=== PATIENT | male | born 1965 | race Caucasian/White ===

== ENCOUNTER 2020-09-30 17:24 | Emergency (ER) | payer OTHER, SELFPAY ==
[2020-09-30 17:25] VITALS: BP 128/75; PULSE 76; RESP 14; TEMP 35.3; O2SAT 96; BMI 32.1
--- NOTE | 2020-09-30 18:27 | CT_ITS ---
INDICATION: flank pain lt side EXAMINATION: CT Abdomen And Pelvis W/O Contrast Injection TECHNIQUE: Helically acquired images were obtained of the abdomen and pelvis without the use of IV contrast. A radiation dose optimization technique was used for this scan. Oral contrast: None. COMPARISON: None FINDINGS: Evaluation of the solid organs and vascular structures is limited without intravenous contrast. Visualized lung bases: Unremarkable Liver: Unremarkable Gallbladder: Contracted. Spleen: Unremarkable Pancreas: Unremarkable Adrenal Glands: Unremarkable Kidneys: Unremarkable Vasculature: Mild scattered aortoiliac atherosclerotic calcifications. GI Tract: Unremarkable Lymphadenopathy: None Peritoneum: No ascites. Bladder: Unremarkable Reproductive organs: Unremarkable Bones/Soft tissues: There are diffuse degenerative changes of the spine. CT/Abdomen/Pelvis without Cont IMPRESSION: No acute abnormalities in the abdomen or pelvis. Electronically Signed: Liang Marks MD at 19:28 EDT Tel , Service support ,
[2020-09-30 18:51] LABS: Color, Urine Yellow (Yellow); Glucose, Dipstick Normal (Normal); Ketone-Dipstick Negative (Negative); Leukocyte Esterase-Dipstick Negative /ul (Negative); Nitrite-Dipstick Negative (Negative); Occult Blood-Urine Negative /ul (Negative); Protein-Dipstick Negative (Negative); Specific Gravity, Urine 1.025 (1.002-1.030); Urine Bilirubin Dipstick Negative (Negative); Urine Clarity Clear (Clear); Urine Urobilinogen Normal (Normal)
[2020-09-30 18:52] LABS: Bacteria 0 SEEN /hpf (None Seen); Mucous, Urine 0 SEEN /hpf (<or=2+); Red Blood Cells-Urine 0 SEEN /hpf (0-5); Squamous Epithelial Cells - UA 0 SEEN /hpf (0-5); White Blood Cells 0 SEEN /hpf (0-5)
[2020-09-30 18:57] LABS: Absolute Lymphocyte Count 2.45 X10^3/uL (0.83-4.51); Absolute Neutrophil Count 4.9 X10^3/uL (2.0-7.7); Basophil# 0.08 X10^3/uL; Basophil% 0.9 % (0-1); Eosinophil# 0.33 X10^3/uL; Eosinophils% 3.9 % (0-5); Hematocrit 43.4 % (40-54); Hemoglobin 14.3 g/dL (13.0-16.5); Lymphocyte # 2.45 X10^3/ul (0.83-4.51); Lymphocyte % 28.9 % (19-41); Mean Corp Hgb Conc 32.9 g/dL (32-36); Mean Corpuscular Hgb 28.9 pg (27.0-32.0); Mean Corpuscular Volume 87.9 fL (80-94); Mean Platelet Vol. 9.8 fl (6.2-12.0); Monocyte# 0.69 X10^3/uL; Monocyte% 8.1 % (0-10); NRBC Flagged by Analyzer 0 % (0-5); Neutrophil # 4.89 X10^3/uL (2.7-7.7); Neutrophil % 57.8 % (47-70); Platelet Count 241 K/mm3 (150-450); RBC Distribution Width SD 41.9 fl (35.1-43.9); Red Blood Count 4.94 M/mm3 (4.6-6.2); White Blood Count 8.5 K/mm3 (4.4-11.0)
[2020-09-30 19:05] LABS: Anion Gap 4 (5-15); BUN 16 mg/dL (7-18); BUN/Creat Ratio 15.7 RATIO (10-20); Calcium,Total 8.9 mg/dL (8.5-10.1); Chloride 107 mmol/L (98-107); Creatinine, Serum 1.02 mg/dL (0.70-1.30); EST Glomerular Filtration Rate 80 mL/min (>60); Est Glom Filt Rate - Afr Amer 97 mL/min (>60); Estimated Creatinine Clearance 91.39 ml/min; Glucose 88 mg/dL (74-106); Potassium 3.8 mmol/L (3.5-5.1); Sodium Level 139 mmol/L (136-145)
--- NOTE | 2020-09-30 20:18 | EX.ED.DYSGE1 ---
HPI History of Present Illness Chief Complaint: Flank Pain Narrative Narrative: Patient presents with left flank pain and left paraspinal back pain for the past 2 days he thinks this may be a kidney stone. He has no urinary symptoms no testicular pain no abdominal pain. The pain does not radiate down his leg he has no bowel or bladder compromise. He has no urinary retention symptoms. [facility] Medical History (Updated 09/30/20 @ 20:[address] Soy Santana MD) HTN (hypertension) Home Medications Hydrochlorothiazide 06/11/13 [History Last Taken Unknown] aspirin 325 mg PO DAILY@0800 #90 tablet 06/12/13 [Rx Last Taken Unknown] metoprolol succinate 25 mg PO DAILY #90 tablet 06/12/13 [Rx Last Taken Unknown] atorvastatin 80 mg tablet 80 mg PO QHS #30 tab 11/13/17 [Rx Last Taken Unknown] lisinopril 10 mg tablet 10 mg PO DAILY #30 tab 11/13/17 [Rx Last Taken Unknown] Allergy/AdvReac Type Severity Reaction Status Date / Time No Known Allergies Allergy Verified 09/30/20 17:25 Social History Smoking Status: Current some day smoker tobacco type: smokeless tobacco ROS ROS ED ROS Narrative Past medical history: Reviewed Medications: Reviewed Social history: Noncontributory Review of systems: All systems negative except as indicated General: No fever Eyes: No visual changes ENT: No upper airway congestion, normal voice Neck: No neck pain Cardiovascular: No chest pain Respiratory: No shortness of breath or cough Gastrointestinal: No abdominal pain, nausea vomiting or diarrhea Genitourinary: No dysuria Musculoskeletal: Denies myalgias no difficulty with ambulation. Back: Back pain as in HPI Skin: No rash Neurological: No memory loss, confusion or any focal weakness Psych: No recent behavioral changes Hematologic: No easy bleeding or easy bruising EXAM Physical Exam Narrative Exam Narrative: Vitals reviewed General: Patient appears in some discomfort HEENT: Moist mucous membranes Neck: Nontender Cardiovascular normal heart rate Respiratory: No respiratory difficulty speaking in full sentences Abdomen: Soft and nontender, there is no suprapubic mass or pain Back: There is some tenderness over the lumbar region, pain is spinal and paraspinal both. Extremities: Moves all extremities without joint pain or signs of trauma Neurological: There is normal plantar flexion and dorsiflexion of both feet and great toes. Patellar and Achilles reflexes are normal. Normal strength and sensation. Negative straight leg test. Skin: No rash Psychiatric: Slightly anxious. Const Vital Signs: 09/30/20 17:25 Temperature 95.6 F L Temperature Source Temporal Pulse Rate 76 Respiratory Rate 14 Blood Pressure 128/75 H Blood Pressure Mean 92 Pulse Ox 96 Oxygen Delivery Method Room Air MDM MDM MDM Narrative Medical decision making narrative: Patient was quite worried about a possible kidney stone, results do not show a kidney stone he appears well I will discharge him with reassurance he does not want any analgesia. Lab Data Labs: Laboratory Results - last 24 hr 09/30/20 09/30/20 09/30/20 18:37 18:37 18:45 WBC 8.5 RBC 4.94 Hgb 14.3 Hct 43.4 MCV 87.9 MCH 28.9 MCHC 32.9 RDW Std Deviation 41.9 RDW Coeff of Luis Armando 13.0 Plt Count 241 MPV 9.8 Immature Gran % (Auto) 0.400 Neut % (Auto) 57.8 Lymph % (Auto) 28.9 [place] % (Auto) 8.1 Eos % (Auto) 3.9 Baso % (Auto) 0.9 Absolute Neuts (auto) 4.9 Absolute Lymphs (auto) 2.45 Nucleated RBC % 0 Sodium 139 Potassium 3.8 Chloride 107 Carbon Dioxide 28.0 Anion Gap 4 L BUN 16 Creatinine 1.02 Estim Creat Clear Calc 91.39 Est GFR (MDRD) Af Amer 97 Est GFR (MDRD) Non-Af 80 BUN/Creatinine Ratio 15.7 Glucose 88 Calcium 8.9 Urine Color Yellow Urine Clarity Clear Urine pH 5.0 Ur Specific [place] 1.025 Urine Protein Negative Urine Glucose (UA) Normal Urine Ketones Negative Urine Occult Blood Negative Urine Nitrite Negative Urine Bilirubin Negative Urine Urobilinogen Normal Ur Leukocyte Esterase Negative Urine RBC 0 SEEN Urine WBC 0 SEEN Ur Squamous Epith Cells 0 SEEN Urine Bacteria 0 SEEN Urine Mucus 0 SEEN Radiography Diagnostic Testing: Radiology Impression Abdomen/Pelvis CT 09/30/20 18:27 IMPRESSION: No acute abnormalities in the abdomen or pelvis. Electronically Signed: Liang Marks MD at 19:28 EDT Tel , Service support , Discharge Plan Triage Chief Complaint: Flank Pain ED Provider: Soy Santana Dx/Rx/DC Orders Clinical Impression: Back pain Instructions: Back Exercises: Back Press, Back Exercises: Hip Rotator Stretch Prescriptions: No Action Hydrochlorothiazide RF: 0 aspirin 325 MG tablet 325 mg PO DAILY@0800 Qty: 90 RF: 3 metoprolol succinate 25 MG tablet 25 mg PO DAILY Qty: 90 RF: 3 atorvastatin 80 mg tablet 80 mg PO QHS Qty: 30 RF: 11 lisinopril 10 mg tablet 10 mg PO DAILY Qty: 30 RF: 11 Primary Care Provider: Darien Ball III Referrals: Darien Ball III, MD [Primary Care Provider] - 2 Days Disposition Disposition: Home, Self Care
== END 2020-09-30 20:24 | disposition home or self-care (01) ==
PROVIDERS: Emergency Provider Emergency Medicine; PCP Family Medicine
DX: R10.9 Unspecified abdominal pain (principal); M54.9 Dorsalgia, unspecified; I10 Essential (primary) hypertension; F17.210 Nicotine dependence, cigarettes, uncomplicated
CPT/HCPCS: 74176; 80048; 81001; 85025; 99282; A4216

== ENCOUNTER → 2021-01-20 | Outpatient (CLI) | payer OTHER, SELFPAY | END | disposition home or self-care (01) | LOC: LABSPEC 13:39 | PROVIDERS: Referring Provider Physician Assistant; Visit Provider Physician Assistant | DX: U07.1 COVID-19 (principal) | CPT/HCPCS: 87635; U0005; U0003 ==

== ENCOUNTER 2021-01-21 15:52 | Outpatient (CLI) | payer OTHER, SELFPAY ==
[2021-01-21] MEDS: 0.9% Saline Lock 10 ML Syringe IV (16:03)
[2021-01-21 16:04] VITALS: BP 132/90; PULSE 85; RESP 16; TEMP 37.4; BMI 32.4
[2021-01-21 16:45] VITALS: BP 130/80; PULSE 83; RESP 16; TEMP 37.5; O2SAT 96
[2021-01-21 17:50] VITALS: BP 132/72; PULSE 77; RESP 16; TEMP 37.2
== END 2021-01-21 17:50 | disposition home or self-care (01) ==
LOC: MS3OUT 15:53 → MS3 15:53
PROVIDERS: Referring Provider Nurse Practitioner Adult Health; Visit Provider Nurse Practitioner Adult Health
DX: Z23 Encounter for immunization (principal); U07.1 COVID-19
CPT/HCPCS: J7050; M0243; A4216; Q0244

== ENCOUNTER 2021-01-27 13:54 | Emergency (ER) | payer OTHER, SELFPAY ==
[2021-01-27 13:55] VITALS: BP 150/86; PULSE 90; RESP 18; TEMP 36.1; O2SAT 96; BMI 31.6
--- NOTE | 2021-01-27 14:08 | EX.ED.DYSGE1 ---
HPI History of Present Illness Chief Complaint: General Illness Informant: patient and spouse/S.O. Narrative Narrative: 55-year-old male with history of hypertension and hypercholesterolemia presents to the emergency room with fatigue. Patient states that he was tested on 06 January and was positive for Covid. He states that he continues to feel fatigue and nothing tastes good. is concerned that he is dehydrated because he has not been drinking as much. He notes that he has lost some weight. Currently other than fatigue he is not really experiencing any other symptomology. He notes a slight nonproductive cough. Patient did receive monoclonal antibody infusion approximately 1 week ago [facility] Medical History COVID-19 HTN (hypertension) Hypercholesterolemia Home Medications metoprolol succinate 25 mg PO DAILY #90 tablet 06/12/13 [Rx Last Taken Unknown] atorvastatin 80 mg tablet 80 mg PO QHS #30 tab 11/13/17 [Rx Last Taken Unknown] lisinopril 10 mg tablet 10 mg PO DAILY #30 tab 11/13/17 [Rx Last Taken Unknown] hydrochlorothiazide 12.5 mg PO DAILY 01/21/21 [History Last Taken Unknown] aspirin 81 mg PO DAILY 01/27/21 [History Last Taken Unknown] Allergy/AdvReac Type Severity Reaction Status Date / Time No Known Allergies Allergy Verified 01/27/21 13:57 Social History (Updated 01/27/21 @ 14:[address] Teddy Carpenter, ) current gender identity: male Smoking Status: Current some day smoker tobacco type: smokeless tobacco substance use type: does not use ROS ROS ED ROS Narrative Generalized fatigue Constitutional Constitutional ED: Reports sweats; Denies chills or weight loss Eyes Eyes: Denies change in vision or diplopia ENT ENT ED: Denies ear pain, rhinorrhea or sore throat Cardiovascular Cardiovascular: Denies chest pain, orthopnea, palpitations or racing heartbeat Respiratory/Chest Respiratory/Chest: Reports cough; Denies dyspnea or orthopnea Gastrointestinal Gastrointestinal: Denies abdominal pain, diarrhea, nausea or vomiting Genitourinary Genitourinary ED: Denies dysuria, hematuria or urinary frequency Musculoskeletal Musculoskeletal: Denies arthralgias or myalgias Integumentary Denies abscess or rash Neurologic Neurologic: Denies headache(s) or weakness Psychiatric Psychiatric: Denies anxiety, depression, suicidal ideation or suicidal thoughts Endocrine Endocrinology: Denies polydipsia, polyphagia or polyuria Allergic/Immunologic Allergic/Immunologic ED: Denies mouth swelling, tongue swelling or urticaria EXAM Physical Exam Const Vital Signs: 01/27/21 13:55 01/27/21 14:34 Temperature 97 F L Temperature Source Temporal Pulse Rate 90 Respiratory Rate 18 Respiratory Effort Normal Respiratory Pattern Normal Blood Pressure 150/86 H Blood Pressure Mean 107 Pulse Ox 96 Oxygen Delivery Method Room Air Positive well nourished and well developed General Appearance ED: well developed HEENT Reports normocephalic, head/scalp atraumatic, TM's clear and moist mucous membranes Negative for trauma Tympanic Membrane ED: Yes TM's clear Eyes PERRL and EOMs intact bilaterally Neck no lymphadenopathy, supple and no JVD Resp normal respiratory effort and clear to auscultation bilaterally Cardio regular rate, regular rhythm and no murmurs GI normal to inspection, nondistended, normoactive bowel sounds and non-tender Palpation: soft Back/Spine no CVA tenderness and normal ROM Lumbar Spine / Lower Back: Negative for lumbar spinal tenderness Extremity normal to inspection General Extremety ED: Negative for edema General Extremity: Negative for edema Neuro oriented x3 and CN's II-XII intact bilaterally Sensorium / Orientation: alert Motor Exam: strength 5/5 throughout Psych mental status grossly normal Mood & Affect: Negative for depressed or tearful Skin no rashes or lesions noted and no wounds MDM MDM MDM Narrative Medical decision making narrative: Blood work shows a white count of 7.4. Sodium potassium chloride within normal limits. Anion gap is 6 with CO2 of 30. Creatinine 0.99 and a BUN of 21. Slight elevation of his transaminases and bilirubin compared to his baseline. Patient received a liter of IV fluids. He will be discharged home with continued supportive care. Lab Data Attestation: I reviewed the patient's lab results. Labs: Laboratory Results - last 24 hr 01/27/21 01/27/21 14:10 14:10 WBC 7.4 RBC 5.20 Hgb 15.0 Hct 44.1 MCV 84.8 MCH 28.8 MCHC 34.0 RDW Std Deviation 39.0 RDW Coeff of Luis Armando 12.7 Plt Count 300 MPV 9.5 Immature Gran % (Auto) 0.500 Neut % (Auto) 74.8 H Lymph % (Auto) 13.9 L [place] % (Auto) 8.9 Eos % (Auto) 1.6 Baso % (Auto) 0.3 Absolute Neuts (auto) 5.6 Absolute Lymphs (auto) 1.03 Nucleated RBC % 0 Sodium 136 Potassium 3.8 Chloride 100 Carbon Dioxide 30.0 Anion Gap 6 BUN 21 H Creatinine 0.99 Estim Creat Clear Calc 94.16 Est GFR (MDRD) Af Amer 101 Est GFR (MDRD) Non-Af 83 BUN/Creatinine Ratio 21.3 H Glucose 116 H Calcium 9.0 Total Bilirubin 1.10 H AST 48 H ALT 100 H Alkaline Phosphatase 80 Total Protein 7.5 Albumin 2.9 L Globulin 4.6 H Albumin/Globulin Ratio 0.6 L Discharge Plan Triage Chief Complaint: General Illness ED Provider: Teddy Carpenter Dx/Rx/DC Orders Clinical Impression: COVID-19 Instructions: Coronavirus Disease 2019 (COVID-19): Caring for Yourself or Others Prescriptions: No Action metoprolol succinate 25 MG tablet 25 mg PO DAILY Qty: 90 RF: 3 hydrochlorothiazide 12.5 mg capsule 12.5 mg PO DAILY RF: 0 aspirin 81 mg tablet,delayed release (DR/EC) 81 mg PO DAILY RF: 0 atorvastatin 80 mg tablet 80 mg PO QHS Qty: 30 RF: 11 lisinopril 10 mg tablet 10 mg PO DAILY Qty: 30 RF: 11 Primary Care Provider: Care Physician,No Primary Referrals: NOT,DEFINED [NON-STAFF] - Disposition Disposition: Home, Self Care
[2021-01-27 14:26] LABS: Absolute Lymphocyte Count 1.03 X10^3/uL (0.83-4.51); Absolute Neutrophil Count 5.6 X10^3/uL (2.0-7.7); Basophil# 0.02 X10^3/uL; Basophil% 0.3 % (0-1); Eosinophil# 0.12 X10^3/uL; Eosinophils% 1.6 % (0-5); Hematocrit 44.1 % (40-54); Lymphocyte # 1.03 X10^3/ul (0.83-4.51); Lymphocyte % 13.9 % (19-41); Mean Corpuscular Hgb 28.8 pg (27.0-32.0); Mean Corpuscular Volume 84.8 fL (80-94); Mean Platelet Vol. 9.5 fl (6.2-12.0); Monocyte# 0.66 X10^3/uL; Monocyte% 8.9 % (0-10); NRBC Flagged by Analyzer 0 % (0-5); Neutrophil # 5.56 X10^3/uL (2.7-7.7); Neutrophil % 74.8 % (47-70); Platelet Count 300 K/mm3 (150-450); RBC Distribution Width CV 12.7 % (11.6-14.6); White Blood Count 7.4 K/mm3 (4.4-11.0)
[2021-01-27] MEDS: 0.9% Normal Saline 1,000 ML 1000 ML IV (14:31)
[2021-01-27 14:39] LABS: ALB/GLOB Ratio 0.6 RATIO (0.9-2.4); AST(SGOT) 48 U/L (15-37); Alanine Aminotransfer ALT/SGPT 100 U/L (16-61); Albumin, Serum 2.9 g/dL (3.2-5.0); Alkaline Phosphatase 80 U/L (45-117); Anion Gap 6 (5-15); BUN 21 mg/dL (7-18); BUN/Creat Ratio 21.3 RATIO (10-20); Chloride 100 mmol/L (98-107); Creatinine, Serum 0.99 mg/dL (0.70-1.30); EST Glomerular Filtration Rate 83 mL/min (>60); Est Glom Filt Rate - Afr Amer 101 mL/min (>60); Estimated Creatinine Clearance 94.16 ml/min; Globulin 4.6 g/dL (2.2-4.2); Glucose 116 mg/dL (74-106); Potassium 3.8 mmol/L (3.5-5.1); Protein, Total 7.5 g/dL (6.4-8.2); Sodium Level 136 mmol/L (136-145)
[2021-01-27 15:15] LABS: Bacteria 0 SEEN /hpf (None Seen); Mucous, Urine 0 SEEN /hpf (<or=2+); Red Blood Cells-Urine 0 SEEN /hpf (0-5)
[2021-01-27 15:17] LABS: Color, Urine Yellow (Yellow); Glucose, Dipstick Normal (Normal); Ketone-Dipstick 15 mg/dl (Negative); Leukocyte Esterase-Dipstick 25 /ul (Negative); Nitrite-Dipstick Negative (Negative); Occult Blood-Urine Negative /ul (Negative); Protein-Dipstick 30 mg/dl (Negative); Specific Gravity, Urine 1.015 (1.002-1.030); Urine Bilirubin Dipstick Negative (Negative); Urine Clarity Sl. Cloudy (Clear); Urine Urobilinogen 4 mg/dl (Normal)
[2021-01-27 15:22] LABS: Squamous Epithelial Cells - UA 0-5 SEEN /hpf (0-5); White Blood Cells 0-5 SEEN /hpf (0-5)
[2021-01-27 16:03] VITALS: PULSE 81; RESP 18; O2SAT 98
== END 2021-01-27 16:04 | disposition home or self-care (01) ==
LOC: ED 14:15
PROVIDERS: Emergency Provider Emergency Medicine
DX: U07.1 COVID-19 (principal); I10 Essential (primary) hypertension; E78.00 Pure hypercholesterolemia, unspecified; F17.210 Nicotine dependence, cigarettes, uncomplicated; Z79.82 Long term (current) use of aspirin
CPT/HCPCS: 80053; 81001; 85025; 96360; 96361; 99283; J7030

== ENCOUNTER 2021-02-09 17:59 | Emergency (ER) | payer OTHER, SELFPAY ==
[2021-02-09 17:59] VITALS: BP 128/75; PULSE 172; RESP 16; TEMP 36.6; O2SAT 99; BMI 31.4
--- NOTE | 2021-02-09 18:07 | EKG12_ITS ---
Test Reason : HR Blood Pressure : / mmHG Vent. Rate : 170 BPM Atrial Rate : 071 BPM P-R Int : 000 ms QRS Dur : 092 ms QT Int : 276 ms P-R-T Axes : 000 060 053 degrees QTc Int : 464 ms Supraventricular tachycardia Nonspecific ST abnormality Abnormal ECG Confirmed by LÁZARO HUTSON, CHAD ([id number]), video tape editor KYAW MARTINEZ ([id number]) on 02/11/2021 8:38:30 AM Referred By: Confirmed By:CHAD SESAY MD
[2021-02-09 18:16] LABS: Absolute Lymphocyte Count 2.74 X10^3/uL (0.83-4.51); Absolute Neutrophil Count 6.4 X10^3/uL (2.0-7.7); Basophil# 0.06 X10^3/uL; Basophil% 0.6 % (0-1); Eosinophil# 0.13 X10^3/uL; Eosinophils% 1.2 % (0-5); Hematocrit 40.7 % (40-54); Hemoglobin 13.6 g/dL (13.0-16.5); Lymphocyte # 2.74 X10^3/ul (0.83-4.51); Lymphocyte % 26.2 % (19-41); Mean Corp Hgb Conc 33.4 g/dL (32-36); Mean Corpuscular Hgb 28.9 pg (27.0-32.0); Mean Corpuscular Volume 86.4 fL (80-94); Mean Platelet Vol. 9.3 fl (6.2-12.0); Monocyte# 1.06 X10^3/uL; Monocyte% 10.2 % (0-10); NRBC Flagged by Analyzer 0 % (0-5); Neutrophil % 61.3 % (47-70); Platelet Count 275 K/mm3 (150-450); RBC Distribution Width CV 13.3 % (11.6-14.6); RBC Distribution Width SD 41.4 fl (35.1-43.9); Red Blood Count 4.71 M/mm3 (4.6-6.2); White Blood Count 10.4 K/mm3 (4.4-11.0)
--- NOTE | 2021-02-09 18:28 | RAD_ITS ---
EXAM: XR CHEST, 1 VIEW CLINICAL INDICATION: chest pain TECHNIQUE: Frontal view of the chest. This report was created using [employer] report generation technology. COMPARISON: None. FINDINGS: LUNGS AND PLEURAL SPACES: Right lower lobe pneumonia. No pneumothorax. No effusion. HEART: Unremarkable. Cardiac silhouette not enlarged. MEDIASTINUM: Central airways and mediastinal contour are unremarkable. BONES/JOINTS: Unremarkable. SOFT TISSUES: Unremarkable. RAD/Chest 1 View (Portable) IMPRESSION: Right lower lobe pneumonia. Electronically Signed: Jorge Diaz MD at 19:49 EST , Service support ,
[2021-02-09 18:37] LABS: Anion Gap 7 (5-15); BUN 14 mg/dL (7-18); BUN/Creat Ratio 13.9 RATIO (10-20); Calcium,Total 8.9 mg/dL (8.5-10.1); Chloride 106 mmol/L (98-107); Creatinine, Serum 1.01 mg/dL (0.70-1.30); EST Glomerular Filtration Rate 81 mL/min (>60); Est Glom Filt Rate - Afr Amer 98 mL/min (>60); Estimated Creatinine Clearance 92.29 ml/min; Glucose 123 mg/dL (74-106); Potassium 3.8 mmol/L (3.5-5.1); Sodium Level 138 mmol/L (136-145); Troponin-I HS 10 pg/mL (3.0-78.0)
[2021-02-09 18:50] VITALS: BP 100/79; PULSE 165; RESP 25; O2SAT 97
[2021-02-09 19:05] VITALS: BP 123/87; PULSE 103; RESP 14; O2SAT 97
--- NOTE | 2021-02-09 19:09 | EDS_ITS ---
HPI History of Present Illness Chief Complaint: Palpitations Narrative Narrative: 55-year-old male with history of hypertension and SVT presenting with chest pain and palpitations. He states he did not take his metoprolol today. Patient states that he was working and felt like he was a little more short of breath than usual. He is having palpitations. He is not having chest pressure. Patient states that previously he was on metoprolol 25 mg p.o. twice daily however his primary care physician Dr. Ball change this to once a day. Patient states he is previously had this and states he had a negative cardiac catheterization after he had this chest pain. He does admit to a history of hyperlipidemia and hypertension as well. [facility] Medical History COVID-19 HTN (hypertension) Hypercholesterolemia Home Medications metoprolol succinate 25 mg PO DAILY #90 tablet 06/12/13 [Rx Last Taken Unknown] atorvastatin 80 mg tablet 80 mg PO QHS #30 tab 11/13/17 [Rx Last Taken Unknown] lisinopril 10 mg tablet 10 mg PO DAILY #30 tab 11/13/17 [Rx Last Taken Unknown] hydrochlorothiazide 12.5 mg PO DAILY 01/21/21 [History Last Taken Unknown] aspirin 81 mg PO DAILY 01/27/21 [History Last Taken Unknown] Allergy/AdvReac Type Severity Reaction Status Date / Time No Known Allergies Allergy Verified 02/09/21 18:06 Social History Smoking Status: Current some day smoker tobacco type: cigarettes and smokeless tobacco substance use type: does not use ROS ROS ED Constitutional Constitutional ED: Denies chills or fever(s) Eyes Eyes: Denies blurry vision or diplopia ENT ENT ED: Denies rhinorrhea or sore throat Cardiovascular Cardiovascular: Reports chest pain, palpitations and racing heartbeat Respiratory/Chest Respiratory/Chest: Reports dyspnea; Denies cough or sputum Gastrointestinal Gastrointestinal: Denies abdominal pain, nausea or vomiting Genitourinary Genitourinary ED: Denies dysuria or hematuria Musculoskeletal Musculoskeletal: Denies arthralgias or myalgias Integumentary Denies abscess or rash Neurologic Neurologic: Denies headache(s) or paresthesias EXAM Physical Exam Const Vital Signs: 02/09/21 17:59 02/09/21 18:50 02/09/21 19:05 Temperature 97.8 F Temperature Source Temporal Pulse Rate 172 H 165 H 103 H Respiratory Rate 16 25 H 14 Blood Pressure 128/75 H 100/79 123/87 H Blood Pressure Mean 92 86 99 Pulse Ox 99 97 97 Oxygen Delivery Method Room Air Room Air Room Air 02/09/21 20:05 Temperature Temperature Source Pulse Rate 94 Respiratory Rate 19 H Blood Pressure 122/77 H Blood Pressure Mean 92 Pulse Ox 97 Oxygen Delivery Method Room Air Positive well nourished General Appearance ED: NAD; Negative for pallor HEENT normocephalic and atraumatic Eyes PERRL and EOMs intact bilaterally Cardio regular rhythm Rate: tachycardic Extremity normal to inspection Neuro oriented x3 Sensorium / Orientation: awake and alert Psych mental status grossly normal Skin General Skin Exam: Negative for jaundice or pallor Heart Score History: Slightly/Non-Suspicious ECG: Normal Age: >45 - <65 years Risk Factors: 1 or 2 Risk Factors Troponin: </= Normal Limit Score: 2 MDM MDM MDM Narrative Medical decision making narrative: Patient presenting with chest pain and palpitations. States of going on for about 2 hours. Patient has a history of SVT and has not taken his metoprolol today. On arrival his EKG shows a SVT with a rate of 170 bpm on my interpretation. By auscultating the patient's lungs he did spontaneously go into a sinus rhythm at a rate of 103 bpm and slowly went into the 80s. His CBC shows no leukocytosis and his hemoglobin medic are stable. Renal function electrolytes are normal. Troponin initially is 10. I will check a second troponin. Given he has a history of this and did not take his medication I feel if he has 2 - troponins likely he is safe for home. I will give him his metoprolol tonight as he normally takes this in the morning he will continue to take it at night. Patient second troponin came back at 36. This is technically a change of greater than 20. I did speak with Dr. Wharton we discussed his previous heart catheterization as well as risk factors. We both feel as if his troponin is likely bumped due to the SVT for an hour and 1/2 to 2 hours. Patient felt immediately better when his heart converted to sinus rhythm. He is not having typical features of angina. Chest x-ray my interpretation shows right lower lobe infiltrates. He did have a CTA of his chest to rule out PE given his recent diagnosis of Covid. This is negative for pulmonary emboli but does show bilateral pneumonia. I feel this would be consistent with having recent COVID-19. Patient has been checking his pulse ox and has not had any low pulse ox. He has not had a return of any fever. Has been eating and drinking normally. He feels well and has been working. At this point I feel the patient is stable to be discharged home. He will follow up with Dr. Wharton on an outpatient basis. He is given return precautions. Impression: 1. Chest pain 2. SVT 3. History of COVID-19 Lab Data Labs: Laboratory Results - last 24 hr 02/09/21 02/09/21 02/09/21 18:10 18:10 20:05 WBC 10.4 RBC 4.71 Hgb 13.6 Hct 40.7 MCV 86.4 MCH 28.9 MCHC 33.4 RDW Std Deviation 41.4 RDW Coeff of Luis Armando 13.3 Plt Count 275 MPV 9.3 Immature Gran % (Auto) 0.500 Neut % (Auto) 61.3 Lymph % (Auto) 26.2 [place] % (Auto) 10.2 H Eos % (Auto) 1.2 Baso % (Auto) 0.6 Absolute Neuts (auto) 6.4 Absolute Lymphs (auto) 2.74 Nucleated RBC % 0 Sodium 138 Potassium 3.8 Chloride 106 Carbon Dioxide 25.0 Anion Gap 7 BUN 14 Creatinine 1.01 Estim Creat Clear Calc 92.29 Est GFR (MDRD) Af Amer 98 Est GFR (MDRD) Non-Af 81 BUN/Creatinine Ratio 13.9 Glucose 123 H Calcium 8.9 Troponin I High Sens 10 36 Radiography Diagnostic Testing: Clinical Impression(s) from Imaging Studies Chest X-Ray 02/09/21 18:28 IMPRESSION: Right lower lobe pneumonia. Electronically Signed: Jorge Diaz MD at 19:49 EST , Service support , Chest CTA 02/09/21 19:27 IMPRESSION: 1. There is bilateral pneumonia. 2. There is NO PE. Electronically Signed: Jorge Diaz MD at 20:08 EST , Service support , Discharge Plan Triage Chief Complaint: Palpitations ED Provider: Rashad Garvey Dx/Rx/DC Orders Instructions: ED Understanding Supraventricular Tachycardia (SVT) Prescriptions: No Action metoprolol succinate 25 MG tablet 25 mg PO DAILY Qty: 90 RF: 3 hydrochlorothiazide 12.5 mg capsule 12.5 mg PO DAILY RF: 0 aspirin 81 mg tablet,delayed release (DR/EC) 81 mg PO DAILY RF: 0 atorvastatin 80 mg tablet 80 mg PO QHS Qty: 30 RF: 11 lisinopril 10 mg tablet 10 mg PO DAILY Qty: 30 RF: 11 Primary Care Provider: Care Physician,No Primary Referrals: Soy Wharton MD [STAFF PHYSICIAN] - As Needed Care Physician,No Primary [Primary Care Provider] - Disposition Disposition: Home, Self Care
--- NOTE | 2021-02-09 19:13 | EKG12_ITS ---
Test Reason : REPEAT Blood Pressure : / mmHG Vent. Rate : 100 BPM Atrial Rate : 100 BPM P-R Int : 156 ms QRS Dur : 090 ms QT Int : 360 ms P-R-T Axes : 046 049 037 degrees QTc Int : 464 ms Somatic/Motion Artifact Sinus rhythm Low voltage QRS Borderline ECG Confirmed by LÁZARO HUTSON, CHAD ([id number]), publishing editor KYAW MARTINEZ ([id number]) on 02/11/2021 8:39:17 AM Referred By: JAY Confirmed By:CHAD SESAY MD
[2021-02-09] MEDS: Metoprolol(XL)Succ 25 MG Tablet PO (19:16)
--- NOTE | 2021-02-09 19:27 | CT_ITS ---
EXAM: CT ANGIOGRAPHY CHEST WITHOUT AND WITH INTRAVENOUS CONTRAST CLINICAL INDICATION: chest pain TECHNIQUE: Helically acquired angiography images were obtained of the chest without and with intravenous contrast. This CT exam was performed using one or more of the following dose reduction techniques: automated exposure control, adjustment of the mA and/or kV according to patient size, and/or use of iterative reconstruction technique. This report was created using [employer] report generation technology. MIP reconstructed images were created and reviewed. CONTRAST: IV 100mL [id number] COMPARISON: None. FINDINGS: PULMONARY ARTERIES: There is NO PE. Normal in caliber. No evidence of pulmonary embolism. AORTA: There is atherosclerotic calcification of the aortic arch with tortuosity and elongation of the aortic arch and descending thoracic aorta. Normal in caliber. No evidence of dissection. GREAT VESSELS OF AORTIC ARCH: Unremarkable. Normal in caliber. No evidence of dissection. LUNGS AND PLEURAL SPACES: There is bilateral pneumonia. No mass. No pleural effusion or thickening. HEART: There are calcifications of the coronary arteries. No pericardial effusion. No signs of right heart strain, ratio of right ventricle to left ventricle measures less than 1. MEDIASTINUM: Unremarkable. No mediastinal or hilar adenopathy. Esophagus is unremarkable. No hiatal hernia. THYROID: Unremarkable. No thyroid lesions. BONES/JOINTS: Unremarkable. No suspicious lytic or blastic abnormality. CT/CTA Chest W/WO Contrast IMPRESSION: 1. There is bilateral pneumonia. 2. There is NO PE. Electronically Signed: Jorge Diaz MD at 20:08 EST , Service support ,
[2021-02-09 20:05] VITALS: BP 122/77; PULSE 94; RESP 19; O2SAT 97
[2021-02-09 20:34] LABS: Troponin-I HS 36 pg/mL (3.0-78.0)
[2021-02-09 21:09] VITALS: BP 116/92; PULSE 100; RESP 18; O2SAT 98
== END 2021-02-09 21:11 | disposition home or self-care (01) ==
PROVIDERS: Emergency Provider Student in an Organized Health Care Education/Training Program
DX: I47.1 Supraventricular tachycardia (principal); J18.9 Pneumonia, unspecified organism; Z86.16 Personal history of COVID-19; F17.210 Nicotine dependence, cigarettes, uncomplicated; I10 Essential (primary) hypertension; E78.00 Pure hypercholesterolemia, unspecified; E78.5 Hyperlipidemia, unspecified; Z79.82 Long term (current) use of aspirin
CPT/HCPCS: 36415; 71045; 71275; 80048; 84484; 85025; 93005; 99285; Q9967; A4216; J0153

== ENCOUNTER 2021-04-09 12:44 | Outpatient (CLI) | payer BC, SELFPAY ==
--- NOTE | 2021-04-09 12:46 | ECHOD_ITS ---
Reason For Study: Arrhythmia Procedure This was a 2D Doppler, Color Flow transthoracic echocardiogram. Exam performed in department. Left Ventricle Normal LV size. Left ventricular systolic function is normal. The estimated ejection fraction is 60 %. Normal diastology for age. No regional wall motion abnormalities noted. Right Ventricle Normal RV size. Normal systolic function. Atria Normal left atrium. Normal right atrium. Mitral Valve Normal mitral valve. Tricuspid Valve Normal tricuspid valve. Mild tricuspid valve insufficiency. Aortic Valve Trisinus/trileaflet aortic valve. Pulmonic Valve The pulmonic valve is not well visualized. Great Vessels Normal aortic root. The pulmonary artery is normal size. Normal inferior vena cava. Pericardium/Pleural No pericardial effusion. MMode/2D Measurements & Calculations LVIDd: 5.1 cm IVSd: 1.4 cm Ao root diam: 2.9 cm LVIDs: 2.8 cm LVPWd: 1.2 cm RVDd: 3.0 cm FS: 45.0 % LAV(MOD-bp): 47.1 ml LVAd ap4: 27.0 cm2 SV(MOD-sp4): 39.8 ml LAV(MOD-bp) Indexed: 19.9 ml/m2 LVLd ap4: 9.1 cm LAV(MOD-sp2): 46.6 ml EDV(MOD-sp4): 67.9 ml LAV(MOD-sp4): 42.0 ml EDV(sp4-el): 68.5 ml LVAs ap4: 15.2 cm2 LVLs ap4: 7.1 cm ESV(MOD-sp4): 28.1 ml ESV(sp4-el): 27.6 ml EF(MOD-sp4): 58.6 % EF(sp4-el): 59.7 % SV(sp4-el): 40.9 ml LA A4 area: 15.6 cm2 LA dimension(2D): 4.2 cm RA A4 area: 14.6 cm2 Doppler Measurements & Calculations MV E max roberto: 85.3 cm/sec Lat Peak E' Roberto: 12.7 cm/sec Med Peak E' Roberto: 8.1 cm/sec MV A max roberto: 73.4 cm/sec E/E' lat: 6.7 E/E' med: 10.5 MV E/A: 1.2 Ao V2 max: 135.9 cm/sec LV V1 max: 126.5 cm/sec PA V2 max: 100.9 cm/sec Ao max P.4 mmHg LV V1 max P.4 mmHg Ao V2 mean: 93.9 cm/sec Ao mean P.9 mmHg Ao V2 VTI: 26.7 cm PI end-d roberto: 77.6 cm/sec TR max roberto: 210.1 cm/sec TR max P.7 mmHg ECHO/Echo Complete Interpretation Summary Normal LV size. Left ventricular systolic function is normal. The estimated ejection fraction is 60 %. Normal diastology for age. Ordering Physician: Zaki Fry Referring Physician: Zaki Fry Performed By: Karly Lofton, ANJELICA, RVT
== END 2021-04-09 23:59 | disposition short-term general hospital (02) ==
LOC: CVS 12:45
PROVIDERS: Referring Provider Internal Medicine Cardiovascular Disease; Visit Provider Internal Medicine Cardiovascular Disease
DX: I47.1 Supraventricular tachycardia (principal)
CPT/HCPCS: 93306

== ENCOUNTER → 2022-02-21 | Outpatient (CLI) | payer BC, SELFPAY ==
[2022-02-21 16:55] LABS: AST(SGOT) 28 U/L (15-37); Alanine Aminotransfer ALT/SGPT 72 U/L (16-61); Alkaline Phosphatase 90 U/L (45-117); Cholesterol 144 mg/dL (200); Globulin 3.3 g/dL (2.2-4.2); High Density Lipoprotein 29 mg/dL; Protein, Total 7.3 g/dL (6.4-8.2); Triglycerides 83 mg/dL; Very Low Density Lipoprotein 17 mg/dL (5-40)
== END | disposition home or self-care (01) ==
PROVIDERS: Referring Provider Physician Assistant Medical; Visit Provider Physician Assistant Medical
DX: E78.5 Hyperlipidemia, unspecified (principal); I47.1 Supraventricular tachycardia; I10 Essential (primary) hypertension
CPT/HCPCS: 36415; 80061; 80076

== ENCOUNTER 2022-06-30 17:40 | Emergency (ER) | payer BC, SELFPAY ==
[2022-06-30 17:41] VITALS: BP 110/94; PULSE 162; RESP 14; TEMP 36.1; O2SAT 97; BMI 33.3
--- NOTE | 2022-06-30 17:53 | EKG12_ITS ---
Test Reason : HIGH HR Blood Pressure : / mmHG Vent. Rate : 160 BPM Atrial Rate : 000 BPM P-R Int : 000 ms QRS Dur : 098 ms QT Int : 304 ms P-R-T Axes : 000 071 026 degrees QTc Int : 496 ms Supraventricular tachycardia Nonspecific ST abnormality Abnormal ECG Confirmed by LILIANA HUTSON, AUNG ([id number]), newspaper copy editor MICAH VASQUEZ ([id number]) on 07/04/2022 10:51:53 AM Referred By: Confirmed By:DEV FORD MD
[2022-06-30] MEDS: Adenosine 6 MG/2 ML Syringe IV (18:06)
--- NOTE | 2022-06-30 18:10 | EKG12_ITS ---
Test Reason : REPEAT Blood Pressure : / mmHG Vent. Rate : 103 BPM Atrial Rate : 103 BPM P-R Int : 116 ms QRS Dur : 096 ms QT Int : 358 ms P-R-T Axes : 035 063 029 degrees QTc Int : 468 ms Sinus tachycardia Low voltage QRS Borderline ECG Confirmed by LILIANA HUTSON, AUNG ([id number]), editor trade journal MICAH VASQUEZ ([id number]) on 07/04/2022 10:51:30 AM Referred By: Confirmed By:DEV FORD MD
--- NOTE | 2022-06-30 18:11 | EDS_ITS ---
HPI History of Present Illness Chief Complaint: Palpitations Detail of Chief Complaint: Fast rapid heart rate 1 hour prior to presentation Informant: patient and spouse/S.O. Onset/Context/Timing Onset: Hours (1) Context: Sudden Onset Timing: Continuous Quality: Fast heart rate Location: Chest Current Severity: Moderate Maximum Severity: Moderate Worsened by: Nothing Relieved by: Nothing Associated Symptoms Associated Symptoms: Lightheadedness Narrative Narrative: Patient is a 57-year-old male with history of hypertension, supraventricular tachycardia, hyperlipidemia who presents with fast heart rate with lightheadedness. He has seen Dr. Fry for this. Dr. Fry recommended ablation. Patient did not follow-up for ablation. Patient denies headache, visual, ocular auditory symptoms. Patient denies chest pressure or tightness. Patient denies nausea or vomiting. Patient denies history of PE or DVT. Patient does complain of swelling of her legs for the past 2 to 3 weeks. There is no discoloration or pain. Prior similar symptoms: Yes (2 to 3 years ago) Recent Illness/Hospitalization: No PFSH PFSH Medical History Atherosclerotic heart disease of [place] coronary artery without angina pectoris COVID-19 virus detected (01/27/21) Essential hypertension Hyperlipidemia Obesity Pneumonia due to 2019 novel coronavirus (02/09/21) Supraventricular tachycardia (02/09/21) Home Medications aspirin 81 mg tablet,delayed release (Adult Aspirin Regimen) 81 mg PO DAILY 08/11/21 [History Last Taken Unknown] hydrochlorothiazide 12.5 mg capsule 12.5 mg PO DAILY #90 caps 02/21/22 [Rx Last Taken Unknown] lisinopril 10 mg tablet 10 mg PO DAILY #90 tabs 02/21/22 [Rx Last Taken Unknown] atorvastatin 80 mg tablet 80 mg PO QHS #90 tabs 06/20/22 [Rx Last Taken Unknown] metoprolol succinate 25 mg tablet,extended release 24 hr 25 mg PO DAILY #90 TABLETS 06/20/22 [Rx Last Taken Unknown] Allergy/AdvReac Type Severity Reaction Status Date / Time No Known Allergies Allergy Verified 06/30/22 17:41 Surgical History History of left heart catheterization (06/12/13) Social History (Updated 06/30/22 @ 19:[address] Keyon Valle MD) household members: spouse Smoking Status: Former smoker Smokeless tobacco user: chewing tobacco substance use type: does not use ROS ROS ED Constitutional Constitutional ED: Denies chills, fever(s), subjective, sweats or weight loss Eyes Eyes: Denies blurry vision, change in vision or diplopia ENT ENT ED: Denies ear pain, rhinorrhea or sore throat Cardiovascular Cardiovascular: Reports palpitations and racing heartbeat; Denies chest pain, orthopnea or paroxysmal nocturnal dyspnea Respiratory/Chest Respiratory/Chest: Reports dyspnea; Denies cough, dyspnea on exertion, orthopnea or paroxysmal nocturnal dyspnea Gastrointestinal Gastrointestinal: Denies abdominal pain, nausea or vomiting Genitourinary Genitourinary ED: Denies dysuria or hematuria Musculoskeletal Musculoskeletal: Denies arthralgias, back pain, myalgias, neck pain or other Integumentary Denies abscess, Abrasions, rash or other Neurologic Neurologic: Denies headache(s), paresthesias, weakness or other Hematologic/Lymphatic Hematologic/Lymphatic: Reports systems reviewed and no addt'l complaints, except as documented EXAM Physical Exam Const Vital Signs: 06/30/22 17:41 06/30/22 18:12 06/30/22 18:19 Temperature 97 F L Temperature Source Temporal Pulse Rate 162 H 101 H Respiratory Rate 14 14 Respiratory Effort Normal Non-Labored Blood Pressure 110/94 H 142/87 H Blood Pressure Mean 99 105 Pulse Ox 97 96 Oxygen Delivery Method Room Air Room Air Positive well nourished, well developed and obese General Appearance ED: well developed and NAD; Negative for cyanotic, diaphoretic or pallor Nutritional Appearance: obese HEENT Reports moist mucous membranes HEENT Narrative: Head is atraumatic normocephalic. Ears normal. Nares patent. Posterior normal. Eyes PERRL and EOMs intact bilaterally Neck no lymphadenopathy, supple and no JVD Chest Wall inspection of chest normal and palpation of chest normal Resp normal respiratory effort and clear to auscultation bilaterally Cardio regular rhythm, S1 normal heart sound, S2 normal heart sound and no murmurs Rate: tachycardic GI normal to inspection, nondistended, normoactive bowel sounds, non-tender, non- distended and no masses; Negative for hepatosplenomegaly Back/Spine no CVA tenderness Extremity normal to inspection Extremity Narrative: Bilateral pitting edema of 2 to 4 mm. General Extremety ED: Yes edema General Extremity: edema Neuro oriented x3, CN's II-XII intact bilaterally and no sensory deficits noted Sensorium / Orientation: alert Psych mental status grossly normal Skin no rashes or lesions noted, no wounds and skin turgor normal General Skin Exam: elasticity normal; Negative for jaundice or pallor [facility] [place] Narr[place] Medical decision making narrative: Patient with fast irregular heartbeat. Monitor reveals a narrow complex tachycardia. Twelve-lead EKG reveals a intranodal reentry tachycardia with a rate of 160. QRS durations 98. QT durations 104 ms. [place] is normal. Patient was administered 6 mg of adenosine. Patient converted to a sinus rhythm. Repeat EKG revealed a sinus tachycardia with low voltage otherwise unremarkable. History & Record Review Discussion w/independent historian: EMS personnel and Significant other Additional record(s) reviewed:: Prior outpatient record, Prior ED visit (Patient was seen for SVT in 2019. He was referred to Dr. Melgar.) and No prior records Lab Data Attestation: I reviewed the patient's lab results. Lab results narrative: Electrolyte panel was unremarkable. Labs: Laboratory Results - last 24 hr 06/30/22 18:00 Sodium 137 Potassium 3.8 Chloride 106 Carbon Dioxide 23.0 Anion Gap 8 BUN 21 H Creatinine 1.14 Estim Creat Clear Calc 79.82 Est GFR (MDRD) Af Amer 85 Est GFR (MDRD) Non-Af 70 BUN/Creatinine Ratio 18.4 Glucose 124 H Calcium 9.0 EKG Initial EKG: Attestation: I personally reviewed and interpreted this EKG as follows: Interpretation: SVT (Documented under the [facility] portion of the medical record.) Prior: Changed Follow-up EKG: Attestation: I personally reviewed and interpreted this EKG as follows: Interpretation: Sinus Tachycardia (Rate is 103. There is low voltage. NE interval is 116 ms. Cures duration 96 ms. QT duration 3 and 58 ms. [place] is normal.) Treatment and Re-Evaluation :: Per documentation [facility] patient was treated with adenosine with conversion. We will have him follow-up with Dr. Fry to discuss ablation. Discharge Plan Triage Chief Complaint: Palpitations ED Provider: Keyon Valle Dx/Rx/DC Orders Clinical Impression: Atrioventricular raphael re-entry tachycardia, Obesity, Essential hypertension, Hyperlipidemia Instructions: ED Understanding Supraventricular Tachycardia (SVT) Prescriptions: No Action aspirin [Adult Aspirin Regimen] 81 mg tablet,delayed release (DR/EC) 81 mg PO DAILY hydrochlorothiazide 12.5 mg capsule 12.5 mg PO DAILY Qty: 90 3RF lisinopril 10 mg tablet 10 mg PO DAILY Qty: 90 3RF Label Comments: blood pressure atorvastatin 80 mg tablet 80 mg PO QHS Qty: 90 3RF Label Comments: cholesterol lowering metoprolol succinate 25 mg tablet extended release 24 hr 25 mg PO DAILY Qty: 90 3RF Label Comments: blood pressure Primary Care Provider: Care Physician,No Primary Referrals: Zaki Fry MD [Med Staff - Active Staff] - 3-5 Days Care Physician,No Primary [Primary Care Provider] - Disposition Disposition: Home, Self Care
[2022-06-30 18:12] VITALS: BP 142/87; PULSE 101; RESP 14; O2SAT 96
--- NOTE | 2022-06-30 18:14 | NURSING ---
1806 6mg adenosine given for hr 166. dr. loyola at bedside. hr down to 87 then. cps called for repeat ekg. labs down for testing. no needs at this time
[2022-06-30 18:20] LABS: Anion Gap 8 (5-15); BUN 21 mg/dL (7-18); BUN/Creat Ratio 18.4 RATIO (10-20); Chloride 106 mmol/L (98-107); Creatinine, Serum 1.14 mg/dL (0.70-1.30); EST Glomerular Filtration Rate 70 mL/min (>60); Est Glom Filt Rate - Afr Amer 85 mL/min (>60); Estimated Creatinine Clearance 79.82 ml/min; Glucose 124 mg/dL (74-106); Potassium 3.8 mmol/L (3.5-5.1); Sodium Level 137 mmol/L (136-145)
[2022-06-30 19:53] VITALS: BP 133/81; PULSE 86; RESP 20; O2SAT 96
== END 2022-06-30 19:54 | disposition home or self-care (01) ==
PROVIDERS: Emergency Provider Emergency Medicine; Visit Provider Emergency Medicine
DX: I47.1 Supraventricular tachycardia (principal); I25.10 Atherosclerotic heart disease of native coronary artery without angina pectoris; E78.5 Hyperlipidemia, unspecified; E66.9 Obesity, unspecified; I10 Essential (primary) hypertension; Z87.891 Personal history of nicotine dependence; Z79.82 Long term (current) use of aspirin; Z79.899 Other long term (current) drug therapy
CPT/HCPCS: 80048; 93005; 99284; J7030; A4216; J0153

== ENCOUNTER 2022-08-14 14:09 | Emergency (ER) | payer BC, SELFPAY ==
[2022-08-14 14:10] VITALS: BP 136/82; PULSE 89; RESP 18; TEMP 36.8; O2SAT 97; BMI 33.4
--- NOTE | 2022-08-14 14:25 | EDS_ITS ---
HPI History of Present Illness Chief Complaint: Palpitations [facility] Medical History Atherosclerotic heart disease of [place] coronary artery without angina pectoris COVID-19 virus detected (01/27/21) Essential hypertension Hyperlipidemia Obesity Pneumonia due to 2019 novel coronavirus (02/09/21) Supraventricular tachycardia (02/09/21) Home Medications aspirin 81 mg tablet,delayed release (Adult Aspirin Regimen) 81 mg PO DAILY 08/11/21 [History Last Taken Unknown] atorvastatin 80 mg tablet 80 mg PO QHS #90 tabs 06/20/22 [Rx Last Taken Unknown] metoprolol succinate 25 mg tablet,extended release 24 hr 25 mg PO DAILY #90 TABLETS 06/20/22 [Rx Last Taken Unknown] hydrochlorothiazide 12.5 mg capsule 12.5 mg PO DAILY #90 caps 07/19/22 [Rx Last Taken Unknown] lisinopril 10 mg tablet 10 mg PO DAILY #90 tabs 07/19/22 [Rx Last Taken Unknown] Allergy/AdvReac Type Severity Reaction Status Date / Time No Known Allergies Allergy Verified 08/14/22 14:12 Surgical History History of left heart catheterization (06/12/13) Social History (Updated 06/30/22 @ 19:[address] Keyon Valle MD) household members: spouse Smoking Status: Former smoker Smokeless tobacco user: chewing tobacco substance use type: does not use EXAM Physical Exam Const Vital Signs: 08/14/22 14:10 08/14/22 14:22 08/14/22 15:14 Temperature 98.3 F Temperature Source Temporal Pulse Rate 89 Respiratory Rate 18 Respiratory Pattern Normal Blood Pressure 136/82 H Blood Pressure Mean 100 Pulse Ox 97 Oxygen Delivery Method Room Air Room Air MDM MDM MDM Narrative Medical decision making narrative: HISTORY OF PRESENT ILLNESS: 57-year-old male here for palpitations. The patient states he developed intermittent palpitations with no associated shortness of breath or chest pains occurred approximately 1 hour prior to arrival. He states is similar to prior episodes when she was diagnosed with SVT. He states he was supposed to follow with Dr. Fry to schedule an ablation but never did. He states he will do that now that he had another episode. REVIEW OF SYSTEMS: Pertinent positives: Palpitations Pertinent negatives: Chest pain, shortness of breath, syncope PHYSICAL EXAM: Nursing triage notes reviewed, Vital signs reviewed Constitutional: please see mdm HENT: MMM Eyes: Pupils equal round and reactive to light, Extraocular muscles intact Neck: No stridor, no JVD, full neck ROM Lungs: Clear to auscultation, No wheezing or rales. No increased work of breathing, no conversational dyspnea, no accessory muscle use, no nasal flaring. No respiratory distress noted Heart: Regular rate and rhythm, No murmurs, No rubs and No gallops, 2+ distal pulses (radial, femoral, posterior tibial) in all extremities Abdomen: Soft, there is no tenderness, rigidity, rebound or guarding, no obvious peritoneal signs, no palpable pulsatile abdominal masses, no auscultated abdominal bruit : No CVAT Extremities: No edema Neuro: No focal neurological deficits, cranial nerves II through XII intact, 5/5 strength in all extremities. Intact sensation to light touch in all extremities, 2+ reflexes bilateral patella tendons. Normal gait. No ataxia. 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 No focal cardiopulmonary abnormalities noted I considered the following differential diagnosis: Arrhythmia, anemia, electrolyte abnormality myocardial ischemia. Patient's EKG showed no evidence of arrhythmia. Labs are unremarkable for signs of anemia, electrolyte abnormality, myocardial ischemia, thyroid dysfunction. No clear life-limiting etiology could be ascertained to the emergency department. The patient is appropriate for discharge home with close outpatient follow-up with Dr. Fry. Factors affecting care: History of SVT, hypertension, hyperlipidemia and CAD Social determinants of health: Former smoker, chewing tobacco use History obtained from others: The patient's Shared decision making: I will have a discussion with the patient and or visitors regarding risk/benefits of further testing or admission. They will be made aware of of the risk/benefits inherent in this decision they will be given the opportunity to voice understanding. Consults: None Lab Data Attestation: I reviewed the patient's lab results. Lab results narrative: EKG with normal sinus rhythm, normal axis, normal intervals, no obvious STEMI, no arrhythmia CBC without leukocytosis, severe anemia, no thrombocytopenia. BMP without evidence of significant electrolyte abnormalities, no anion gap, no acute kidney injury. Troponin is negative, no evidence of myocardial ischemia BNP within normal limits suggestive of no volume overload, increased ventricular stretch or transmural wall pressure TSH within normal limits Labs: Laboratory Results - last 24 hr 08/14/22 08/14/22 08/14/22 15:00 15:00 15:00 WBC 7.9 RBC 5.04 Hgb 14.5 Hct 44.7 MCV 88.7 MCH 28.8 MCHC 32.4 RDW Std Deviation 43.0 RDW Coeff of Luis Armando 13.2 Plt Count 227 MPV 10.2 Immature Gran % (Auto) 0.100 Neut % (Auto) 62.2 Lymph % (Auto) 26.1 Coleman % (Auto) 6.9 Eos % (Auto) 3.9 Baso % (Auto) 0.8 Absolute Neuts (auto) 4.9 Absolute Lymphs (auto) 2.05 Nucleated RBC % 0 Sodium 140 Potassium 3.6 Chloride 106 Carbon Dioxide 26.0 Anion Gap 8 BUN 19 H Creatinine 0.99 Estim Creat Clear Calc 91.92 Est GFR (MDRD) Af Amer 99 Est GFR (MDRD) Non-Af 82 BUN/Creatinine Ratio 19.1 Glucose 140 H Calcium 9.1 Troponin I High Sens 5 B-Natriuretic Peptide 42.8 TSH 08/14/22 15:00 WBC RBC Hgb Hct MCV MCH MCHC RDW Std Deviation RDW Coeff of Luis Armando Plt Count MPV Immature Gran % (Auto) Neut % (Auto) Lymph % (Auto) Coleman % (Auto) Eos % (Auto) Baso % (Auto) Absolute Neuts (auto) Absolute Lymphs (auto) Nucleated RBC % Sodium Potassium Chloride Carbon Dioxide Anion Gap BUN Creatinine Estim Creat Clear Calc Est GFR (MDRD) Af Amer Est GFR (MDRD) Non-Af BUN/Creatinine Ratio Glucose Calcium Troponin I High Sens B-Natriuretic Peptide TSH 1.15 Radiography Diagnostic Testing: Clinical Impression(s) from Imaging Studies Chest X-Ray 08/14/22 15:17 IMPRESSION: undefined Discharge Plan Triage Chief Complaint: Palpitations ED Provider: Ian Hernandez Dx/Rx/DC Orders Prescriptions: No Action aspirin [Adult Aspirin Regimen] 81 mg tablet,delayed release (DR/EC) 81 mg PO DAILY atorvastatin 80 mg tablet 80 mg PO QHS Qty: 90 3RF Label Comments: cholesterol lowering metoprolol succinate 25 mg tablet extended release 24 hr 25 mg PO DAILY Qty: 90 3RF Label Comments: blood pressure hydrochlorothiazide 12.5 mg capsule 12.5 mg PO DAILY Qty: 90 3RF lisinopril 10 mg tablet 10 mg PO DAILY Qty: 90 3RF Label Comments: blood pressure Primary Care Provider: Care Physician,No Primary Referrals: Care Physician,No Primary [Primary Care Provider] -
--- NOTE | 2022-08-14 15:03 | EKG12_ITS ---
Test Reason : PALPS Blood Pressure : / mmHG Vent. Rate : 084 BPM Atrial Rate : 084 BPM P-R Int : 134 ms QRS Dur : 096 ms QT Int : 374 ms P-R-T Axes : 034 041 022 degrees QTc Int : 441 ms Normal sinus rhythm with sinus arrhythmia Possible Inferior infarct , age undetermined Abnormal ECG Confirmed by RAJAN HUTSON, PURNIMA ([id number]), publication editor KYAW MARTINEZ ([id number]) on 08/16/2022 10:47:25 AM Referred By: PATRICIA Confirmed By:PURNIMA TOLENTINO MD
[2022-08-14] MEDS: 0.9% Normal Saline 1,000 ML 1000 ML IV (15:15)
--- NOTE | 2022-08-14 15:17 | RAD_ITS ---
[employer]Scriptor Unformatted Report Format: Options: n 2f 2i act cap dr ackerman wm wcta sl lj Gender: Male Age: 57 years Exam: XR Chest 1 View Comparison: 02.09.21 History: chest pain Radiation: CTDIvol = [ ] mGy, DLP = [ ] mGy-cm Contrast: Electronically Signed: Jorge Diaz MD at 15:42 EDT , RAD/Chest 1 View (Portable) IMPRESSION: undefined
[2022-08-14 15:19] LABS: Absolute Lymphocyte Count 2.05 X10^3/uL (0.83-4.51); Absolute Neutrophil Count 4.9 X10^3/uL (2.0-7.7); Basophil# 0.06 X10^3/uL; Basophil% 0.8 % (0-1); Eosinophil# 0.31 X10^3/uL; Eosinophils% 3.9 % (0-5); Hematocrit 44.7 % (40-54); Hemoglobin 14.5 g/dL (13.0-16.5); Lymphocyte # 2.05 X10^3/ul (0.83-4.51); Lymphocyte % 26.1 % (19-41); Mean Corp Hgb Conc 32.4 g/dL (32-36); Mean Corpuscular Hgb 28.8 pg (27.0-32.0); Mean Corpuscular Volume 88.7 fL (80-94); Mean Platelet Vol. 10.2 fl (6.2-12.0); Monocyte# 0.54 X10^3/uL; Monocyte% 6.9 % (0-10); NRBC Flagged by Analyzer 0 % (0-5); Neutrophil # 4.89 X10^3/uL (2.7-7.7); Neutrophil % 62.2 % (47-70); Platelet Count 227 K/mm3 (150-450); RBC Distribution Width CV 13.2 % (11.6-14.6); Red Blood Count 5.04 M/mm3 (4.6-6.2); White Blood Count 7.9 K/mm3 (4.4-11.0)
[2022-08-14 15:39] LABS: Anion Gap 8 (5-15); BUN 19 mg/dL (7-18); BUN/Creat Ratio 19.1 RATIO (10-20); Calcium,Total 9.1 mg/dL (8.5-10.1); Chloride 106 mmol/L (98-107); Creatinine, Serum 0.99 mg/dL (0.70-1.30); EST Glomerular Filtration Rate 82 mL/min (>60); Est Glom Filt Rate - Afr Amer 99 mL/min (>60); Estimated Creatinine Clearance 91.92 ml/min; Glucose 140 mg/dL (74-106); Potassium 3.6 mmol/L (3.5-5.1); Sodium Level 140 mmol/L (136-145); Troponin-I HS 5 pg/mL (3.0-78.0)
[2022-08-14 16:02] LABS: BNP,B-Type NATRIURETIC PEPTIDE 42.8 pg/mL (0-100)
[2022-08-14 16:29] LABS: Thyroid Stim Hormone (TSH) 1.15 uIU/mL (0.358-3.74)
[2022-08-14 16:43] VITALS: BP 156/88; PULSE 83; RESP 16; O2SAT 98
== END 2022-08-14 16:50 | disposition home or self-care (01) ==
PROVIDERS: Emergency Provider Emergency Medicine; Visit Provider Emergency Medicine
DX: R00.2 Palpitations (principal); I25.10 Atherosclerotic heart disease of native coronary artery without angina pectoris; E78.5 Hyperlipidemia, unspecified; I10 Essential (primary) hypertension; Z79.82 Long term (current) use of aspirin; Z79.899 Other long term (current) drug therapy; F17.220 Nicotine dependence, chewing tobacco, uncomplicated
CPT/HCPCS: 71045; 80048; 83880; 84443; 84484; 85025; 93005; 99283; J7030

== ENCOUNTER → 2022-10-24 | Outpatient (CLI) | payer BC, SELFPAY ==
--- NOTE | 2022-10-24 09:15 | STRESSREP ---
Stress Test Report Exercise myocardial perfusion stress test. 57-year-old man with a history of supraventricular tachycardia Stress protocol: Resting EKG demonstrates normal sinus rhythm with a rate of 57 bpm resting blood pressure is 128/82 mmHg. The patient exercised according to the regular John protocol for a total duration of 6 minutes attaining a maximum heart rate of 139 bpm which was 85% of maximum predicted heart rate; the maximum workload was 7 metabolic equivalents. At rest there were no ST or T wave changes noted to suggest ischemia and at peak exercise upsloping ST changes only were noted which did not meet the criteria for ischemia. No clinical angina was noted the test was terminated due to the target heart rate being achieved/fatigue. The peak blood pressure was 202/68 mmHg. this was a hypertensive response to exercise. [place]-pressure product was [address]. Myocardial perfusion protocol. 14.8 mCi of technetium 99m sestamibi was injected at rest. The patient exercised according to regular John protocol for total duration of 6 minutes and at peak exercise 45 mCi of technetium 99m sestamibi was injected stress images were obtained stress and rest images were reconstructed in comparing the short axis vertical long and horizontal long axis. Gated images were also obtained. Perfusion SPECT analysis: Review of the stress images demonstrate normal uptake of tracer noted in all areas of the myocardium. The resting images similarly demonstrate normal uptake of tracer noted in all areas of the myocardium. No areas of reversibility are noted to suggest ischemia no previous infarct was noted. Gated SPECT analysis: The gated ejection fraction is 64%. Conclusion: Normal exercise myocardial perfusion stress test at a moderate workload Preserved ejection fraction.
== END | disposition home or self-care (01) ==
PROVIDERS: PCP Surgery; Referring Provider Nurse Practitioner Family; Visit Provider Nurse Practitioner Family
DX: I47.1 Supraventricular tachycardia (principal); I10 Essential (primary) hypertension; E78.5 Hyperlipidemia, unspecified
CPT/HCPCS: 78452; 93017; A9500; A4216

== ENCOUNTER → 2023-05-05 | Outpatient (CLI) | payer BC, SELFPAY ==
[2022-11-17 07:27] LABS: Absolute Lymphocyte Count 2.17 X10^3/uL (0.83-4.51); Basophil# 0.08 X10^3/uL; Basophil% 1.1 % (0-1); Eosinophil# 0.36 X10^3/uL; Hematocrit 46.3 % (40-54); Hemoglobin 15.3 g/dL (13.0-16.5); Lymphocyte # 2.17 X10^3/ul (0.83-4.51); Lymphocyte % 30.1 % (19-41); Mean Corpuscular Hgb 29.1 pg (27.0-32.0); Mean Platelet Vol. 9.6 fl (6.2-12.0); Monocyte# 0.61 X10^3/uL; Monocyte% 8.5 % (0-10); NRBC Flagged by Analyzer 0 % (0-5); Neutrophil # 3.96 X10^3/uL (2.7-7.7); Neutrophil % 54.9 % (47-70); Platelet Count 263 K/mm3 (150-450); RBC Distribution Width SD 42.2 fl (35.1-43.9); Red Blood Count 5.26 M/mm3 (4.6-6.2); White Blood Count 7.2 K/mm3 (4.4-11.0)
[2022-11-17 07:58] LABS: Anion Gap 6 (5-15); BUN 22 mg/dL (7-18); BUN/Creat Ratio 21.8 RATIO (10-20); Calcium,Total 8.9 mg/dL (8.5-10.1); Chloride 104 mmol/L (98-107); Creatinine, Serum 1.01 mg/dL (0.70-1.30); EST Glomerular Filtration Rate 81 mL/min (>60); Est Glom Filt Rate - Afr Amer 97 mL/min (>60); Glucose 126 mg/dL (74-106); Sodium Level 138 mmol/L (136-145)
[2022-11-17 08:06] LABS: AST(SGOT) 24 U/L (15-37); Alanine Aminotransfer ALT/SGPT 72 U/L (16-61); Albumin, Serum 3.8 g/dL (3.2-5.0); Alkaline Phosphatase 85 U/L (45-117); Bilirubin, Direct 0.14 mg/dL (0.00-0.30); Cholesterol 146 mg/dL (200); Globulin 3.4 g/dL (2.2-4.2); High Density Lipoprotein 32 mg/dL; Protein, Total 7.2 g/dL (6.4-8.2); Triglycerides 103 mg/dL; Very Low Density Lipoprotein 21 mg/dL (5-40)
[2023-01-13 07:07] LABS: Absolute Lymphocyte Count 2.34 X10^3/uL (0.83-4.51); Absolute Neutrophil Count 3.6 X10^3/uL (2.0-7.7); Basophil# 0.08 X10^3/uL; Basophil% 1.1 % (0-1); Eosinophil# 0.45 X10^3/uL; Eosinophils% 6.4 % (0-5); Hematocrit 44.2 % (40-54); Hemoglobin 14.2 g/dL (13.0-16.5); Lymphocyte # 2.34 X10^3/ul (0.83-4.51); Lymphocyte % 33.3 % (19-41); Mean Corp Hgb Conc 32.1 g/dL (32-36); Mean Corpuscular Hgb 28.6 pg (27.0-32.0); Mean Corpuscular Volume 89.1 fL (80-94); Mean Platelet Vol. 9.6 fl (6.2-12.0); Monocyte% 7.1 % (0-10); NRBC Flagged by Analyzer 0 % (0-5); Neutrophil # 3.63 X10^3/uL (2.7-7.7); Neutrophil % 51.7 % (47-70); Platelet Count 258 K/mm3 (150-450); RBC Distribution Width SD 42.5 fl (35.1-43.9); Red Blood Count 4.96 M/mm3 (4.6-6.2)
[2023-01-13 08:01] LABS: Anion Gap 4 (5-15); BUN 18 mg/dL (7-18); BUN/Creat Ratio 17.5 RATIO (10-20); Calcium,Total 8.7 mg/dL (8.5-10.1); Chloride 108 mmol/L (98-107); Creatinine, Serum 1.03 mg/dL (0.70-1.30); EST Glomerular Filtration Rate 79 mL/min (>60); Est Glom Filt Rate - Afr Amer 95 mL/min (>60); Glucose 120 mg/dL (74-106); Potassium 4.2 mmol/L (3.5-5.1); Sodium Level 142 mmol/L (136-145)
== END | disposition home or self-care (01) ==
LOC: CLSP 08:26 → PAT 13:32
PROVIDERS: Nurse Practitioner Family; Physician Assistant Medical; Referring Provider Internal Medicine Cardiovascular Disease; Visit Provider Internal Medicine Cardiovascular Disease
DX: R00.2 Palpitations (principal); I47.10 Supraventricular tachycardia, unspecified; Z01.818 Encounter for other preprocedural examination; I25.10 Atherosclerotic heart disease of native coronary artery without angina pectoris; R79.89 Other specified abnormal findings of blood chemistry; E66.9 Obesity, unspecified; E78.5 Hyperlipidemia, unspecified
CPT/HCPCS: 36415; 80048; 80061; 80076; 85025

== ENCOUNTER 2024-11-13 19:42 | Emergency (ER) | payer BC, SELFPAY ==
[2024-11-13 19:43] VITALS: BP 127/96; PULSE 167; RESP 18; TEMP 36.4; O2SAT 98; BMI 33.8
[2024-11-13 20:01] VITALS: BP 106/79; PULSE 160
--- NOTE | 2024-11-13 20:10 | ED.VIS.CHEST ---
HPI History of Present Illness Chief Complaint: Palpitations Narrative Narrative: Patient is a 59-year-old male presenting to the emergency department for palpitations. Patient has a past medical history of SVT, hyperlipidemia, obesity and hypertension. Patient has been to the ED multiple times for palpitations sometimes spontaneously converting sometimes requiring adenosine. States that he developed palpitations few hours ago. States before the palpitations started he was feeling fine, no complaints. He is on metoprolol at home. States he was supposed to have an ablation done but they canceled it multiple times. Denies chest pain, shortness of breath, nausea, vomiting, diaphoresis. Endorses some mild lightheadedness but no dizziness. [facility] Medical History Obesity Atherosclerotic heart disease of [place] coronary artery without angina pectoris Pneumonia due to 2019 novel coronavirus (02/09/21) Supraventricular tachycardia (02/09/21) COVID-19 virus detected (01/27/21) Hyperlipidemia Essential hypertension Home Medications ?Medication ?Instructions ?Recorded ?Last Taken ?Type aspirin 81 mg tablet,delayed 81 mg PO DAILY 08/11/21 11/13/24 History release (Adult Aspirin Regimen) losartan 50 mg tablet 50 mg PO DAILY #90 tabs 12/18/23 11/13/24 Rx atorvastatin 80 mg tablet 80 mg PO QHS #90 tabs 02/23/24 11/12/24 Rx hydrochlorothiazide 12.5 mg capsule 12.5 mg PO DAILY #90 caps 02/23/24 11/13/24 Rx metoprolol succinate 25 mg 25 mg PO DAILY #90 TABLETS 02/23/24 11/13/24 Rx tablet,extended release 24 hr Allergy/AdvReac Type Severity Reaction Status Date / Time lisinopril Allergy Unknown cough Verified 11/13/24 19:44 Family History Father CAD (coronary artery disease), Onset Age: 68 Grandfather CAD (coronary artery disease) Brother CAD (coronary artery disease), Onset Age: 69 Sister CAD (coronary artery disease), Onset Age: 75 Brother Heart valve disease Surgical History History of left heart catheterization (06/12/13) Social History household members: spouse Smoking Status: Never smoker Smokeless tobacco user: chewing tobacco substance use type: does not use ROS ROS ED ROS Narrative see HPI EXAM Physical Exam Narrative Exam Narrative: Vital signs: Reviewed General: Alert and oriented. No acute distress HEENT: Head is normocephalic and atraumatic, sinuses nontender, pupils equal round and reactive. Nares are patent. Oropharynx and throat exams normal. Neck: Supple without lymphadenopathy nontender Cardiovascular: Fairly regular tachycardia in the 160s to 170s no murmurs. No rubs or gallops. Normal S1 and S2 Respiratory: Clear to auscultation bilaterally. No wheezes, rales, rhonchi Abdominal: Soft and nontender. Normal bowel sounds. No guarding or rebound. Nonsurgical abdomen Extremities: No tenderness. No bruising. Normal range of motion. Normal sensation. Skin: No rash or redness. Neurological: Cranial nerves II through XII are grossly intact. Normal strength and sensation. Normal cerebellar function The rest of the physical exam is unremarkable Const Vital Signs: 11/13/24 19:43 11/13/24 20:01 11/13/24 20:02 Temperature 97.6 F L Temperature Source Temporal Pulse Rate 167 H 160 H Respiratory Rate 18 Respiratory Effort Normal Non-Labored Blood Pressure 127/96 H 106/79 Blood Pressure Mean 106 88 Pulse Ox 98 Oxygen Delivery Method Room Air 11/13/24 20:34 11/13/24 21:01 Temperature 97.9 F Temperature Source Pulse Rate 105 H 106 H Respiratory Rate 20 H Respiratory Effort Blood Pressure 162/94 H 139/93 H Blood Pressure Mean 116 108 Pulse Ox 95 Oxygen Delivery Method MDM MDM MDM Narrative Medical decision making narrative: Patient is a 59-year-old male presenting to emergency department for palpitations. Patient was seen and examined. Vitals are stable. Heart rate of 167 when he arrived. EKG shows a narrow complex tachycardia that appears regular. Looks to be SVT. Patient has no chest pain. He had no symptoms prior to the palpitations. Has a history of SVT. Modified Valsalva maneuver attempted with no change in heart rate. Patient was consented for chemical cardioversion with adenosine. Patient placed on pads. Respiratory therapy at bedside as well. 6 mg adenosine given. HR improved into the low 100s. repeat EKG ordered and shows sinus tachycardia with pvc. Patients symptoms resolved. No chest pain, shortness of breath, palpitations, lightheadedness. Encourage patient to continue take the metoprolol and to follow-up with Dr. Fry for the ablation to be done. Clinical impression 1. palpitations 2. SVT History & Record Review Discussion w/independent historian: Patient and Family Rhythm Strip Rhythm Strip: Sinus Tach Rate: 100 Ectopy: PVC(s) Discharge Plan Triage Chief Complaint: Palpitations ED Provider: Tami Vázquez Dx/Rx/DC Orders Clinical Impression: Supraventricular tachycardia Instructions: ED Understanding Supraventricular Tachycardia (SVT) Prescriptions: No Action aspirin [Adult Aspirin Regimen] 81 mg tablet,delayed release (DR/EC) 81 mg PO DAILY losartan 50 mg tablet 50 mg PO DAILY Qty: 90 3RF atorvastatin 80 mg tablet 80 mg PO QHS Qty: 90 3RF Patient Comments: cholesterol lowering metoprolol succinate 25 mg tablet extended release 24 hr 25 mg PO DAILY Qty: 90 3RF Patient Comments: blood pressure hydrochlorothiazide 12.5 mg capsule 12.5 mg PO DAILY Qty: 90 3RF Primary Care Provider: Care Physician,No Primary Referrals: Zaki Fry MD [Med Staff - Active Staff] - 1 Day Care Physician,No Primary [Primary Care Provider] - Activity Restrictions/Additional Instructions: Please follow-up with Dr. Fry as soon as possible for an ablation. Your evaluation in the Emergency Department did not reveal any acute reason for admission. However, I want to emphasize that you may be early in the course of a disease process or illness even if it is not present. For this reason you should follow-up within 24 hours for reevaluation with either your primary care physician or if necessary back here in the Emergency Department. You should return to the Emergency Department immediately if your symptoms worsen or new symptoms develop. Print Language: Maltese Disposition Disposition: Home, Self Care Discharge Date/Time: 11/13/24 21:02
[2024-11-13] MEDS: Adenosine 6 MG/2 ML Syringe IV (20:30)
[2024-11-13 20:34] VITALS: BP 162/94; PULSE 105
[2024-11-13 21:01] VITALS: BP 139/93; PULSE 106; RESP 20; TEMP 36.6; O2SAT 95
== END 2024-11-13 21:02 | disposition home or self-care (01) ==
PROVIDERS: Emergency Provider Student in an Organized Health Care Education/Training Program; Visit Provider Student in an Organized Health Care Education/Training Program
DX: I47.10 Supraventricular tachycardia, unspecified (principal); I25.10 Atherosclerotic heart disease of native coronary artery without angina pectoris; I10 Essential (primary) hypertension; E66.9 Obesity, unspecified; F17.220 Nicotine dependence, chewing tobacco, uncomplicated; Z68.33 Body mass index [BMI] 33.0-33.9, adult; Z79.82 Long term (current) use of aspirin; Z79.899 Other long term (current) drug therapy; Z86.16 Personal history of COVID-19
CPT/HCPCS: 93005; 99283; A4216; J0153

== ENCOUNTER → 2024-12-17 | Outpatient (CLI) | payer BC, SELFPAY ==
--- OUTSIDE RECORDS SUMMARY | 2024-12-17 05:57 | XMS RPT_ITS | CCD ---
Author Organization [facility] Care Team Providers Care Money Laundering Investigator Name Role Phone Ying Hendricks Y Unavailable Ying Hendricks Y Unavailable Lizzy WILLIAMSON MD, Frank A Primary Care Provider Valentine vailable Care Physician, No Primary Primary Care Provider Unavailable Care Physician, No Primary Referring Provider Un available YRIS Guevara Attending Provider Care Physician, No Primary Primary Care Provider Unavailable Care Physician, No Primary Referring Provider Un available Dr. Zaki Fry Attending Provider Lizzy WILLIAMSON MD, Frank A Primary Care Provider Valentine vailable Care Physician, No Primary Primary Care Provider Unavailable Kathie HUTSON, Dr. Garrett Emergency Provider Unavailab miri Vázquez MD, Dr. Garrett Attending Provider Unavailab le Care Physician, No Primary Referring Provider Un available Lenora Guevara Attending Provider [phone] Care Physician, No Primary Referring Unava ilable Care Physician, No Primary Primary Care Unava ilable Lenora Guevara Attending Unavail able Care Physician, No Primary Primary Care Unava ilable Lui Lofton NP Attending Unavailable Care Physician, No Primary Referring Unava ilable Care Physician, No Primary Primary Care Unava ilable Tami Vázquez Attending Unavailable Care Physician, No Primary Primary Care Unava ilable Jarrod Crain Attending Unavailable Harriet HUTSON, Dr. Connell Attending Provider Allergies Allergy Classification Reported Allergen(s) Allergy Type Date of Onset Reaction(s) Facility (3 sources) Lisinopril Drug Allergy 11-13-2024 cough [facility] (1 source) Lisinopril Drug Allergy 11-21-2024 [facility] Repository Medications Current Medications Medication Drug Class(es) Dates Sig (Normalized) Sig (Original) aspirin 81 mg delayed release oral tablet (18 sources) Platelet Aggregation Inhibitor, Nonsteroidal Anti-inflammatory Drug Start: 08-11-2021 take 1 tablet by mouth once daily Aspirin (Adult Aspirin Regimen) 81 mg tablet,delayed release (DR/EC) Active 81 mg PO DAILY August 11, 2021 12:00am Start: 09-23-2019 End: 03-24-2021 take 1 tablet by mouth once daily Aspirin 81 mg tablet,delayed release (DR/EC) Discontinued 81 mg PO DAILY January 27, 2021 12:00am March 24, 2021 2:57pm Start: 09-11-2013 take 1 tablet by carlitos th once daily ASPIRIN 81 MG TABS One tablet by mouth daily ASPIRIN [id number] Zaki Fry MD Start: 09-11-2013 take 1 tablet by carlitos th once daily ASPIRIN EC 81 MG TBEC One tablet by mouth daily ASPIRIN [id number] Shey Reardon RN Comment on above: Take 1 tablet by carlitos th once daily. Completed/Discontinued Medications Medication Drug Class(es) Dates Sig (Normalized) Sig (Original) atorvastatin 80 mg oral tablet (20 sources) HMG-CoA Reductase Inhibitor Start: 09-05-2013 take 1 tablet by mouth once daily LIPITOR 10 MG TABS One tablet by mouth daily ATORVASTATIN CALCIUM [id number] Brandy Sumner RN Start: 06-12-2013 End: 11-21-2024 take 1 tablet by mouth at bedtime Atorvastatin 80 mg tablet Discontinued 80 mg PO AT BEDTIME 90 3 February 23, 2024 9:38am November 21, 2024 3:15pm Start: 06-11-2013 End: 06-12-2013 take 1 tablet by mouth once daily Atorvastatin 10 MG tablet Discontinued 10 mg PO DAILY June 11, 2013 12:00am June 12, 2013 3:02pm Comment on above: Take 1 tablet by carlitos th once daily. hydroCHLOROthiazide 12.5 mg oral capsule (20 sources) Thiazide Diuretic Start: 2020 End: 2024 take 1 capsule by mouth once daily Hydrochlorothiazide 12.5 mg capsule Discontinued 12.5 mg PO DAILY 90 3 February 23, 2024 9:38am November 21, 2024 3:15pm Start: 09-05-2013 take 1 tablet by carlitos once daily HYDROCHLOROTHIAZIDE 25 MG TABS One tablet by mouth daily HYDROCHLOROTHIAZIDE [id number] Brandy Sumner RN Start: 09-05-2013 take 1 tablet by carlitos th once daily HYDROCHLOROTHIAZIDE 12.5 MG TABS One tablet by mouth daily HYDROCHLOROTHIAZIDE [id number] Zaki Fry MD Comment on above: Take 1 capsule by mo [facility] once daily. lisinopril 10 mg oral tablet (20 sources) Angiotensin Converting Enzyme Inhibitor Start: 4 End: 4 take 1 tablet by mouth once daily Lisinopril 10 mg tablet Discontinued 10 mg PO DAILY March 13, 2023 12:28pm December 18, 2023 3:50pm Comment on above: Take 1 tablet by carlitos once daily. 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; Translations: [Coronary arteriosclerosis] Onset: 06-25-2013 09-05-2013 Chronic Disorders of lipid metabolism (14 sources) Hyperlipidemia; Translations: [Hyperlipidemia, unspecified] Onset: 05-09-2012 09-05-2013 Chronic Essential hypertension (15 sources) Hypertensive disorder; Translations: [Benign essential hypertension] Onset: 12-12-2008 09-05-2013 Chronic Open wounds of extremities (2 sources) Laceration of left index finger; Translations: [Laceration without foreign body of left index finger without damage to nail, initial encounter] Episodic Other nutritional; endocrine; and metabolic disorders (2 sources) Body mass index (BMI) 31.0-31.9, adult; Translations: [Body mass index (BMI) 31.0-31.9, adult] Onset: 03-24-2014 03-24-2014 Chronic Other nutritional; endocrine; and metabolic disorders (2 sources) Obese class I; Translations: [Obesity, unspecified] Onset: 05-09-2012 07-17-2020 Chronic Other nutritional; endocrine; and metabolic disorders (6 sources) Obesity; Translations: [Obesity, unspecified] 06-30-2022 Chronic Other screening for suspected conditions (not mental disorders or infectious disease) (7 sources) Other specified abnormal findings of blood chemistry; Translations: [Elevated liver function tests] Onset: 02-09-2021 03-24-2021 Episodic Spondylosis; intervertebral disc disorders; other back problems (7 sources) Backache; Translations: [Dorsalgia, unspecified] 03-24-2021 Episodic Substance-related disorders (6 sources) Nicotine dependence; Translations: [Nicotine dependence, chewing tobacco, uncomplicated] 03-24-2021 Chronic Unclassified (1 source) Encounter for screening for malignant neoplasm of colon Unclassified (2 sources) Z12.11 - Encounter for screening for malignant neoplasm of colon Viral infection (18 sources) COVID-19; Translations: [Severe acute respiratory syndrome coronavirus 2 (SARS-CoV-2) detected] Onset: 01-27-2021 03-24-2021 Episodic Past or Other Problems Problem Classification Problem Date Documented Da te Episodic/Chronic Diabetes mellitus without complication (2 sources) Impaired fasting glycemia; Translations: [Impaired fasting glucose] Onset: 07-19-2020 07-19-2020 Episodic Nonspecific chest pain (4 sources) Precordial pain; Translations: [Precordial pain] Onset: 09-05-2013 Resolved: 10-20-2015 09-05-2013 Episodic Other aftercare (2 sources) Other snf (current) drug therapy; Translations: [Other dining room helper (current) drug therapy] Onset: 10-16-2014 10-16-2014 Episodic Other nutritional; endocrine; and metabolic disorders (4 sources) Body mass index (BMI) 29.0-29.9, adult; Translations: [Body mass index (BMI) 29.0-29.9, adult] Onset: 09-11-2013 Resolved: 10-20-2015 09-11-2013 Episodic Residual codes; unclassified (4 sources) Family history of ischemic heart disease and other diseases of the circulatory system; Translations: [Family history of ischemic heart disease and other diseases of the circulatory system] 09-05-2013 Episodic Residual codes; unclassified (2 sources) FH: Hypertension; Translations: [Family history of ischemic heart disease and other diseases of the circulatory system] 09-05-2013 Episodic Unclassified (4 sources) Long-term drug therapy; Translations: [Long-term (current) use of other medications] Onset: 09-27-2013 Resolved: 10-16-2014 10-16-2014 Results Test Name Value Interpretation Reference Range Facility Cardiology Visit Reporton Cardiology Visit Report [facility] [address] [place] [address] OFFICE VISIT Date of Service: 11/21/24 MR#: [id number] Acct: [id number] Name: SUPA ADLER Rep #: [id number] : 1965 Provider: YRIS Morillo Age/Sex: 59/M Location: [facility] [place] Status: Signed HPI HPI History of Present Illness Details: Supa Adler is 59-year-old man with a history of hypertension, hyperlipidemia, tobacco abuse, who underwent a cardiac catheterization in 2013. He had no significant coronary artery disease noted. In February 2021 he had an episode of narrow complex tachycardia with a heart rate of 170. He did spontaneously convert with adenosine. He did have a recent diagnosis of COVID-[address] of his chest to rule out PE but it did show mild bilateral pneumonia. Troponins were essentially negative. There were mild coronary calcifications noted. He presented to [facility] Emergency Department on 08/14/2022 with palpitations. His EKG showed normal sinus rhythm. His work-up was negative. It was recommended to proceed with ablation. On account of recurrent palpitations he was agreeable. This has however not been scheduled due to a variety of issues. His stress test in October 2022 was negative and showed hypertensive response to exercise. Pt was in the ER last week for SVT. He did convert with 6 mg of adenosine. He has not had any symptoms since then. Intake Vital Signs 11/13/24 19:43 11/21/24 09:25 11/21/24 15:32 Height 6 ft 1 in 6 ft 1 in Weight: 259 lb BMI 34.2 BP 139/92 H 128/84 H Blood Pressure Location Lt brachial Position Sitting Respiration 18 Pulse 76 Pulse Source Monitor Pulse Oximetry (%) 95 Intake Visit Reasons: S/P [facility] 11/13 Pot Annealer Required: No Is patient in pain?: No Allergies lisinopril Allergy (Unknown, Verified 11/21/24 14:43) cough Medications ???Medication ???Instructions ???Recorded ???Confirmed ???Type aspirin 81 mg tablet,delayed 81 mg PO DAILY 08/11/21 11/21/24 H istory release (Adult Aspirin Regimen) atorvastatin 80 mg tablet 80 mg PO QHS #90 tabs 11/21/24 Rx hydrochlorothiazide 12.5 mg capsule 12.5 mg PO DAILY #90 caps 11/2111/21/24 Rx losartan 50 mg tablet 50 mg PO DAILY #90 tabs 11/21/24 0 11/21/24 Rx metoprolol succinate 25 mg 25 mg PO DAILY #90 TABLETS 5 11/21/24 Rx tablet,extended release 24 hr Ejection fraction %: 60 Have you fallen in the past year?: No 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 Pneumonia due to 2019 novel coronavirus (02/09/21) Supraventricular tachycardia (02/09/21) COVID-19 virus detected (01/27/21) Hyperlipidemia Essential hypertension Surgical History History of left heart catheterization (06/12/13) Family History Father CAD (coronary artery disease), Onset Age: 68 Grandfather CAD (coronary artery disease) Brother CAD (coronary artery disease), Onset Age: 69 Sister CAD (coronary artery disease), Onset Age: 75 Brother Heart valve disease Social History household members: spouse Smoking Status: Never smoker Smokeless tobacco user: chewing tobacco substance use type: does not use ROS Const Const: Negative for fatigue, weakness, headache(s) or frequent falls Eyes Eyes: Negative for blurry vision ENT ENT: Negative for headache(s), dizziness or Nosebleed/epistaxis Cardio Chest Pain: No Palpitations: No Edema: Bilateral and None Muscle aches with walking: None Resp Respiratory: Positive for SOB with activity; Negative for SOB at rest or SOB orthopnea SOB lying down GI GI: Negative nausea, vomiting, heartburn, bright, red blood in stools or black,tarry stools : Negative for hematuria Neuro Neuro: Negative for dizziness, lightheadedness, near syncope, syncope, frequent falls, headache(s), weakness or blurry vision Endo Endo: Negative for fatigue Cardiology Exam Const Appearance: cooperative, healthy appearing, comfortable and no acute distress Nutritional Appearance: well nourished and obese Orientation: alert, awake and oriented x3 Head Head: normal to inspection Ears: hearing grossly normal bilaterally Nose: external nose normal Face and Sinus: face symmetric Mouth: moist mucous membranes Eyes General: appearance normal, both eyes and all related structures Eyelids: eyelids normal EOM: EOM intact bilaterally Neck Neck: normal visual inspection and no JVD Carotids: normal carotid upstroke Chest Chest i (more content not included)... Normal [facility] Emergency Department Summary on 11-13-2024 Emergency Department Summary [facility] Medical Records Department [address] [place] [address] Emergency Department Summary 11/13/24 MR#: [id number] Acct: [id number] Name: SUPA ADLER Rep #: [id number] : 1965 59 From: Tami Vázquez MD PCP: Care Physician,No Primary Status:DEP ER Location: ED HPI History of Present Illness Chief Complaint: Palpitations Narrative Narrative: Patient is a 59-year-old male presenting to the emergency department for palpitations. Patient has a past medical history of SVT, hyperlipidemia, obesity and hypertension. Patient has been to the ED multiple times for palpitations sometimes spontaneously converting sometimes requiring adenosine. States that he developed palpitations few hours ago. States before the palpitations started he was feeling fine, no complaints. He is on metoprolol at home. States he was supposed to have an ablation done but they canceled it multiple times. Denies chest pain, shortness of breath, nausea, vomiting, diaphoresis. Endorses some mild lightheadedness but no dizziness. 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 Pneumonia due to 2019 novel coronavirus (02/09/21) Supraventricular tachycardia (02/09/21) COVID-19 virus detected (01/27/21) Hyperlipidemia Essential hypertension Home Medications ???Medication ???Instructions ???Recorded ???Last Taken ???Type aspirin 81 mg tablet,delayed 81 mg PO DAILY 08/11/21 11/13/24 H istory release (Adult Aspirin Regimen) losartan 50 mg tablet 50 mg PO DAILY #90 tabs 12/18/23 0 11/13/24 Rx atorvastatin 80 mg tablet 80 mg PO QHS #90 tabs 02/23/2403/27 Rx hydrochlorothiazide 12.5 mg capsule 12.5 mg PO DAILY #90 caps 02/2211/13/24 Rx metoprolol succinate 25 mg 25 mg PO DAILY #90 TABLETS 4 11/13/24 Rx tablet,extended release 24 hr Allergy/AdvReac Type Severity Reaction Status Date / Time lisinopril Allergy Unknown cough Verified 11/13/24 19:44 Family History Father CAD (coronary artery disease), Onset Age: 68 Grandfather CAD (coronary artery disease) Brother CAD (coronary artery disease), Onset Age: 69 Sister CAD (coronary artery disease), Onset Age: 75 Brother Heart valve disease Surgical History History of left heart catheterization (06/12/13) Social History household members: spouse Smoking Status: Never smoker Smokeless tobacco user: chewing tobacco substance use type: does not use ROS ROS ED ROS Narrative see HPI EXAM Physical Exam Narrative Exam Narrative: Vital signs: Reviewed General: Alert and oriented. No acute distress HEENT: Head is normocephalic and atraumatic, sinuses nontender, pupils equal round and reactive. Nares are patent. Oropharynx and throat exams normal. Neck: Supple without lymphadenopathy nontender Cardiovascular: Fairly regular tachycardia in the 160s to 170s no murmurs. No rubs or gallops. Normal S1 and S2 Respiratory: Clear to auscultation bilaterally. No wheezes, rales, rhonchi Abdominal: Soft and nontender. Normal bowel sounds. No guarding or rebound. Nonsurgical abdomen Extremities: No tenderness. No bruising. Normal range of motion. Normal sensation. Skin: No rash or redness. Neurological: Cranial nerves II through XII are grossly intact. Normal strength and sensation. Normal cerebellar function The rest of the physical exam is unremarkable Const Vital Signs: 11/13/24 19:43 11/13/24 20:01 11/13/24 20:02 Temperature 97.6 F L Temperature Source Temporal Pulse Rate 167 H 160 H Respiratory Rate 18 Respiratory Effort Normal Non-Labored Blood Pressure 127/96 H 106/79 Blood Pressure Mean 106 88 Pulse Ox 98 Oxygen Delivery Method Room Air 11/13/24 20:34 11/13/24 21:01 Temperature 97.9 F Temperature Source Pulse Rate 105 H 106 H Respiratory Rate 20 H Respiratory Effort Blood Pressure 162/94 H 139/93 H Blood Pressure Mean 116 108 Pulse Ox 95 Oxygen Delivery Method MDM MDM MDM Narrative Medical decision making narrative: Patient is a 59-year-old male presenting to emergency department for palpitations. Patient was seen and examined. Vitals are stable. Heart rate of 167 when he arrived. EKG shows a narrow complex tachycardia that appears regular. Looks to be SVT. Patient has no chest pain. He had no symptoms prior to the palpitations. Has a history of SVT. Modified Valsalva maneuver attempted with no change in heart rate. Patient was consented for chemical cardioversion with adenosine. Patient placed on pads. Respiratory (more content not included)... Normal [facility] Cardiology Visit Reporton Cardiology Visit Report [facility] [address] [place] [address] OFFICE VISIT Date of Service: 12/18/23 MR#: [id number] Acct: [id number] Name: SUPA ADLER Rep #: [id number] : 1965 Provider: CECE pacheco Age/Sex: 58/M Location: [facility] [place] Status: Signed HPI HPI History of Present Illness Details: Supa Adler is 58-year-old man with a history of hypertension, hyperlipidemia, tobacco abuse, who underwent a cardiac catheterization in 2013. He had no significant coronary artery disease noted. In February 2021 he had an episode of narrow complex tachycardia with a heart rate of 170. He did spontaneously convert with adenosine. He did have a recent diagnosis of COVID-[address] of his chest to rule out PE but it did show mild bilateral pneumonia. Troponins were essentially negative. There were mild coronary calcifications noted. He presented to [facility] Emergency Department on 08/14/2022 with palpitations. His EKG showed normal sinus rhythm. His work-up was negative. It was recommended to proceed with ablation. On account of recurrent palpitations he was agreeable. This has however not been scheduled due to a variety of issues. His stress test in October 2022 was negative and showed hypertensive response to exercise. He denies chest, arm, jaw, or neck discomfort. He acknowledges occasional palpitations that he describes as fast when lying down. This was short lasting and resolved on its own. He denies bilateral lower extremity edema, but states right foot edema. He denies claudication. He states shortness of breath with increased exertion, shortness of breath at rest, orthopnea, or PND. He states chronic cough. He denies significant, sudden weight gain. He denies lightheadedness, dizziness, near-syncope, or syncope. He denies blood in urine, blood in stool, or epistaxis. He denies fever with chills. He denies myalgia. He states fatigue. His exercise level has remained stable. Intake Vital Signs 04/20/23 15:16 12/18/23 15:19 12/18/23 15:24 Height 6 ft 1 in 6 ft 1 in 6 ft 1 in Weight: 248 lb 258 lb BMI 32.7 34.0 BP 138/78 H 141/78 H Blood Pressure Location Lt brachial Lt brachial Position Sitting Sitting Respiration 16 16 Pulse 74 73 Pulse Source Monitor NIBP Intake Visit Reasons: 7 m fu Pot Annealer Required: No Is patient in pain?: No Allergies lisinopril Allergy (Unknown, Verified 12/18/23 15:24) cough Medications ???Medication ???Instructions ???Recorded ???Confirmed ???Type aspirin 81 mg tablet,delayed 81 mg PO DAILY 08/11/21 12/18/23 History release (Adult Aspirin Regimen) atorvastatin 80 mg tablet 80 mg PO QHS #90 tabs 03/13/23 12/18/23 Rx hydrochlorothiazide 12.5 mg capsule 12.5 mg PO DAILY #90 caps 03/13/23 12/18/23 Rx metoprolol succinate 25 mg 25 mg PO DAILY #90 TABLETS 03/13/23 12/18/23 Rx tablet,extended release 24 hr losartan 50 mg tablet 50 mg PO DAILY #90 tabs 12/18/23 12/18/23 Rx Ejection fraction %: 60 Have you fallen in the past year?: No Nurse's Note: Wants to switch to something other than lisinopril due to cough. 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 Pneumonia due to 2019 novel coronavirus (02/09/21) Supraventricular tachycardia (02/09/21) COVID-19 virus detected (01/27/21) Hyperlipidemia Essential hypertension Surgical History History of left heart catheterization (06/12/13) Family History Father CAD (coronary artery disease), Onset Age: 68 Grandfather CAD (coronary artery disease) Brother CAD (coronary artery disease), Onset Age: 69 Sister CAD (coronary artery disease), Onset Age: 75 Brother Heart valve disease Social History household members: spouse Smoking Status: Former smoker Smokeless tobacco user: chewing tobacco substance use type: does not use ROS Const Const: Positive for fatigue and difficulty sleeping; Negative for weakness Eyes Eyes: Negative for change in vision ENT ENT: Negative for dizziness, Nosebleed/epistaxis or balance problems Cardio Chest Pain: No Palpitations: Yes (Occasionally when first laying down) feels like its: fast Edema: Right (Right foot swelling) Muscle aches with walking: None Resp Respiratory: Positive for SOB with activity (Only with increased exertion) and Cough; Negative for SOB at rest, SOB orthopnea SOB lying down or paroxysmal nocturnal dyspnea GI GI: Negative nausea, heartburn or black,tarry stools : Negative for hematuria Musc Musc: Negative for muscle aches/ myalgia, muscle weakness, joint pain or balance pro (more content not included)... Normal [facility] Absolute lymphocyte countOrd ered By: Lui Lofton on 01-13-2023 Lymphocytes Auto (Unsp spec) [#/Vol] 2.34 10*3/uL 0.83-4.51 [facility] Basophil percentageOrdered B y: Lui Kirsty on 01-13-2023 Basophils/100 WBC (Bld) 1.1 % 0-1 [facility] Chloride [Moles/Vol] 108 mmol/L 98-107 [facility] Eosinophils/100 WBC (Bld) 6.4 % 0-5 [facility] Glucose [Mass/Vol] 120 mg/dL 74-106 [facility] Comment on above: Fasting Glucose resu lt from 100 to 125 mg/dL suggests IMPAIRED HOMEOSTASIS per A.D.A. criteria. Neutrophils (Bld) [#/Vol] 3.6 10*3/uL 2.0-7.7 [facility] Neutrophils/100 WBC (Bld) 51.7 % 47-70 [facility] Potassium [Moles/Vol] 4.2 mmol/L 3.5-5.1 [facility] Sodium [Moles/Vol] 142 mmol/L 136-145 [facility] WBC (Bld) [#/Vol] 7.0 10*3/uL 4.4-11.0 [facility] Blood erythrocytes count (nu mber/volume)Ordered By: Lui Lofton on 01-13-2023 RBC (Bld) [#/Vol] 4.96 10*6/uL 4.6-6.2 [facility] Blood hemoglobin measurement (mass/volume)Ordered By: Lui Lofton on 01-13-2023 Hemoglobin (Bld) [Mass/Vol] 14.2 g/dL 13.0-16.5 [facility] Blood lymphocytes/100 leukoc ytesOrdered By: Lui Lofton on 01-13-2023 Lymphocytes/100 WBC (Bld) 33.3 % 19-41 [facility] Blood monocytes/100 leukocyt esOrdered By: Lui Lofton on 01-13-2023 Monocytes/100 WBC (Bld) 7.1 % 0-10 [facility] Blood platelet mean volumeOr dered By: Lui Lofton on 01-13-2023 Platelet mean volume (Bld) [Entitic vol] 9.6 fL 6.2-12.0 [facility] Determination of erythrocyte mean corpuscular volume (MCV)Ordered By: Lui Lofton on 01-13-2023 MCV (RBC) [Entitic vol] 89.1 fL 80-94 [facility] Hematocrit Auto (Bld) [Volum e fraction]Ordered By: Lui Lofton on 01-13-2023 Hematocrit (Bld) [Volume fraction] 44.2 % 40-54 [facility] - Chemistry and C hemistry - challengeOrdered By: Lui Lofton on 01-13-2023 CO2 [Moles/Vol] 30.0 mmol/L 21.0-32.0 [facility] Urea nitrogen/Creatinine [Mass ratio] 17.5 mg/mg 10-20 [facility] - Hematology and Cell countsOrdered By: Lui Lofton on 01-13-2023 Erythrocyte distribution width (RBC) [Entitic vol] 42.5 fL 35.1-43.9 [facility] Erythrocyte distribution width (RBC) [Ratio] 13.0 % 11.6-14.6 [facility] Immature granulocytes/100 WBC (Bld) 0.400 % 0.0-0.9 [facility] Comment on above: IG% - Immature Granu locytes (promyelocytes, myelocytes and metamyelocytes) > 1% indicates that a LEFT SHIFT is Present. MCH (RBC) [Entitic mass] 28.6 pg 27.0-32.0 [facility] Nucleated RBC/100 WBC (Bld) [Ratio] 0 % 0-5 [facility] MCHC Auto (RBC) [Mass/Vol]Or dered By: Lui Lofton on 01-13-2023 MCHC (RBC) [Mass/Vol] 32.1 g/dL 32-36 [facility] No Panel InformationOrdered By: Lui Lofton on 01-13-2023 Estimated GFR (MDRD) Amer 95 mL/min >60 [facility] Comment on above: GFR Calc Estimated GFR (MDRD) Non-Af Amer 79 mL/min >60 [facility] Comment on above: Non- GFR Calc Platelets bldOrdered By: Gabriel Lofton on 01-13-2023 Platelets (Bld) [#/Vol] 258 10*3/uL 150-450 [facility] Serum or plasma calcium igor urement (mass/volume)Ordered By: Lui Lofton on 01-13-2023 Calcium [Mass/Vol] 8.7 mg/dL 8.5-10.1 [facility] Serum or plasma creatinine m easurement (mass/volume)Ordered By: Lui Lofton on 01-13-2023 Creatinine [Mass/Vol] 1.03 mg/dL 0.70-1.30 [facility] Comment on above: The validity of the calculated GFR & GFRAA in patients over 70 years has not been determined. Clinical correlation is essential. Serum or plasma urea nitroge n measurement (mass/volume)Ordered By: Lui Lofton on 01-13-2023 Urea nitrogen [Mass/Vol] 18 mg/dL 7-18 [facility] Thin prep Papanicolaou smear with manual screeningOrdered By: Lui Lofton on 01-13-2023 Thin prep Papanicolaou smear with manual screening 4 5-15 [facility] Basophil percentageOrdered B y: Lenora Lee on 11-17-2022 Bilirubin [Mass/Vol] 0.70 mg/dL 0.20-1.00 [facility] Comment on above: For patients on eltr ombopag therapy, use of Dimension [place] TBIL is not recommended. Cholesterol [Mass/Vol] 146 mg/dL <200 [facility] Comment on above: <200 mg/dL Desirable 200-240 mg/dL Borderline >240 mg/dL High Risk Protein [Mass/Vol] 7.2 g/dL 6.4-8.2 [facility] Triglyceride [Mass/Vol] 103 mg/dL <199 [facility] Comment on above: The drugs N-Acetylcy steine and Metamizole may falsely depress this assay.Serum Triglycerides Reference Interval Normal <150 mg/dL Borderline high 150 - 199 mg/dL High 200 - 499 mg/dL Very High > or = 500 mg/dL Direct bilirubinOrdered By: Lenora Lee on 11-17-2022 Bilirubin.direct [Mass/Vol] 0.14 mg/dL 0.00-0.30 [facility] - Chemistry and C hemistry - challengeOrdered By: Lenora Lee on 11-17-2022 ALP [Catalytic activity/Vol] 85 U/L 45-117 [facility] ALT [Catalytic activity/Vol] 72 U/L 16-61 [facility] Globulin (S) [Mass/Vol] 3.4 g/dL 2.2-4.2 [facility] Serum or plasma albumin igor urement (mass/volume)Ordered By: Lenora eLe on 11-17-2022 Albumin [Mass/Vol] 3.8 g/dL 3.2-5.0 [facility] Serum or plasma cholesterol in HDL measurement (mass/volume)Ordered By: Lenora Lee on 11-17-2022 Cholesterol in HDL [Mass/Vol] 32 mg/dL >40 [facility] Comment on above: The drugs N-Acetylcy steine and Metamizole may falsely depress this assay. Reference Range HDL <40 mg/dL Low HDL Cholesterol HDL >or= 60 mg/dL High HDL Cholesterol Serum or plasma cholesterol in VLDL measurement (mass/volume)Ordered By: Lenora Lee on 11-17-2022 Cholesterol in VLDL [Mass/Vol] 21 mg/dL 5-40 [facility] Serum or plasma low density lipoprotein (LDL) cholesterol measurement (mass/volume)Ordered By: Lenora Lee on 11-17-2022 Cholesterol in LDL [Mass/Vol] 93 mg/dL 0-130 [facility] Thin prep Papanicolaou smear with manual screeningOrdered By: Lenora Lee on 11-17-2022 Thin prep Papanicolaou smear with manual screening 24 U/L 15-37 [facility] Absolute lymphocyte countOrd ered By: Dr. Hernandez on 08-14-2022 Lymphocytes Auto (Unsp spec) [#/Vol] 2.05 10*3/uL 0.83-4.51 [facility] Basophil percentageOrdered B y: Dr. Hernandez on 08-14-2022 Basophils/100 WBC (Bld) 0.8 % 0-1 [facility] Chloride [Moles/Vol] 106 mmol/L 98-107 [facility] Eosinophils/100 WBC (Bld) 3.9 % 0-5 [facility] Glucose [Mass/Vol] 140 mg/dL 74-106 [facility] Comment on above: Fasting Glucose resu lt greater than or equal to 126 mg/dL suggests DIABETES MELLITUS per A.D.A. criteria. Neutrophils (Bld) [#/Vol] 4.9 10*3/uL 2.0-7.7 [facility] Neutrophils/100 WBC (Bld) 62.2 % 47-70 [facility] Potassium [Moles/Vol] 3.6 mmol/L 3.5-5.1 [facility] Sodium [Moles/Vol] 140 mmol/L 136-145 [facility] WBC (Bld) [#/Vol] 7.9 10*3/uL 4.4-11.0 [facility] Blood erythrocytes count (nu mber/volume)Ordered By: Dr. Hernandez on 08-14-2022 RBC (Bld) [#/Vol] 5.04 10*6/uL 4.6-6.2 [facility] Blood hemoglobin measurement (mass/volume)Ordered By: Dr. Hernandez on 08-14-2022 Hemoglobin (Bld) [Mass/Vol] 14.5 g/dL 13.0-16.5 [facility] Blood lymphocytes/100 leukoc ytesOrdered By: Dr. Hernandez on 08-14-2022 Lymphocytes/100 WBC (Bld) 26.1 % 19-41 [facility] Blood monocytes/100 leukocyt esOrdered By: Dr. Hernandez on 08-14-2022 Monocytes/100 WBC (Bld) 6.9 % 0-10 [facility] Blood platelet mean volumeOr dered By: Dr. Hernandez on 08-14-2022 Platelet mean volume (Bld) [Entitic vol] 10.2 fL 6.2-12.0 [facility] Determination of erythrocyte mean corpuscular volume (MCV)Ordered By: Dr. Hernandez on 08-14-2022 MCV (RBC) [Entitic vol] 88.7 fL 80-94 [facility] Hematocrit Auto (Bld) [Volum e fraction]Ordered By: Dr. Hernandez on 08-14-2022 Hematocrit (Bld) [Volume fraction] 44.7 % 40-54 [facility] - Chemistry and C hemistry - challengeOrdered By: Dr. Hernandez on 08-14-2022 CO2 [Moles/Vol] 26.0 mmol/L 21.0-32.0 [facility] Natriuretic peptide B (Bld) [Mass/Vol] 42.8 pg/mL 0-100 [facility] Urea nitrogen/Creatinine [Mass ratio] 19.1 mg/mg 10-20 [facility] - Hematology and Cell countsOrdered By: Dr. Hernandez on 08-14-2022 Erythrocyte distribution width (RBC) [Entitic vol] 43.0 fL 35.1-43.9 [facility] Erythrocyte distribution width (RBC) [Ratio] 13.2 % 11.6-14.6 [facility] Immature granulocytes/100 WBC (Bld) 0.100 % 0.0-0.9 [facility] Comment on above: IG% - Immature Granu locytes (promyelocytes, myelocytes and metamyelocytes) > 1% indicates that a LEFT SHIFT is Present. MCH (RBC) [Entitic mass] 28.8 pg 27.0-32.0 [facility] Nucleated RBC/100 WBC (Bld) [Ratio] 0 % 0-5 [facility] MCHC Auto (RBC) [Mass/Vol]Or dered By: Dr. Hernandez on 08-14-2022 MCHC (RBC) [Mass/Vol] 32.4 g/dL 32-36 [facility] No Panel InformationOrdered By: Dr. Hernandez on 08-14-2022 Estimated Creatinine Clearance Calc 91.92 ml/min [facility] Estimated GFR (MDRD) Amer 99 mL/min >60 [facility] Comment on above: GFR Calc Estimated GFR (MDRD) Non-Af Amer 82 mL/min >60 [facility] Comment on above: Non- GFR Calc Thyroid Stimulating Hormone (TSH) 1.15 uIU/mL 0.358-3.74 [facility] Troponin I High Sensitivity 5 pg/mL 3.0-78.0 [facility] Comment on above: Please Note: New Claudia t Units and Gender Specific Reference Ranges. For more information see Policy Stat Procedure [place] High Sensitivity Troponin (TNIH) and attachments. Platelets bldOrdered By: Dr. Hernandez on 08-14-2022 Platelets (Bld) [#/Vol] 227 10*3/uL 150-450 [facility] Serum or plasma calcium igor urement (mass/volume)Ordered By: Dr. Hernandez on 08-14-2022 Calcium [Mass/Vol] 9.1 mg/dL 8.5-10.1 [facility] Serum or plasma creatinine m easurement (mass/volume)Ordered By: Dr. Hernandez on 08-14-2022 Creatinine [Mass/Vol] 0.99 mg/dL 0.70-1.30 [facility] Comment on above: The validity of the calculated GFR & GFRAA in patients over 70 years has not been determined. Clinical correlation is essential. Serum or plasma urea nitroge n measurement (mass/volume)Ordered By: Dr. Hernandez on 08-14-2022 Urea nitrogen [Mass/Vol] 19 mg/dL 7-18 [facility] Thin prep Papanicolaou smear with manual screeningOrdered By: Dr. Hernandez on 08-14-2022 Thin prep Papanicolaou smear with manual screening 8 5-15 [facility] Basophil percentageOrdered B y: Dr. Valle on 03-30-2023 Chloride [Moles/Vol] 106 mmol/L 98-107 [facility] Glucose [Mass/Vol] 124 mg/dL 74-106 [facility] Comment on above: Fasting Glucose resu lt from 100 to 125 mg/dL suggests IMPAIRED HOMEOSTASIS per A.D.A. criteria. Potassium [Moles/Vol] 3.8 mmol/L 3.5-5.1 [facility] Sodium [Moles/Vol] 137 mmol/L 136-145 [facility] Laboratory - Chemistry and C hemistry - challengeOrdered By: Dr. Valle on 06-30-2022 CO2 [Moles/Vol] 23.0 mmol/L 21.0-32.0 [facility] Urea nitrogen/Creatinine [Mass ratio] 18.4 mg/mg 10-20 [facility] No Panel InformationOrdered By: Dr. Valle on 06-30-2022 Estimated Creatinine Clearance Calc 79.82 ml/min [facility] Estimated GFR (MDRD) Amer 85 mL/min >60 [facility] Comment on above: GFR Calc Estimated GFR (MDRD) Non-Af Amer 70 mL/min >60 [facility] Comment on above: Non- GFR Calc Serum or plasma calcium igor urement (mass/volume)Ordered By: Dr. Valle on 06-30-2022 Calcium [Mass/Vol] 9.0 mg/dL 8.5-10.1 [facility] Serum or plasma creatinine m easurement (mass/volume)Ordered By: Dr. Valle on 06-30-2022 Creatinine [Mass/Vol] 1.14 mg/dL 0.70-1.30 [facility] Comment on above: The validity of the calculated GFR & GFRAA in patients over 70 years has not been determined. Clinical correlation is essential. Serum or plasma urea nitroge n measurement (mass/volume)Ordered By: Dr. Valle on 06-30-2022 Urea nitrogen [Mass/Vol] 21 mg/dL 7-18 [facility] Thin prep Papanicolaou smear with manual screeningOrdered By: Dr. Valle on 06-30-2022 Thin prep Papanicolaou smear with manual screening 8 5-15 [facility] Basophil percentageon 2021 Bilirubin [Mass/Vol] 0.30 mg/dL 0.20-1.00 [facility] Work Phone: [phone] Comment on above: For patients on eltr ombopag therapy, use of Dimension [place] TBIL is not recommended. Cholesterol [Mass/Vol] 144 mg/dL <200 [facility] Work Phone: [phone] Comment on above: <200 mg/dL Desirable 200-240 mg/dL Borderline >240 mg/dL High Risk Protein [Mass/Vol] 7.3 g/dL 6.4-8.2 [facility] Work Phone: [phone] Triglyceride [Mass/Vol] 83 mg/dL <199 [facility] Work Phone: [phone] Comment on above: The drugs N-Acetylcy steine and Metamizole may falsely depress this assay.Serum Triglycerides Reference Interval Normal <150 mg/dL Borderline high 150 - 199 mg/dL High 200 - 499 mg/dL Very High > or = 500 mg/dL Direct bilirubinon 2 Bilirubin.direct [Mass/Vol] 0.10 mg/dL 0.00-0.30 [facility] Work Phone: [phone] Laboratory - Chemistry and C hemistry - challengeon 02-21-2022 ALP [Catalytic activity/Vol] 90 U/L 45-117 [facility] Work Phone: [phone] ALT [Catalytic activity/Vol] 72 U/L 16-61 [facility] Work Phone: [phone] Globulin (S) [Mass/Vol] 3.3 g/dL 2.2-4.2 [facility] Work Phone: [phone] Serum or plasma albumin igor urement (mass/volume)on 02-21-2022 Albumin [Mass/Vol] 4.0 g/dL 3.2-5.0 [facility] Work Phone: [phone] Serum or plasma cholesterol in HDL measurement (mass/volume)on 02-21-2022 Cholesterol in HDL [Mass/Vol] 29 mg/dL >40 [facility] Work Phone: [phone] Comment on above: The drugs N-Acetylcy steine and Metamizole may falsely depress this assay. Reference Range HDL <40 mg/dL Low HDL Cholesterol HDL >or= 60 mg/dL High HDL Cholesterol Serum or plasma cholesterol in VLDL measurement (mass/volume)on 02-21-2022 Cholesterol in VLDL [Mass/Vol] 17 mg/dL 5-40 [facility] Work Phone: Serum or plasma low density lipoprotein (LDL) cholesterol measurement (mass/volume)on 02-21-2022 Cholesterol in LDL [Mass/Vol] 98 mg/dL 0-130 [facility] Work Phone: Thin prep Papanicolaou smear with manual screeningon 02-21-2022 Thin prep Papanicolaou smear with manual screening 28 U/L 15-37 [facility] Work Phone: CNOVon 10-18-2021 CNOV Office Visit ([facility] ) SUPA ADLER ([id number]) 1965 M Date Time Provider Department 10/18/21 6:15 PM COLUMBA WICK [facility] During your visit today, we recorded the following information about you: Temperature Pulse Respiration Blood pressure 98.2 degrees 70/minute 20/minute 136/88 Weight 111.6 kg Columba Wick APRN.CNP 10/18/2021 6:33 PM Signed ASSESSMENT/PLAN: 1. Laceration of left index finger without foreign body without damage to nail, initial encounter - ICD9: 883.0, ICD10: S61.211A - wound closed with one steri strip and reinforced with glue. Bulky dressing applied. You may remove this bandage in 24 hours. Clean with soap and water. Dry thoroughly. - keep area clean and dry. Apply a Band-Aid or cover if you will be in dirty environment. - Follow-up with your PCP in 3-5 days if symptoms have not improved or sooner if symptoms worsen. Columba Wick APRN.IVORY WOUND CARE INSTRUCTIONS: SURGICAL PROCEDURE WITH STERI-STRIP CLOSURE KEEP DRESSING IN PLACE FOR 24 HOURS. AVIOD BATHING FOR 24 HOURS. AVOID SWIMMING FOR 48 HOURS. THE INCISION MAY BE LEFT OPEN TO THE AIR AFTER 48 HOURS. A BANDAGE COVERING IS APPROPRIATE TO PREVENT GETTING DIRTY OR TO PROTECT FROM RUBBING BY CLOTHING. A SMALL AMOUNT OF REDNESS ALONG THE WOUND EDGE IS NORMAL. CONTACT US IF THERE IS MARKED OR INCREASING REDNESS, OR DISCOMFORT AFTER THE FIRST FEW HOURS,OR PUS OR LIQUID DRAINAGE AFTER THE FIRST FEW HOURS. [facility] Columba Wick APRN.ADMISSIONS EVALUATOR [address] [place] [address] APPOINTMENTS: Columba Wick APRN.CNP 10/18/2021 6:42 PM Signed Subjective HPI Supa Adler is a 56 year old male who presents with a laceration on his left index finger. He was hammering wood dinesh down when the hammer glanced the side of his finger. He denies pain. The finger is not swollen. There was a slight amount of bleeding at the time of the injury. His tetanus immunization is up to date. Review of Systems Constitutional: Negative for chills and fever. Musculoskeletal: Negative for falls and joint pain. See HPI Skin: Negative for itching and rash. BP 136/88 Pulse 70 Temp 36.8 ?C (98.2 ?F) Resp 20 Wt 111.6 kg (246 lb) SpO2 97% BMI 32.46 kg/m? PAST MEDICAL HISTORY Diagnosis Date - ASHD (arteriosclerotic heart disease) 06/25/2013 - Hypertension 2008 - Impaired fasting glucose 07/19/2020 - Viral pneumonia, unspecified Pneumonia PAST SURGICAL HISTORY Procedure Laterality Date - CARDIAC CATHETERIZATION: SCANNED RESULT COLONOSCOPY FLX DX W/COLLJ SPEC WHEN PFRMD 10/15/15 Colonoscopy ALLERGIES Patient has no known allergies. MEDICATIONS metoprolol succinate ER (TOPROL XL) 25 mg 24 hr tablet Take 1 tablet by mouth once daily. lisinopril (ZESTRIL) 10 mg tablet Take 1 tablet by mouth once daily. atorvastatin (LIPITOR) 80 mg tablet Take 1 tablet by mouth once daily. hydroCHLOROthiazide 12.5 mg capsule Take 1 capsule by mouth once daily. aspirin, enteric coated (ASPIRIN, ENTERIC COATED) 81 mg EC tablet Take 1 tablet by mouth once daily. FAMILY HISTORY Problem Relation Age of Onset - Alzheimer's Disease Mother - Hypertension Father - Ischemic Heart Disease Father [place] - Diabetes Sister - Hypertension Brother - other (ASHD) Brother - other (TIA) Brother - Diabetes Brother - Prostate Cancer Brother - Ischemic Heart Disease Paternal Aunt [place] Social History Tobacco Use - Smoking status: Former Smoker Years: 10.00 Types: Cigarettes - Smokeless tobacco: Current User Types: Chew - Tobacco comment: uses chew and states smokes less than one half a pack of cigs daily. Quit chewing 12/03/08, smokes less than 1 pk a month Substance Use Topics - Alcohol use: Yes Comment: once monthly - Drug use: No Objective Physical Exam Vitals and nursing note reviewed. Constitutional: Appearance: Normal appearance. Musculoskeletal: General: Signs of injury present. No swelling or tenderness. Hands: Skin: General: Skin is warm and dry. Capillary Refill: Capillary refill takes less than 2 seconds. Findings: No bruising or erythema. Neurological: Mental Status: He is alert. ASSESSMENT/PLAN: 1. Laceration of left index finger without foreign body without damage to nail, initial encounter - ICD9: 883.0, ICD10: S61.211A - wound closed with one steri strip and reinforced with glue. Bulky dressing applied. You may remove this bandage in 24 hours. Clean with soap and water. Dry thoroughly. - keep area clean and dry. Apply a Band-Aid or cover if you will be in dirty environment. - Follow-up with your PCP in 3-5 days if symptoms have not improved or sooner if symptoms worsen. Columba Wick, RAOUL.ADMISSIONS EVALUATOR Referring Provider: SELF [[id number]] Allergies As of Date: 10/18/2021 (No Known Allergies) Date Review (more content not included)... Normal [facility] CNCOon 12-30-2020 CNCO Letter Text Normal [facility] CNOVon 12-30-2020 CNOV Office Visit ([facility] ) CARLEENSUPA THOMPSON ([id number]) 1965 M Date Time Provider Department 12/30/20 5:15 PM JERI RAZA [facility] During your visit today, we recorded the following information about you: Temperature Pulse Respiration Blood pressure 99 degrees 76/minute 16/minute 122/86 Weight 111.8 kg Jeri Raza PA-C 12/30/2020 7:53 PM Signed This note was created using [employer]. Subjective Supa Adler is a 55 year old male. HPI Presents with a puncture wound to his left palm x1 hour. He states they both from his grain truck went into his hand. He denies any numbness or tingling. No trouble moving the thumb. His last tetanus was in 2008 and needs updated. He states he thought the bolt was pretty clean. He does not think any of it broke off. Review of Systems Musculoskeletal: Left hand wound All other systems reviewed and are negative. PAST MEDICAL HISTORY Diagnosis Date - ASHD (arteriosclerotic heart disease) 06/25/2013 - Hypertension 2008 - Impaired fasting glucose 07/19/2020 - Viral pneumonia, unspecified Pneumonia Current Outpatient Medications Medication Sig Dispense Refill - cephALEXin (KEFLEX) 500 mg capsule Take 1 capsule by mouth three times daily for 5 days. 15 capsule 0 - metoprolol succinate ER (TOPROL XL) 25 mg 24 hr tablet Take 1 tablet by mouth once daily. 90 tablet 3 - lisinopril (ZESTRIL) 10 mg tablet Take 1 tablet by mouth once daily. 90 tablet 3 - atorvastatin (LIPITOR) 80 mg tablet Take 1 tablet by mouth once daily. 90 tablet 3 - hydroCHLOROthiazide 12.5 mg capsule Take 1 capsule by mouth once daily. 90 capsule 3 - aspirin, enteric coated (ASPIRIN, ENTERIC COATED) 81 mg EC tablet Take 1 tablet by mouth once daily. 90 tablet 3 No current facility-administered medications for this visit. PAST SURGICAL HISTORY Procedure Laterality Date - CARDIAC CATHETERIZATION: SCANNED RESULT / COLONOSCOP W/ OR W/O [facility] SPEC 10/15/15 Colonoscopy FAMILY HISTORY Problem Relation Age of Onset - Alzheimer's Disease Mother - Hypertension Father - Ischemic Heart Disease Father [place] - Diabetes Sister - Hypertension Brother - other (ASHD) Brother - other (TIA) Brother - Diabetes Brother - Prostate Cancer Brother - Ischemic Heart Disease Paternal Aunt [place] Social History Tobacco Use - Smoking status: Former Smoker Years: 10.00 Types: Cigarettes - Smokeless tobacco: Current User Types: Chew - Tobacco comment: uses chew and states smokes less than one half a pack of cigs daily. Quit chewing 12/03/08, smokes less than 1 pk a month Substance Use Topics - Alcohol use: Yes Comment: once monthly - Drug use: No Objective BP 122/86 Pulse 76 Temp 37.2 ?C (99 ?F) Resp 16 Wt 111.8 kg (246 lb 6.4 oz) SpO2 97% BMI 32.51 kg/m? Physical Exam Vitals reviewed. Constitutional: Appearance: Normal appearance. HENT: Head: Normocephalic and atraumatic. Musculoskeletal: Hands: Comments: Patient has a puncture wound with a 2.5 cm flap laceration to the left thenar eminence of the palm. No active bleeding. On examination there is a small metallic foreign body that was removed. No neurovascular involvement. Normal range of motion of the thumb. Normal distal sensation. Normal strength against resistance. Radial pulse 2+. Skin: General: Skin is warm. Neurological: Mental Status: He is alert. Procedure: laceration repair Verbal permission given after risks and benefits discussed. Wound anesthetized with 4 cc's 1 % lidocaine. Wound cleansed and all visible foreign material was removed. wound edges reapproximated with 2 sutures of 4-0 prolene and steri strip. Nonstick dressing applied. Wound care instructions provided. Return for suture removal in 7 days. Assessment and Plan ASSESSMENT/PLAN: 1. Laceration of left hand with foreign body, initial encounter - ICD9: 882.1, ICD10: S61.422A X-ray was obtained which did not show any other foreign bodies in the wound. He did have a incidental foreign body between the third and fourth webspace which is likely chronic. I did let him know about that. His Tdap was updated. I did place 2 sutures to approximate the flap and then a Steri-Strip as it was too thin to suture. Given wound care instructions. Due to the foreign body that was removed and the puncture type wound I did put him on antibiotics prophylactically for a few days. Follow-up to have the sutures removed in 7 days. Patient agreeable. - XR HAND GENERAL 3V PA/LAT/OBL LT Jeri Raza PA-C Referring Provider: SELF [[id number]] Allergies As of Date: 12/30/2020 (No Known Allergies) Date Reviewed: 12/30/2020 Reviewed by: Samira Moses MA - Fully Assessed Reason for Visit: Puncture Wound [1986] Cmt: L palm punctured with bolt x1 hour Primary Visit Diagnosis:Laceration of left hand with foreign body, initial encounter [S61 (more content not included)... Normal [facility] XR HAND 3V PA/LAT/OBL LTon 0 12-30-2020 XR HAND 3V PA/LAT/OBL LT * * *Final Report* * * DATE OF EXAM: Dec 30 2020 6:08PM [id number] - XR HAND 3V PA/LAT/OBL LT / PROCEDURE REASON: Laceration of left hand with foreign body, initial encounter * * * * Physician Interpretation * * * * PROCEDURE: Left hand INDICATION: Laceration of left hand with foreign body, initial encounter .Pt. states bolt went through hand. Checking for foreign body. Area of interest is palm of Lt hand, fatty aspect of thumb. TECHNIQUE: XR HAND 3V PA/LAT/OBL LT COMPARISON: None FINDINGS: Tiny facial metallic foreign body in the web space between the 3rd and 4th fingers. No fracture or dislocation. Joint spaces are maintained. IMPRESSION: Tiny foreign body. Hospice Superintendent: SAMANTHA Transcribe Date/Time: Dec 30 2020 6:13P Dictated by : PAOLA WALLACE MD This examination was interpreted and the report reviewed and electronically signed by: PAOLA WALLACE MD on Dec 30 2020 6:14PM EST [id number] Normal [facility] XR Hand - left PA and Latera l and Obliqueon 12-30-2020 IMPRESSION: Tiny foreign body. Hospice Superintendent: SAMANTHA Transcribe Date/Time: Dec 30 2020 6:13P Dictated by : PAOLA WALLACE MD This examination was interpreted and the report reviewed and electronically signed by: PAOLA WALLACE MD on Dec 30 2020 6:14PM EST DIVISION OF RADIOLOGY * * *Final Report* * * DATE OF EXAM: Dec 30 2020 6:08PM WOX 5345 - XR HAND 3V PA/LAT/OBL LT / PROCEDURE REASON: Laceration of left hand with foreign body, initial encounter * * * * Physician Interpretation * * * * PROCEDURE: Left hand INDICATION: Laceration of left hand with foreign body, initial encounter .Pt. states bolt went through hand. Checking for foreign body. Area of interest is palm of Lt hand, fatty aspect of thumb. TECHNIQUE: XR HAND 3V PA/LAT/OBL LT COMPARISON: None FINDINGS: Tiny facial metallic foreign body in the web space between the 3rd and 4th fingers. No fracture or dislocation. Joint spaces are maintained. DIVISION OF RADIOLOGY Provider, [facility] - 12/30/2020 * * *Final Report* * * DATE OF EXAM: Dec 30 2020 6:08PM WOX 5345 - XR HAND 3V PA/LAT/OBL LT / PROCEDURE REASON: Laceration of left hand with foreign body, initial encounter * * * * Physician Interpretation * * * * PROCEDURE: Left hand INDICATION: Laceration of left hand with foreign body, initial encounter .Pt. states bolt went through hand. Checking for foreign body. Area of interest is palm of Lt hand, fatty aspect of thumb. TECHNIQUE: XR HAND 3V PA/LAT/OBL LT COMPARISON: None FINDINGS: Tiny facial metallic foreign body in the web space between the 3rd and 4th fingers. No fracture or dislocation. Joint spaces are maintained. IMPRESSION IMPRESSION: Tiny foreign body. Hospice Superintendent: [facility] Transcribe Date/Time: Dec 30 2020 6:13P Dictated by : PAOLA WALLACE MD This examination was interpreted and the report reviewed and electronically signed by: PAOLA WALLACE MD on Dec 30 2020 6:14PM EST [facility] Radiology Study observation (narrative) [facility] XR Hand - left PA and Latera l and ObliqueOrdered By: [facility] Provider on 12-30-2020 [facility] Office Visiton 11-10-2016 Fall risk assessment Fall risk assessment [facility] Work Phone: [phone] Protein mass conc Done [facility] Work Phone: [phone] Clinical Lists Update: 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 runner worker 10-14-2015 Left ventricular Ejection fraction 65 % [facility] Work Phone: [phone] Lab Report: Lipid Profileon 10-16-2014 Cholesterol in HDL mass conc 29 mg/dL [facility] Work Phone: [phone] Cholesterol in LDL mass conc 67 mg/dL 0-130 [facility] Work Phone: [phone] Cholesterol mass conc 112 mg/dL [address] [facility] Work Phone: [phone] Lipoprotein.pre-beta mass conc 16 mg/dL 5-40 [facility] Work Phone: [phone] Triglyceride mass conc 79 mg/dL 0-199 [facility] Work Phone: [phone] Lab Report: Liver Profileon 10-16-2014 Albumin mass conc 3.8 g/dL 3.4-5.0 [facility] Work Phone: [phone] ALP enzyme act/vol (Bld) 75 U/L 50-136 [facility] Work Phone: [phone] ALT enzyme act/vol 47 U/L 12-78 [facility] Work Phone: [phone] AST enzyme act/vol 21 U/L 15-37 [facility] Work Phone: [phone] Bilirubin mass conc 0.50 mg/dL 0.20-1.00 [facility] Work Phone: [phone] Bilirubin.direct mass conc 0.14 mg/dL 0.00-0.30 [facility] Work Phone: [phone] Globulin mass conc (S) 3.3 g/dL 2.7-4.2 [facility] Work Phone: [phone] Protein mass conc 7.1 g/dL 6.4-8.2 [facility] Work Phone: [phone] Office Visiton 10-14-2014 Tobacco smoking status NHIS Former smoker [facility] Work Phone: [phone] Office Visit: [facility] 03-24-20 14 cardiac risk group C [facility] Work Phone: [phone] General cardiovascular disease 10Y risk [#] [place] N/A [facility] Work Phone: [phone] Lab Report: LIVERon 09-27-19 14 ALK 71 U/L Normal 45-117 [facility] Work Phone: [phone] Office Visiton 09-11-2013 Tobacco smoking status NHIS Current [facility] Work Phone: [phone] Clinical Lists Update: Prelo runner worker 06-11-2013 Anion gap molar conc 8 mmol/L [facility] Work Phone: [phone] basophils as percent of blood leukocytes, manual count 0.5 % [facility] Work Phone: [phone] Calcium mass conc 9.0 mg/dL [facility] Work Phone: [phone] Chloride molar conc 103 mmol/L [facility] Work Phone: [phone] CO2 ppres (BldV) 26.0 mmol/L [facility] Work Phone: [phone] Creatinine mass conc 1.1 mg/dL [facility] Work Phone: [phone] eosinophils as percent of blood leukocytes, manual count 2.1 % [facility] Work Phone: [phone] Erythrocyte distribution width Ratio (RBC) 13.5 % [facility] Work Phone: [phone] Glucose mass conc 101 mg/dL [facility] Work Phone: [phone] Hematocrit Volume Fraction (Bld) 45.5 % [facility] Work Phone: [phone] Hemoglobin mass conc (Bld) 15.8 g/dL [facility] Work Phone: [phone] Lymphocytes/100 WBC (Bld) 25.2 % [facility] Work Phone: [phone] MCH Entitic mass (RBC) 29.2 pg [facility] Work Phone: [phone] MCHC mass conc (RBC) 34.7 g/dL [facility] Work Phone: [phone] MCV Entitic volume (RBC) 83.9 fL [facility] Work Phone: [phone] Monocytes/100 WBC (Bld) 7.8 % [facility] Work Phone: [phone] neutrophils, band form as percent of blood leukocytes, manual count 64.2 % [facility] Work Phone: [phone] Platelet mean volume Entitic volume (Bld) 9.9 fL [facility] Work Phone: [phone] Platelets #/vol (Bld) 240 10*3/mm3 [facility] Work Phone: [phone] Potassium molar conc 3.6 mmol/L [facility] Work Phone: [phone] RBC #/vol (Bld) 5.42 10*6/uL [facility] Work Phone: [phone] Sodium molar conc 137 mmol/L [facility] Work Phone: [phone] Urea nitrogen mass conc 16 mg/dL [facility] Work Phone: [phone] Urea nitrogen/Creatinine mass ratio 14.5 mg/mg [facility] Work Phone: [phone] WBC #/vol (Bld) 8.1 10*3/uL [facility] Work Phone: [phone] Vital Signs Date Time Vital Sign Value Performing Clinician Gokul james 12-16-2024 14:19-0400 Body height 185.42 cm No Primary Care Physician [facility] 12-16-2024 14:19-0400 Body mass index (BMI) [Ratio] 34.2 kg/m2 No Primary Care Physician [facility] 12-16-2024 14:19-0400 Body temperature 98.9 [degF] No Primary Care Physician [facility] 12-16-2024 14:19-0400 Body weight 117.48 kg No Primary Care Physician [facility] 12-16-2024 14:19-0400 Diastolic blood pressure 94 mm[Hg] No Primary Care Physician [facility] 12-16-2024 14:19-0400 Heart rate 78 /min No Primary Care Physician [facility] 12-16-2024 14:19-0400 Respiratory rate 18 /min No Primary Care Physician [facility] 12-16-2024 14:19-0400 SaO2% (BldA) [Mass fraction] 98 % No Primary Care Physician [facility] 12-16-2024 14:19-0400 Systolic blood pressure 162 mm[Hg] No Primary Care Physician [facility] 11-21-2024 15:32-0400 Diastolic blood pressure 84 mm[Hg] No Primary Care Physician [facility] 11-21-2024 15:32-0400 Systolic blood pressure 128 mm[Hg] No Primary Care Physician [facility] 11-21-2024 09:25-0400 Body height 185.42 cm No Primary Care Physician [facility] 11-21-2024 09:25-0400 Body mass index (BMI) [Ratio] 34.2 kg/m2 No Primary Care Physician [facility] 11-21-2024 09:25-0400 Body weight 117.48 kg No Primary Care Physician [facility] 11-21-2024 09:25-0400 Diastolic blood pressure 92 mm[Hg] No Primary Care Physician [facility] 11-21-2024 09:25-0400 Heart rate 76 /min No Primary Care Physician [facility] 11-21-2024 09:25-0400 Respiratory rate 18 /min No Primary Care Physician [facility] 11-21-2024 09:25-0400 SaO2% (BldA) [Mass fraction] 95 % No Primary Care Physician [facility] 11-21-2024 09:25-0400 Systolic blood pressure 139 mm[Hg] No Primary Care Physician [facility] 11-13-2024 21:01-0400 Body temperature 97.9 [degF] No Primary Care Physician [facility] 11-13-2024 21:01-0400 Diastolic blood pressure 93 mm[Hg] No Primary Care Physician [facility] 11-13-2024 21:01-0400 Heart rate 106 /min No Primary Care Physician [facility] 11-13-2024 21:01-0400 Respiratory rate 20 /min No Primary Care Physician [facility] 11-13-2024 21:01-0400 SaO2% (BldA) [Mass fraction] 95 % No Primary Care Physician [facility] 11-13-2024 21:01-0400 Systolic blood pressure 139 mm[Hg] No Primary Care Physician [facility] 11-13-2024 19:43-0400 Body height 185.42 cm No Primary Care Physician [facility] 11-13-2024 19:43-0400 Body mass index (BMI) [Ratio] 33.8 kg/m2 No Primary Care Physician [facility] 11-13-2024 19:43-0400 Body weight 116.28 kg No Primary Care Physician [facility] 04-20-2023 15:16-0500 Body height 185.42 cm No Primary Care Physician [facility] 04-20-2023 15:16-0500 Body mass index (BMI) [Ratio] 32.7 kg/m2 No Primary Care Physician [facility] 04-20-2023 15:16-0500 Body weight 112.49 kg No Primary Care Physician [facility] 04-20-2023 15:16-0500 Diastolic blood pressure 78 mm[Hg] No Primary Care Physician [facility] 04-20-2023 15:16-0500 Heart rate 74 /min No Primary Care Physician [facility] 04-20-2023 15:16-0500 Respiratory rate 16 /min No Primary Care Physician [facility] 04-20-2023 15:16-0500 Systolic blood pressure 138 mm[Hg] No Primary Care Physician [facility] 08-14-2022 16:43-0400 Diastolic blood pressure 88 mm[Hg] [facility] 08-14-2022 16:43-0400 Heart rate 83 /min [facility] 08-14-2022 16:43-0400 Respiratory rate 16 /min [facility] 08-14-2022 16:43-0400 SaO2% (BldA) [Mass fraction] 98 % [facility] 08-14-2022 16:43-0400 Systolic blood pressure 156 mm[Hg] [facility] 08-14-2022 14:10-0400 Body height 185.42 cm [facility] 08-14-2022 14:10-0400 Body mass index (BMI) [Ratio] 33.4 kg/m2 [facility] 08-14-2022 14:10-0400 Body temperature 98.3 [degF] [facility] 08-14-2022 14:10-0400 Body weight 114.84 kg [facility] 06-30-2022 19:53-0400 Diastolic blood pressure 81 mm[Hg] [facility] 06-30-2022 19:53-0400 Heart rate 86 /min [facility] 06-30-2022 19:53-0400 Respiratory rate 20 /min [facility] 06-30-2022 19:53-0400 SaO2% (BldA) [Mass fraction] 96 % [facility] 06-30-2022 19:53-0400 Systolic blood pressure 133 mm[Hg] [facility] 06-30-2022 17:41-0400 Body mass index (BMI) [Ratio] 33.3 kg/m2 [facility] 06-30-2022 17:41-0400 Body temperature 97 [degF] [facility] 06-30-2022 17:41-0400 Body weight 114.6 kg [facility] 02-21-2022 15:19-0500 Body height 185.42 cm No Primary Care Physician [facility] Work Phone: 02-21-2022 15:19-0500 Diastolic blood pressure 78 mm[Hg] No Primary Care Physician [facility] Work Phone: 02-21-2022 15:19-0500 Systolic blood pressure 128 mm[Hg] No Primary Care Physician [facility] Work Phone: 02-21-2022 15:19-0500 Body mass index (BMI) [Ratio] 33.2 kg/m2 No Primary Care Physician [facility] Work Phone: 02-21-2022 15:19-0500 Body weight 114.3 kg No Primary Care Physician [facility] Work Phone: 02-21-2022 15:19-0500 Heart rate 76 /min No Primary Care Physician [facility] Work Phone: 02-21-2022 15:19-0500 Respiratory rate 18 /min No Primary Care Physician [facility] Work Phone: 02-21-2022 15:19-0500 SaO2% (BldA) [Mass fraction] 95 % No Primary Care Physician [facility] Work Phone: 10-18-2021 18:11-0400 Body temperature 98.2 [degF] Columba Praisler-Wood MACHINE TOOL REBUILDER.ADMISSIONS EVALUATOR Work Phone: [facility] 10-18-2021 18:11-0400 Body weight 111.58 kg Columba Praisler-Wood MACHINE TOOL REBUILDER.ADMISSIONS EVALUATOR Work Phone: [facility] 10-18-2021 18:11-0400 Diastolic blood pressure 88 mm[Hg] Columba Praisler-Wood MACHINE TOOL REBUILDER.ADMISSIONS EVALUATOR Work Phone: [facility] 10-18-2021 18:11-0400 Heart rate 70 /min Columba Praisler-Wood MACHINE TOOL REBUILDER.[facility] Work Phone: [facility] 10-18-2021 18:11-0400 Respiratory rate 20 /min Columba Praisler-Wood MACHINE TOOL REBUILDER.[facility] Work Phone: [facility] 10-18-2021 18:11-0400 SaO2% (BldA) [Mass fraction] 97 % Columba Praisler-Wood MACHINE TOOL REBUILDER.ADMISSIONS EVALUATOR Work Phone: [facility] 10-18-2021 18:11-0400 Systolic blood pressure 136 mm[Hg] Columba Praisler-Wood MACHINE TOOL REBUILDER.ADMISSIONS EVALUATOR Work Phone: [facility] 11-10-2016 16:18-0400 BMI (Body Mass Index) 32.19 kg/m2 [facility] Work Phone: 11-10-2016 16:18-0400 BP Diastolic 60 mm[Hg] [facility] Work Phone: 11-10-2016 16:18-0400 BP Systolic 110 mm[Hg] [facility] Work Phone: 11-10-2016 16:18-0400 Height 185.42 cm [facility] Work Phone: 11-10-2016 16:18-0400 Pulse (Heart Rate) 64 /min [facility] Work Phone: 11-10-2016 16:18-0400 Respiratory Rate 20 /min [facility] Work Phone: 11-10-2016 16:18-0400 Weight 110.68 kg [facility] Work Phone: 10-20-2015 15:49-0400 BSA (Body Surface Area) 2.33 m2 [facility] Work Phone: 10-14-2014 14:34-0400 BP Diastolic 60 mm[Hg] [facility] Work Phone: 10-14-2014 14:34-0400 BP Systolic 115 mm[Hg] [facility] Work Phone: Encounters Encounter Date Encounter Type Care Provider Facility Start: 02-20-2025 ambulatory No Primary Car e Physician Facility:[facility] Start: 12-16-2024 End: 12-16-2024 ambulatory No Primary Care Physician -[facility] Start: 12-16-2024 End: 12-16-[address] Becki Larios MD -[facility] Work Phone: Start: 11-21-2024 End: 11-21-2024 Patient encounter procedure Lenora ARNDT -[facility] Work Phone: Start: 11-21-2024 End: 11-21-2024 ambulatory No Primary Care Physician -[facility] Start: 11-13-2024 End: 11-13-2024 Emergency department patient visit No Primary Care Physician -Emergency Department Work Phone: Start: 12-18-2023 End: 12-18-2023 ambulatory No Primary Care Physician Facility:[facility] Start: 05-05-2023 End: 05-05-2023 ambulatory No Primary Care Physician [facility] Work Phone: Start: 05-05-2023 End: 05-05-2023 Patient encounter procedure No Primary Care Physician [facility]-Pre-Admission Testing Work Phone: Start: 04-20-2023 End: 04-20-2023 Patient encounter procedure No Primary Care Physician [facility] Work Phone: Start: 09-27-2022 Patient encounter status No Primary Care Physician [facility] Start: 08-14-2022 End: 08-14-2022 Emergency department patient visit [facility] Start: 06-30-2022 End: 06-30-2022 Emergency department patient visit [facility] Start: 02-21-2022 End: 02-21-2022 ambulatory No Primary Care Physician [facility] Work Phone: Start: 02-21-2022 End: 02-21-2022 Patient encounter procedure No Primary Care Physician [facility] Start: 10-18-2021 End: 10-18-2021 Patient encounter procedure Columba Wick APRN.ADMISSIONS EVALUATOR Work Phone: [facility] Care Comment on above: Laceration of left i ndex finger without foreign body without damage to nail, initial encounter (Primary Dx) Start: 12-30-2020 End: 12-30-2020 Subsequent hospital visit by physician [facility] Work Phone: Radiology Comment on above: Laceration of left h and with foreign body, initial encounter [S61.422A] Procedures Date Procedure Procedure Detail Performing Clinician Start: 08-14-2022 Plain chest X-ray Start: 12-30-2020 Radex hand minimum 3 views Jeri Raza PA-C Work Phone: Start: 07-17-2020 Adult depression scr eening assessment Columba Wick APRN.ADMISSIONS EVALUATOR Work Phone: Start: 07-17-2020 Lipid 1996 panel - S grecthen or Plasma [facility] Work Phone: Start: 11-10-2016 End: 11-10-2016 Follow Up Appt 1 year Zaki Fry MD Start: 11-10-2016 End: 11-10-2016 MMM Zaki Fry MD Start: 10-20-2015 End: 10-20-2015 Follow Up Appt 1 year Zaki Fry MD Start: 10-20-2015 End: 10-20-2015 JANET Fry MD Start: 10-15-2015 Fatuma [facility]es [facility] Work Phone: Start: 10-14-2014 End: 10-16-2014 *Hepatic Function Panel Sunita Cardoso Start: 10-14-2014 End: 10-14-2014 NURSE EXECUTIVE Zaki Fry MD Start: 10-14-2014 End: 10-15-2014 Documentation of current medications Zaki Fry MD Start: 10-14-2014 End: 10-14-2014 Follow Up Appt 1 year Zaki Fry MD Start: 10-14-2014 End: 10-16-2014 Lipid 1996 panel - Serum or Plasma Zaki Fry MD Start: 03-24-2014 End: 11-10-2016 SAVAGE Lee PA-C Work Phone: Start: 03-24-2014 End: 11-10-2016 Follow Up Appt 6 months Lenora becker PA-C Work Phone: Start: 09-11-2013 End: 09-26-2013 *Hepatic Function Panel Sunita Cardoso Start: 09-11-2013 End: 02-25-2014 Follow Up Appt 6 months Sunita Cardoso Start: 09-11-2013 End: 09-26-2013 Lipid 1996 panel - Serum or Plasma Zaki Fry MD Start: 09-11-2013 End: 02-25-2014 JANET rFy MD Plan of Treatment Date Care Activity Detail Author Start: 12-30-2030 Urine microalbumin profile [facility] Start: 10-14-2025 Colonoscopy COLONOSCOPY [facility] Start: 10-14-2025 COLORECTAL CANCER SCREENING COLORECTAL CANCER SCREENING [facility] Start: 10-14-2025 Screening for malignant neoplasm of colon [facility] Start: 07-17-2025 Lipid panel Lipid Screening [facility] Start: 07-17-2025 LIPID SCREEN LIPID SCREEN [facility] Start: 07-17-2025 PROSTATE CANCER SCREENING DISCUSSION PROSTATE CANCER SCREENING DISCUSSION [facility] Start: 07-17-2025 Prostate specific antigen measurement Prostate Cancer Screening Discussion [facility] Start: 11-13-2024 [facility] Start: 12-03-2023 Covid-19 Vaccine ( season) Covid-19 Vaccine () [facility] Start: 12-03-2023 Influenza vaccination Influenza Vaccine (#1) [facility] Start: 07-18-2023 DIABETES SCREEN DIABETES SCREEN [facility] Start: 07-18-2023 Diabetes Screening Diabetes Screening [facility] Start: 08-14-2022 [facility] Start: 08-14-2022 Patient discharge [facility] Start: 12-02-2021 Influenza vaccination INFLUENZA (#1) [facility] Start: 07-17-2021 Adult depression screening assessment DEPRESSION SCREENING [facility] Start: 07-17-2021 ANNUAL PCP TEAM CHRONIC DISEASE VISIT ANNUAL PCP TEAM CHRONIC DISEASE VISIT [facility] Start: 07-17-2021 Hepatitis B surface antibody level LDL CHOLESTEROL [facility] Start: 11-09-2017 End: 11-09-2017 Appointment [facility]ointment [facility] Work Phone: Start: 11-10-2016 End: 11-10-2016 Follow Up Appt 1 year Follow Up Appt 1 year [facility] Work Phone: Start: 11-10-2016 End: 11-10-2016 MMM MMM [facility] Work Phone: Start: 10-20-2015 End: 10-20-2015 *Hepatic Function Panel *Hepatic Function Panel [facility] Work Phone: Start: 10-20-2015 End: 10-20-2015 Follow Up Appt 1 year Follow Up Appt 1 year [facility] Work Phone: Start: 10-20-2015 End: 10-20-2015 Lipid 1996 panel *Lipid Profile CC PCP [facility] Work Phone: Start: 10-20-2015 End: 10-20-2015 MMM MMM [facility] Work Phone: Start: 04-20-2015 End: 10-16-2014 *Hepatic Function Panel *Hepatic Function Panel [facility] Work Phone: Start: 04-20-2015 End: 10-16-2014 Lipid 1996 panel *Lipid Profile CC PCP [facility] Work Phone: Start: 10-14-2014 End: 10-16-2014 *Hepatic Function Panel *Hepatic Function Panel [facility] Work Phone: Start: 10-14-2014 End: 10-14-2014 NURSE EXECUTIVE NURSE EXECUTIVE [facility] Work Phone: Start: 10-14-2014 End: 10-14-2014 Follow Up Appt 1 year Follow Up Appt 1 year [facility] Work Phone: Start: 10-14-2014 End: 10-16-2014 Lipid 1996 panel *Lipid Profile CC PCP [facility] Work Phone: Start: 2014 SHINGRIX VACCINE (1 of 2) SHINGRIX VACCINE (1 of 2) [facility] Start: 03-24-2014 End: 11-10-2016 NURSE EXECUTIVE NURSE EXECUTIVE [facility] Work Phone: Start: 03-24-2014 End: 11-10-2016 Follow Up Appt 6 months Follow Up Appt 6 months [facility] Work Phone: Start: 09-11-2013 End: 09-26-2013 *Hepatic Function Panel *Hepatic Function Panel [facility] Work Phone: Start: 09-11-2013 End: 02-25-2014 Follow Up Appt 6 months Follow Up Appt 6 months [facility] Work Phone: Start: 09-11-2013 End: 09-26-2013 Lipid 1996 panel *Lipid Profile CC PCP [facility] Work Phone: Start: 09-11-2013 End: 02-25-2014 MMM MMM [facility] Work Phone: Start: 2009 COLOGUARD (FIT-DNA) COLOGUARD (FIT-DNA) [facility] Start: [address] COLONOGRAPHY [facility] Start: 2009 FECAL OCCULT BLOOD FECAL OCCULT BLOOD [facility] Start: 2009 Screening for malignant neoplasm of colon [facility] Start: 2009 SIGMOIDOSCOPY SIGMOIDOSCOPY [facility] Start: 1982 Anxiety Screening Anxiety Screening [facility] Start: 1982 BP CONTROLLED (<130/80) BP CONTROLLED (<130/80) [facility] Start: 1982 Depression Screening Depression Screening [facility] Start: 1982 HEPATITIS C SCREENING HEPATITIS C SCREENING [facility] Start: 1982 Hepatitis C screening Hepatitis C Screening [facility] Start: 1982 HIV SCREENING HIV SCREENING [facility] Start: 1982 HIV screening HIV Screening [facility] Start: 1964 COVID-19 VACCINE (#1) COVID-19 VACCINE (#1) [facility] CBC W Auto Different ial panel - Blood [facility] Comprehensive metabo lic 1999 panel - Serum or Plasma [facility] Lipid 1996 panel - S gretchen or Plasma [facility] Patient Education [facility] Work Phone: Patient referral [facility] Work Phone: [facility] Immunizations Immunization Date Immunization Notes Care Provider Fa joi 12-30-2020 tetanus toxoid, redu gloria diphtheria toxoid, and acellular pertussis vaccine, adsorbed Columba Wick APRN.CNP Work Phone: [facility] 12-12-2008 tetanus toxoid, redu gloria diphtheria toxoid, and acellular pertussis vaccine, adsorbed Columba Praisler-Wood MACHINE TOOL REBUILDER.ADMISSIONS EVALUATOR Work Phone: [facility] Payers Date Payer Category Payer Self-pay [id number] 2023 Unknown [id number] 2023 Unknown [id number] 2021 Unknown [facility] [id number] 2021-[address] [place] [address] PPO [id number] 2020 Unknown [facility] [id number] 2020-Present [phone] [place] [address] PPO [id number] 2020 Private Health Insurance [employer] POS [id number] 2020-Present [phone] [address] [place] [address] POS [id number] 2020 Private Health Insurance [employer] POS [id number] 2020-2020 [address] [place] [address] POS [id number] 2013 Private Health Insurance MOHSEN [id number] Unknown [employer]AN [id number] Unknown [id number] Unknown [id number] Unknown [id number] Unknown [id number] Social History Date Type Detail Facility Start: 06-25-2013 Tobacco smoking stat us NDIS Ex-smoker [facility] History of tobacco use Cigarette Smoker [facility] Start: 06-25-2013 Tobacco use and exposure User of smokeless tobacco [facility] History of tobacco use Chews Tobacco [facility] Start: 12-30-2020 End: 10-18-2021 Alcohol intake Current drinker of alcohol (finding) [facility] Start: 12-31-2007 History SDOH Alcohol Comment once monthly [facility] Start: 12-12-2008 Tobacco Comment uses chew and states smokes less than one half a pack of cigs daily. Quit chewing 12/03/08, smokes less than 1 pk a month [facility] Start: 1965 Sex Assigned At Not on file [facility] Start: 10-08-2021 End: 10-18-2021 Exposure to SARS-CoV-2 (event) Not sure [facility] Start: 02-21-2022 End: 04-20-2023 Tobacco smoking status NHIS Unknown if ever smoked [facility] Start: 1965 Sex Assigned At Male [facility] History of tobacco use Current smoker [facility] Start: 03-08-2020 End: 12-30-2020 History of Social function [facility] Start: 03-08-2020 End: 12-30-2020 Tobacco use panel [facility] Adult Depression Screening Assessment 0 [facility] Start: 11-13-2024 End: 12-16-2024 Tobacco smoking status NHIS Never smoked tobacco (finding) [facility] Sexual Orientation Heterosexual (finding) [facility] Mental Status Date Assessment Result Facility 11-13-2024 Cognitive function Awake;Alert;A ppropriate;Follow s Commands [facility] Work Phone: 08-14-2022 Cognitive function Level Of Cons ciousness Awake;Alert;Appropriate;Follow s Commands [facility] Work Phone: 06-30-2022 Cognitive function Level Of Cons ciousness Awake;Alert;Appropriate;Follow s Commands [facility] Work Phone: Clinical Notes 12-30-2020 to 11-21-2024 Note Date & Type Note Facility 11-21-2024 Evaluation note Diagnosis Onset Date Resolution 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 November 21, 2024 2:39pm Essential hypertension chronic November 21, 2024 2:39pm Hyperlipidemia chronic November 2:39pm Supraventricular tachycardia February 09, 2021 chronic November 21, 2024 2:39pm 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 COVID-19 virus detected (01/27/21) Essential hypertension Hyperlipidemia Obesity Pneumonia due to 2019 novel coronavirus (02/09/21) Supraventricular tachycardia (02/09/21) Home Medications aspirin 81 mg tablet,delayed release (Adult Aspirin Regimen) 81 mg PO DAILY 08/11/21 [History Last Taken Unknown] atorvastatin 80 mg tablet 80 mg PO QHS #90 tabs 06/20/22 [Rx Last Taken Unknown] metoprolol succinate 25 mg tablet,extended release 24 hr 25 mg PO DAILY #90 TABLETS 06/20/22 [Rx Last Taken Unknown] hydrochlorothiazide 12.5 mg capsule 12.5 mg PO DAILY #90 caps 07/19/22 [Rx Last Taken Unknown] lisinopril 10 mg tablet 10 mg PO DAILY #90 tabs 07/19/22 [Rx Last Taken Unknown] Allergy/AdvReac Type Severity Reaction Status Date / Time No Known Allergies Allergy Verified 08/14/22 14:12 Surgical History History of left heart catheterization (06/12/13) Social History (Updated 06/30/22 @ 19:[address] Keyon Valle MD) household members: spouse Smoking Status: Former smoker Smokeless tobacco user: chewing tobacco substance use type: does not use EXAM Physical Exam Const Vital Signs: 08/14/22 14:10 08/14/22 14:22 08/14/22 15:14 Temperature 98.3 F Temperature Source Temporal Pulse Rate 89 Respiratory Rate 18 Respiratory Pattern Normal Blood Pressure 136/82 H Blood Pressure Mean 100 Pulse Ox 97 Oxygen Delivery Method Room Air Room Air MDM MDM MDM Narrative Medical decision making narrative: HISTORY OF PRESENT ILLNESS: 57-year-old male here for palpitations. The patient states he developed intermittent palpitations with no associated shortness of breath or chest pains occurred approximately 1 hour prior to arrival. He states is similar to prior episodes when she was diagnosed with SVT. He states he was supposed to follow with Dr. Fry to schedule an ablation but never did. He states he will do thatnow that he had another episode. REVIEW OF SYSTEMS: Pertinent positives: Palpitations Pertinent negatives: Chest pain, shortness of breath, syncope PHYSICAL EXAM: Nursing triage notes reviewed, Vital signs reviewed Constitutional: please see mdm HENT: MMM Eyes: Pupils equal round and reactive to light, Extraocular muscles intact Neck: No stridor, no JVD, full neck ROM Lungs: Clear to auscultation, No wheezing or rales. No increased work of breathing, no conversational dyspnea, no accessory muscle use, no nasal flaring. No respiratory distress noted Heart: Regular rate and rhythm, No murmurs, No rubs and No gallops, 2+ distal pulses (radial, femoral, posterior tibial) in all extremities Abdomen: Soft, there is no tenderness, rigidity, rebound or guarding, no obviousperitoneal signs, no palpable pulsatile abdominal masses, no auscultated abdominal bruit : No CVAT Extremities: No edema Neuro: No focal neurological deficits, cranial nerves II through XII intact, 5/5strength in all extremities. Intact sensation to light touch in all extremities,2+ reflexes bilateral patella tendons. Normal gait. No ataxia. 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 No focal cardiopulmonary abnormalities noted I considered the following differential diagnosis: Arrhythmia, anemia, electrolyte abnormality myocardial ischemia. Patient's EKG showed no evidence of arrhythmia. Labs are unremarkable for signsof anemia, electrolyte abnormality, myocardial ischemia, thyroid dysfunction. No clear life-limiting etiology could be ascertained to the emergency department. The patient is appropriate for discharge home with close outpatientfollow-up with Dr. Fry. Factors affecting care: History of SVT, hypertension, hyperlipidemia and CAD Social determinants of health: Former smoker, chewing tobacco use History obtained from others: The patient's Shared decision making: I will have a discussion with the patient and or visitors regarding risk/benefits of further testing or admission. They will be made aware of of the risk/benefits inherent in this decision they will be given the opportunity to voice understanding. Consults: None Lab Data Attestation: I reviewed the patient's lab results. Lab results narrative: EKG with normal sinus rhythm, normal axis, normal intervals, no obvious STEMI, no arrhythmia CBC without leukocytosis, severe anemia, no thrombocytopenia. BMP without evidence of significant electrolyte abnormalities, no anion gap, no acute kidney injury. Troponin is negative, no evidence of myocardial ischemia BNP within normal limits suggestive of no volume overload, increased ventricularstretch or transmural wall pressure TSH within normal limits Labs: Laboratory Results - last 24 hr 08/14/22 08/14/22 08/14/22 15:00 15:00 15:00 WBC 7.9 RBC 5.04 Hgb 14.5 Hct 44.7 MCV 88.7 MCH 28.8 MCHC 32.4 RDW Std Deviation 43.0 RDW Coeff of Luis Armando 13.2 Plt Count 227 MPV 10.2 Immature Gran % (Auto) 0.100 Neut % (Auto) 62.2 Lymph % (Auto) 26.1 [place] % (Auto) 6.9 Eos % (Auto) 3.9 Baso % (Auto) 0.8 Absolute Neuts (auto) 4.9 Absolute Lymphs (auto) 2.05 Nucleated RBC % 0 Sodium 140 Potassium 3.6 Chloride 106 Carbon Dioxide 26.0 Anion Gap 8 BUN 19 H Creatinine 0.99 Estim Creat Clear Calc 91.92 Est GFR (MDRD) Af Amer 99 Est GFR (MDRD) Non-Af 82 BUN/Creatinine Ratio 19.1 Glucose 140 H Calcium 9.1 Troponin I High Sens 5 B-Natriuretic Peptide 42.8 TSH 08/14/22 15:00 WBC RBC Hgb Hct MCV MCH MCHC RDW Std Deviation RDW Coeff of Luis Armando Plt Count MPV Immature Gran % (Auto) Neut % (Auto) Lymph % (Auto) [place] % (Auto) Eos % (Auto) Baso % (Auto) Absolute Neuts (auto) Absolute Lymphs (auto) Nucleated RBC % Sodium Potassium Chloride Carbon Dioxide Anion Gap BUN Creatinine Estim Creat Clear Calc Est GFR (MDRD) Af Amer Est GFR (MDRD) Non-Af BUN/Creatinine Ratio Glucose Calcium Troponin I High Sens B-Natriuretic Peptide TSH 1.15 Radiography Diagnostic Testing: Clinical Impression(s) from Imaging Studies Chest X-Ray 08/14/22 15:17 IMPRESSION: undefined Discharge Plan Triage Chief Complaint: Palpitations ED Provider: Ian Hernandez Dx/Rx/DC Orders Prescriptions: No Action aspirin [Adult Aspirin Regimen] 81 mg tablet,delayed release (DR/EC) 81 mg PO DAILY atorvastatin 80 mg tablet 80 mg PO QHS Qty: 90 3RF Label Comments: cholesterol lowering metoprolol succinate 25 mg tablet extended release 24 hr 25 mg PO DAILY Qty: 90 3RF Label Comments: blood pressure hydrochlorothiazide 12.5 mg capsule 12.5 mg PO DAILY Qty: 90 3RF lisinopril 10 mg tablet 10 mg PO DAILY Qty: 90 3RF Label Comments: blood pressure Primary Care Provider: Care Physician,No Primary Referrals: Care Physician,No Primary [Primary Care Provider] - What to do if you have Problems For any increased pain, shortness of breath, bleeding, nausea or vomiting, chestpain, or any unexpected problems, contact your Primary Care Provider. Call [facility] ([phone]) or report to the closest Emergency Room. Call 911 if necessary. 08/14/22 1636 <Electronically signed by Ian Hernandez DO> Cosigner Signature (if applicable): CC: No Primary Care Physician ~ Signed [facility] Work Phone: 1(301) 279-102007-18-2022 NoteHNO ID: [id number] Author: Columba Wick APRN.ADMISSIONS EVALUATOR Service: ? Author Type: Nurse Practitioner Type: Progress Notes Filed: 10/18/2021 6:42 PM Note Text: Subjective HPI Supa Adler is a 56 year old male who presents with a laceration on his left index finger. He was hammering wood dinehs down when the hammer glanced the side of his finger. He denies pain. The finger is not swollen. There was a slight amount of bleeding at the time of the injury. His tetanus immunization is up to date. Review of Systems Constitutional: Negative for chills and fever. Musculoskeletal: Negative for falls and joint pain. See HPI Skin: Negative for itching and rash. BP 136/88 Pulse 70 Temp 36.8 ?C (98.2 ?F) Resp 20 Wt 111.6 kg (246 lb) SpO2 97% BMI 32.46 kg/m? PAST MEDICAL HISTORY Diagnosis Date - ASHD (arteriosclerotic heart disease) 06/25/2013 - Hypertension 2008 - Impaired fasting glucose 07/19/2020 - Viral pneumonia, unspecified Pneumonia PAST SURGICAL HISTORY Procedure Laterality Date - CARDIAC CATHETERIZATION: SCANNED RESULT COLONOSCOPY FLX DX W/COLLJ SPEC WHEN PFRMD 10/15/15 Colonoscopy ALLERGIES Patient has no known allergies. MEDICATIONS metoprolol succinate ER (TOPROL XL) 25 mg 24 hr tablet Take 1 tablet by mouth once daily. lisinopril (ZESTRIL) 10 mg tablet Take 1 tablet by mouth once daily. atorvastatin (LIPITOR) 80 mg tablet Take 1 tablet by mouth once daily. hydroCHLOROthiazide 12.5 mg capsule Take 1 capsule by mouth once daily. aspirin, enteric coated (ASPIRIN, ENTERIC COATED) 81 mg EC tablet Take 1 tablet by mouth once daily. FAMILY HISTORY Problem Relation Age of Onset - Alzheimer's Disease Mother - Hypertension Father - Ischemic Heart Disease Father [place] - Diabetes Sister - Hypertension Brother - other (ASHD) Brother - other (TIA) Brother - Diabetes Brother - Prostate Cancer Brother - Ischemic Heart Disease Paternal Aunt [place] Social History Tobacco Use - Smoking status: Former Smoker Years: 10.00 Types: Cigarettes - Smokeless tobacco: Current User Types: Chew - Tobacco comment: uses chew and states smokes less than one half a pack of cigs daily. Quit chewing 12/03/08, smokes less than 1 pk a month Substance Use Topics - Alcohol use: Yes Comment: once monthly - Drug use: No Objective Physical Exam Vitals and nursing note reviewed. Constitutional: Appearance: Normal appearance. Musculoskeletal: General: Signs of injury present. No swelling or tenderness. Hands: Skin: General: Skin is warm and dry. Capillary Refill: Capillary refill takes less than 2 seconds. Findings: No bruising or erythema. Neurological: Mental Status: He is alert. ASSESSMENT/PLAN: 1. Laceration of left index finger without foreign body without damage to nail, initial encounter - ICD9: 883.0, ICD10: S61.211A - wound closed with one steri strip and reinforced with glue. Bulky dressing applied. You may remove this bandage in 24 hours. Clean with soap and water. Dry thoroughly. - keep area clean and dry. Apply a Band-Aid or cover if you will be in dirty environment. - Follow-up with your PCP in 3-5 days if symptoms have not improved or sooner if symptoms worsen. Columba Wick [facility]N.[facility] History of Present illness Narrative* Columba Wick APRN.IVORY - 10/18/2021 6:39 PM EDT Images from the original note were not included. Subjective HPI Supa Adler is a 56 year old male who presents with a laceration on his left index finger. He was hammering wood dinesh down when the hammer glanced the side of his finger. He denies pain. The finger is not swollen. There was a slight amount of bleeding at the time of the injury. His tetanus immunization is up to date. Review of Systems Constitutional: Negative for chills and fever. Musculoskeletal: Negative for falls and joint pain. See HPI Skin: Negative for itching and rash. BP 136/88 Pulse 70 Temp 36.8 C (98.2 F) Resp 20 Wt 111.6 kg (246 lb) SpO2 97% BMI 32.46kg/m PAST MEDICAL HISTORY Diagnosis Date ASHD (arteriosclerotic heart disease) 06/25/2013 Hypertension 2008 Impaired fasting glucose 07/19/2020 Viral pneumonia, unspecified Pneumonia PAST SURGICAL HISTORY Procedure Laterality Date CARDIAC CATHETERIZATION: SCANNED RESULT COLONOSCOPY FLX DX W/COLLJ SPEC WHEN PFRMD 10/15/15 Colonoscopy ALLERGIES Patient has no known allergies. MEDICATIONS metoprolol succinate ER (TOPROL XL) 25 mg 24 hr tablet Take 1 tablet by mouth once daily. lisinopril (ZESTRIL) 10 mg tablet Take 1 tablet by mouth once daily. atorvastatin (LIPITOR) 80 mg tablet Take 1 tablet by mouth once daily. hydroCHLOROthiazide 12.5 mg capsule Take 1 capsule by mouth once daily. aspirin, enteric coated (ASPIRIN, ENTERIC COATED) 81 mg EC tablet Take 1 tablet by mouth once daily. FAMILY HISTORY Problem Relation Age of Onset Alzheimer's Disease Mother Hypertension Father Ischemic Heart Disease Father [place] Diabetes Sister Hypertension Brother other (ASHD) Brother other (TIA) Brother Diabetes Brother Prostate Cancer Brother Ischemic Heart Disease Paternal Aunt [place] Social History Tobacco Use Smoking status: Former Smoker Years: 10.00 Types: Cigarettes Smokeless tobacco: Current User Types: Chew Tobacco comment: uses chew and states smokes less than one half a pack of cigs daily. Quit chewing 12/03/08, smokes less than 1 pk a month Substance Use Topics Alcohol use: Yes Comment: once monthly Drug use: No Objective Physical Exam Vitals and nursing note reviewed. Constitutional: Appearance: Normal appearance. Musculoskeletal: General: Signs of injury present. No swelling or tenderness. Hands: Skin: General: Skin is warm and dry. Capillary Refill: Capillary refill takes less than 2 seconds. Findings: No bruising or erythema. Neurological: Mental Status: He is alert. ASSESSMENT/PLAN: 1. Laceration of left index finger without foreign body without damage to nail, initial encounter -ICD9: 883.0, ICD10: S61.211A - wound closed with one steri strip and reinforced with glue. Bulky dressing applied. You may remove this bandage in 24 hours. Clean with soap and water. Dry thoroughly. - keep area clean and dry. Apply a Band-Aid or cover if you will be in dirty environment. - Follow-up with your PCP in 3-5 days if symptoms have not improved or sooner if symptoms worsen. Columba Wick APRN.CNP [facility] Instructions* Patient Instructions* Columba Wick APRN.CNP - 10/18/2021 6:31 PM EDT ASSESSMENT/PLAN: 1. Laceration of left index finger without foreign body without damage to nail, initial encounter -ICD9: 883.0, ICD10: S61.211A - wound closed with one steri strip and reinforced with glue. Bulky dressing applied. You may remove this bandage in 24 hours. Clean with soap and water. Dry thoroughly. - keep area clean and dry. Apply a Band-Aid or cover if you will be in dirty environment. - Follow-up with your PCP in 3-5 days if symptoms have not improved or sooner if symptoms worsen. Columba Wick APRN.CNP WOUND CARE INSTRUCTIONS: SURGICAL PROCEDURE WITH STERI-STRIP CLOSURE KEEP DRESSING IN PLACE FOR 24 HOURS. AVIOD BATHING FOR 24 HOURS. AVOID SWIMMING FOR 48 HOURS. THE INCISION MAY BE LEFT OPEN TO THE AIR AFTER 48 HOURS. A BANDAGE COVERING IS APPROPRIATE TO PREVENT GETTING DIRTY OR TO PROTECT FROM RUBBING BY CLOTHING. A SMALL AMOUNT OF REDNESS ALONG THE WOUND EDGE IS NORMAL. CONTACT US IF THERE IS MARKED OR INCREASING REDNESS, OR DISCOMFORT AFTER THE FIRST FEW HOURS,OR PUSOR LIQUID DRAINAGE AFTER THE FIRST FEW HOURS. [facility] Columba Wick APRN.CNP [address] [place] [address] APPOINTMENTS:[phone] documented in [facility] Evaluation note* Diagnosis Onset Date Resolution Status Essential hypertension acute Hyperlipidemia acute Supraventricular tachycardia February 09, 2021 acute [facility] Work Phone: 1(302) 612-120911-09-2021 Evaluation note* Diagnosis Onset Date Resolution Status Atherosclerotic heart diseas e of nome coronary artery without angina pectoris chronic Essential hypertension chron ic Hyperlipidemia chronic Supraventricular tachycardia February 09, 2021 [facility] Work Phone: 1(656) 758-618611-04-2021 NoteHNO ID: [id number] Author: Renee Quarles Population Health Navigator Service: ? Author Type: ? Type: Progress Notes Filed: 02/04/2021 1:07 PM Note Text: POPULATION HEALTH NAVIGATION OUTREACH Action/FYI I left a voice message re: pcp No care everywhere Contact made with patient or family member? 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 No. Please bring a copy to your next appointment or email to Referrals: N/A Message Sent to Practice: NO Navigation Signature: Renee Quarles Population Health Navigator February 04, 2021 1:06 [facility]11-04-2021 NotePatient Outreach (NETNAV) NAYELYSUPA Roya ([id number]) 1965 M Date Time Provider Department 02/04/21 RENEE QUARLES During your visit today, we recorded the following information about you: Renee Quarles Population Health Navigator 02/04/2021 1:07 PM Signed POPULATION HEALTH NAVIGATION OUTREACH Action/FYI I left a voice message re: pcp No care everywhere Contact made with patient or family member? 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 No. Please bring a copy to your next appointment or email to [email or web address] Referrals: N/A Message Sent to Practice: NO Navigation Signature: Renee Qaurles Population Health Navigator February 04, 2021 1:06 PM Allergies As of Date: 02/04/2021 (No Known Allergies) Date Reviewed: 12/30/2020 Reviewed by: Samira Moses MA - Fully Assessed Reason for Visit: Population Health Navigation Outreach [[id number]] Cmt: Offboarding Prescriptions as of 02/04/2021 - metoprolol succinate ER (TOPROL XL) 25 mg 24 hr tablet Take 1 tablet by mouth once daily. - lisinopril (ZESTRIL) 10 mg tablet Take 1 tablet by mouth once daily. - atorvastatin (LIPITOR) 80 mg tablet Take 1 tablet by mouth once daily. - hydroCHLOROthiazide 12.5 mg capsule Take 1 capsule by mouth once daily. - aspirin, enteric coated (ASPIRIN, ENTERIC COATED) 81 mg EC tablet Take 1 tablet by mouth once daily. Problem List As Of Date 02/04/2021 Noted Resolved Essential Hypertension, Benign [I10] 12/12/2008 Hyperlipidemia with target LDL less than 100 [E*05/09/2012 Obesity, Class I, BMI 30-34.9 [E66.9] 05/09/2012 ASHD (arteriosclerotic heart disease) [I25.10] 06/25/2013 Impaired fasting glucose [R73.01] 07/19/2020 Encounter Status:Closed [facility] on 02/04/21[facility] NoteHNO ID: [id number] Author: Jeri Raza PA-C Service: ? Author Type: Physician Director Of [employer] Type: Progress Notes Filed: 12/30/2020 7:53 PM Note Text: This note was created using JoGururiter. Subjective Supa Adler is a 55 year old male. HPI Presents with a puncture wound to his left palm x1 hour. He states they both from his grain truck went into his hand. He denies any numbness or tingling. No trouble moving the thumb. His last tetanus was in 2008 and needs updated. He states he thought the bolt was pretty clean. He does not think any of it broke off. Review of Systems Musculoskeletal: Left hand wound All other systems reviewed and are negative. PAST MEDICAL HISTORY Diagnosis Date - ASHD (arteriosclerotic heart disease) 06/25/2013 - Hypertension 2008 - Impaired fasting glucose 07/19/2020 - Viral pneumonia, unspecified Pneumonia Current Outpatient Medications Medication Sig Dispense Refill - cephALEXin (KEFLEX) 500 mg capsule Take 1 capsule by mouth three times daily for 5 days. 15 capsule 0 - metoprolol succinate ER (TOPROL XL) 25 mg 24 hr tablet Take 1 tablet by mouth once daily. 90 tablet 3 - lisinopril (ZESTRIL) 10 mg tablet Take 1 tablet by mouth once daily. 90 tablet 3 - atorvastatin (LIPITOR) 80 mg tablet Take 1 tablet by mouth once daily. 90 tablet 3 - hydroCHLOROthiazide 12.5 mg capsule Take 1 capsule by mouth once daily. 90 capsule 3 - aspirin, enteric coated (ASPIRIN, ENTERIC COATED) 81 mg EC tablet Take 1 tablet by mouth once daily. 90 tablet 3 No current facility-administered medications for this visit. PAST SURGICAL HISTORY Procedure Laterality Date - CARDIAC CATHETERIZATION: SCANNED RESULT / COLONOSCOP W/ OR W/O [facility] SPEC 10/15/15 Colonoscopy FAMILY HISTORY Problem Relation Age of Onset - Alzheimer's Disease Mother - Hypertension Father - Ischemic Heart Disease Father [place] - Diabetes Sister - Hypertension Brother - other (ASHD) Brother - other (TIA) Brother - Diabetes Brother - Prostate Cancer Brother - Ischemic Heart Disease Paternal Aunt [place] Social History Tobacco Use - Smoking status: Former Smoker Years: 10.00 Types: Cigarettes - Smokeless tobacco: Current User Types: Chew - Tobacco comment: uses chew and states smokes less than one half a pack of cigs daily. Quit chewing 12/03/08, smokes less than 1 pk a month Substance Use Topics - Alcohol use: Yes Comment: once monthly - Drug use: No Objective BP 122/86 Pulse 76 Temp 37.2 ?C (99 ?F) Resp 16 Wt 111.8 kg (246 lb 6.4 oz) SpO2 97% BMI 32.51 kg/m? Physical Exam Vitals reviewed. Constitutional: Appearance: Normal appearance. HENT: Head: Normocephalic and atraumatic. Musculoskeletal: Hands: Comments: Patient has a puncture wound with a 2.5 cm flap laceration to the left thenar eminence of the palm. No active bleeding. On examination there is a small metallic foreign body that was removed. No neurovascular involvement. Normal range of motion of the thumb. Normal distal sensation. Normal strength against resistance. Radial pulse 2+. Skin: General: Skin is warm. Neurological: Mental Status: He is alert. Procedure: laceration repair Verbal permission given after risks and benefits discussed. Wound anesthetized with 4 cc's 1 % lidocaine. Wound cleansed and all visible foreign material was removed. wound edges reapproximated with 2 sutures of 4-0 prolene and steri strip. Nonstick dressing applied. Wound care instructions provided. Return for suture removal in 7 days. Assessment and Plan ASSESSMENT/PLAN: 1. Laceration of left hand with foreign body, initial encounter - ICD9: 882.1, ICD10: S61.422A X-ray was obtained which did not show any other foreign bodies in the wound. He did have a incidental foreign body between the third and fourth webspace which is likely chronic. I did let him know about that. His Tdap was updated. I did place 2 sutures to approximate the flap and then a Steri-Strip as it was too thin to suture. Given wound care instructions. Due to the foreign body that was removed and the puncture type wound I did put him on antibiotics prophylactically for a few days. Follow-up to have the sutures removed in 7 days. Patient agreeable. - XR HAND GENERAL 3V PA/LAT/OBL LT YRIS [facility]09-29-2021 NoteHNO ID: [id number] Author: RT Oksana(Roya) Service: ? Author Type: Technologist Type: Progress Notes Filed: 12/30/2020 6:09 PM Note Text: Radiology Service Progress Note PATIENT NAME: Supa Adler DATE OF SERVICE: December 30, 2020 TIME: 6:01 PM PATIENT IDENTITY VERIFICATION COMPLETED USING TWO (2) IDENTIFIERS: Name and Date of confirmed by patient verbally. FALL SCREENING: Has the patient had 2 falls in the last year or 1 fall with injury or currently using an Ambulatory Assistive Device (Walker, Cane, Wheelchair, Crutches, etc.)? No PATIENT GENDER DATA: Male PATIENT RELEVANT IMPLANT DATA REVIEWED: Not Applicable RADIOLOGY DEPARTMENT: General X-ray: Exam(s) Completed: Upper Extremity X-Ray(s): Hand, left PERIPHERAL IV DATA: Not applicable SIGNED BY: RT Oksana(oRya) December 30, 2020 6:01 [facility]09-29[facility]21 History of Present illness Narrative* Darian Garcia RT(R) - 12/30/2020 6:00 PM EDT Radiology Service Progress Note PATIENT NAME: Supa Adler DATE OF SERVICE: December 30, 2020 TIME: 6:01 PM PATIENT IDENTITY VERIFICATION COMPLETED USING TWO (2) IDENTIFIERS: Name and Date of confirmedby patient verbally. FALL SCREENING: Has the patient had 2 falls in the last year or 1 fall with injury or currently using an Ambulatory Assistive Device (Walker, Cane, Wheelchair, Crutches, etc.)? No PATIENT GENDER DATA: Male PATIENT RELEVANT IMPLANT DATA REVIEWED: Not Applicable RADIOLOGY DEPARTMENT: General X-ray: Exam(s) Completed: Upper Extremity X- Ray(s): Hand, left PERIPHERAL IV DATA: Not applicable SIGNED BY: RT Oksana(R) December 30, 2020 6:01 PM [facility]* Diagnosis Laceration of left index finger without foreign body without damage to nail, initial encounter- Primary documented in this encounter [facility] noteNo assessment information availableWWilson Health Work Phone: Evaluation note* Diagnosis Laceration of left hand with foreign body, initial encounter documented in this encounter [facility] note* Diagnosis Onset Date Resolution Status Admit Date Atherosclerotic heart diseas e of [place] coronary artery without angina pectoris chronic November 022024 2:39pm Essential hypertension chronic Au 2024 2:39pm Hyperlipidemia chronic November 2:39pm Supraventricular tachycardia February 09, 2021 chronic November 21, 2024 2:39pm [facility] Work Phone: Hospital Discharge instructions Additional Instructions Thank you for trusting us with your care today! Please take Tylenol (2 pills, 650 mg), ibuprofen (2 pills, 400 mg) every 6 hours as needed for pain and fever control. Please return to the emergency department if your symptoms change or worsen. Please follow with your primary care physician for further outpatient evaluation and management.[facility] Work Phone: Hospital Discharge instructionsAdditional Instructions Please follow-up with Dr. Fry as soon as possible for an ablation. Your evaluation in the Emergency Department did not reveal any acute reason for admission. However, I want to emphasize that you may be early in the course of a disease process or illness even if it is not present. For this reason you should follow-up within 24 hours for reevaluation with either your primary care physician or if necessary back here in the Emergency Department. You should return to the Emergency Department immediately if your symptoms worsen or new symptoms develop.[facility] Work Phone: Hospital Discharge instructionsAmbulatory Orders* General Surgery Location: None Selected [facility] Work Phone: Reason for referral (narrative)* Diagnostic Procedure Only (Urgent) - Closed Specialty Diagnoses / Procedures Referred By Contac t Referred To Contact XR IMAGING Diagnoses Laceration of left hand with foreign body, initial encounter Procedures XR HAND GENERAL 3V PA/LAT/OBL LT X-RAY HAND MINIMUM 3 VIEWS Jeri Raza PA-C [address] [place] [address] [place] [id number] Referral ID Status Reason Start Date Expiration Date V isits Requested Visits Authorized Closed Auto-Generate d Referral 12/30/2020 01/29/2022 1 1 [facility] ([facility]arrative)No reason for referral information availableWWilson Health Work Phone: Reason for visit Narrative* Diagnostic Procedure Only (Urgent) - Closed Specialty Diagnoses / Procedures Referred By Contac t Referred To Contact XR IMAGING Diagnoses Laceration of left hand with foreign body, initial encounter Procedures XR HAND GENERAL 3V PA/LAT/OBL LT X-RAY HAND MINIMUM 3 VIEWS Jeri Raza PA-C [address] [place] [address] [place] [address] Referral ID Status Reason Start Date Expiration Date V isits Requested Visits Authorized Closed Auto-Generate d Referral 12/30/2020 01/29/2022 1 1 [facility] Advance Directives Documents on File Type Date Recorded 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 Advance Directive(s) 10/15/2015 7:30 AM Advance Directive Response Recorded Date/ Time Advance Directives No May 7:51am Living Will No May 26 7:51am Power of Electronic Industrial Controls Mechanic No May 26, 2021 7:51am Advance Directive Response Recorded Date/ Time Advance Directives No May 8:51am Living Will No August 14, 2022 2 :18pm Power of Electronic Industrial Controls Mechanic No August 14, 2022 2:18pm Advance Directive Response Recorded Date/ Time Advance Directives No May 7:51am Living Will No August 14, 2022 1 :18pm Power of Electronic Industrial Controls Mechanic No August 14, 2022 1:18pm Advance Directive Response Recorded Date/ Time Do you have a Healthcare Power of Electronic Industrial Controls Mechanic? No November 13, 2024 8:03pm Advance Directives No May 8:51am Summary Purpose Family History Relationship Condition Age at Onset Recorded Date/T ishaan father Coronary artery disease 68 grandfather Coronary artery disease Unknown brother Coronary artery disease 69 sister Coronary artery disease 75 brother Heart valve disease Unknown Relationship Condition Age at Onset Recorded Date/T ishaan father Coronary artery disease 68 Myocardial infarction Unknown grandfather Coronary artery disease Unknown brother Coronary artery disease 69 sister Coronary artery disease 75 brother Heart valve disease Unknown mother Dementia Unknown Chief Complaint and Reason for Visit Chief Complaint 6 M FU EORDER Reason for Visit Essential hypertensi on Hyperlipidemia Supraventricular tachycardia Chief Complaint PALPITATIONS PALPITATION Chief Complaint 1 y fu EP Ablation of SVT / Atrial Flut ([id number]) Reason for Visit Atherosclerotic hear t disease of [place] coronary artery without angina pectoris Essential hypertension Hyperlipidemia Supraventricular tachycardia Chief Complaint Admit Date AFIB November 13, 2024 7: 42pm Chief Complaint Admit Date AFIB November 13, 2024 7: 42pm S/P [facility] 11/13November 21, 2024 2: 39pm Reason for Visit Admit Date Atherosclerotic heart diseas e of [place] coronary artery without angina pectoris November 21, 2024 2:39pm Essential hypertension November 21, 2024 2:39pm Hyperlipidemia November 21, 2024 2: 39pm Supraventricular tachycardia November 2:39pm Chief Complaint Admit Date AFIB November 13, 2024 7: 42pm S/P [facility] 11/13November 21, 2024 2: 39pm EST CARE-PPW GIVEN December 16, 2024 1:58pm Reason for Visit Admit Date Atherosclerotic heart diseas e of [place] coronary artery without angina pectoris November 21, 2024 2:39pm Essential hypertension November 21, 2024 2:39pm Hyperlipidemia November 21, 2024 2: 39pm Supraventricular tachycardia November 2:39pm Atherosclerotic heart diseas e of [place] coronary artery without angina pectoris December 16, 2024 1:58pm Essential hypertension December 16, 2 025 1:58pm Supraventricular tachycardia December 022024 1:58pm Encounter for screening for malignant ne oplasm of colon December 16, 2024 1:58pm Establishing care with new doctor, paulette ware for December 16, 2024 1:58pm Radiculopathy affecting upper extremity December 16, 2024 1:58pm Additional Source Comments Source Comments (unrecognize d section and content) In the event this informatio n is protected by the Federal Confidentiality of Alcohol and Drug Abuse Patient Records regulations: The Federal rules restrict any use of the information to criminally investigate or prosecute any alcohol or drug abuse patient.[facility] the event this information is protected by the Federal Confidentiality of Alcohol and Drug Abuse Patient Records regulations: The Federal rules restrict any use of the information to criminally investigate or prosecute any alcohol or drug abuse patient.[facility] Reason for Visit (unrecogniz ed section and content) Reason Comments Finger Injury L hand 2nd finger hi t with hammer x30 mins Care Teams (unrecognized sec tion and content) Money 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 Darien Ball III, MD Family Provider Active No Primary Care Physician Primary Care Provider Active Team Status: Inactive Member Role Status Dates No Primary Care Physician Primary Care Provider Active Dr. Keyon Valle MD Attending Provider, Emergency Provi esha Active Team Status: Inactive Member Role Status Dates No Primary Care Physician Primary Care Provider Active Dr. Ian Hernandez DO Emergency Provider Active Team Status: Inactive Member Role Status Dates No Primary Care Physician Primary Care Provider, Refer ring Provider Active Dr. Zaki Fry MD Attending Provider Active Team Status: Inactive Member Role Status Dates Dr. 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 Tami Vázquez MD Emergency Provider Active S tart: November 13, 2024 End: November 13, 2024 Team Status: Inactive Member Role/Relationship Status Dates No Primary Care Physician Primary Care Provider Active Start: November 13, 2024 End: November 13, 2024 Dr. Tami Vázquez MD Attending Provider Active S tart: November 13, 2024 End: November 13, 2024 Dr. Tami Vázquez MD Emergency Provider Active S tart: November 13, 2024 End: November 13, 2024 Team Status: Inactive Member Role/Relationship Status Dates No Primary Care Physician Primary Care Provider Active Start: November 21, 2024 End: November 21, 2024 No Primary Care Physician Referring Provider Active Start: November 21, 2024 End: November 21, 2024 Lenora Lee PA, PA Attending Provider Active Start: November 21, 2024 End: November 21, 2024 Team Status: Inactive Member Role/Relationship Status Dates No Primary Care Physician Primary Care Provider Active Start: December 16, 2024 End: December 16, 2024 No Primary Care Physician Referring Provider Active Start: December 16, 2024 End: December 16, 2024 Dr. Becki Larios MD Attending Provider Active Start: December 16, 2024 End: December 16, 2024 (unrecognized sect ion and content) No Status Records FoundNo Status Records Found INFORMATION SOURCE (unrecogn ized section and content) DATE CREATED AUTHOR 10/22/2021 [facility] DATE CREATED AUTHOR AUTHOR'S LUCRETIA ROD 11/23/2024 [facility] Goals (unrecognized section and content) Goals may be documented in a n alternate sectionGoals may be documented in an alternate sectionGoals may be documented in an alternate sectionGoals may be documented in an alternate sectionGoals may be documented in an alternate sectionGoals may be documented in an alternate section FOR RECORDS PERTAINING TO PATIENTS WHO ARE OR HAVE BEEN ENROLLED IN A CHEMICAL DEPENDENCY/SUBSTANCEABUSE PROGRAM, SOME INFORMATION MAY BE OMITTED. This clinical summary was aggregated from multiple sources. Caution should be exercised in using it in the provision of clinical care. This summary normalizes information from multiple sources, and as a consequence, information in this document may materially change the coding, format and clinical context of patient data. In addition, data may be omitted in some cases. CLINICAL DECISIONS SHOULD BE BASED ON THE PRIMARY CLINICAL RECORDS. [employer] [facility]. provides no warranty or guarantee of the accuracy or completeness of information in this document.
[2024-12-17 07:13] LABS: Hematocrit 44.1 % (40-54); Hemoglobin 14.7 g/dL (13.0-16.5); Immature Granulocytes Count 0.030 X10^3/uL (0.0-0.0); Mean Corp Hgb Conc 33.3 g/dL (32-36); Mean Corpuscular Volume 87.8 fL (80-94); Mean Platelet Vol. 10.0 fl (6.2-12.0); NRBC Flagged by Analyzer 0 % (0-5); Platelet Count 256 K/mm3 (150-450); RBC Distribution Width CV 13.1 % (11.6-14.6); RBC Distribution Width SD 42.0 fl (35.1-43.9); Red Blood Count 5.02 M/mm3 (4.6-6.2); White Blood Count 7.1 K/mm3 (4.4-11.0)
[2024-12-17 07:40] LABS: AST(SGOT) 38 U/L (<=37); Alanine Aminotransfer ALT/SGPT 79 U/L (<=46); Albumin, Serum 4.2 g/dL (3.4-4.8); Alkaline Phosphatase 86 U/L (40-129); Anion Gap 12 (5-15); BUN 16 mg/dL (4-19); BUN/Creat Ratio 16.7 RATIO (10-20); Calcium,Total 9.6 mg/dL (7.6-11.0); Carbon Dioxide 24.5 mmol/L (21.0-32.0); Chloride 106 mmol/L (98-108); Cholesterol 129 mg/dL (<=200); Globulin 2.7 g/dL (2.2-4.2); Glucose 130 mg/dL (70-99); Low Density Lipoprotein Calc. 82 mg/dL; Potassium 4.3 mmol/L (3.3-5.1); Triglycerides 110 mg/dL; Very Low Density Lipoprotein 22 mg/dL (5-40); cholesterol:hdl ratio screen 5.18
== END | disposition home or self-care (01) ==
LOC: LAB 05:56
PROVIDERS: PCP Internal Medicine; Referring Provider Internal Medicine; Visit Provider Internal Medicine
DX: I10 Essential (primary) hypertension (principal)
CPT/HCPCS: 36415; 80053; 80061; 83036; 85025

== ENCOUNTER → 2025-02-05 | Outpatient (CLI) | payer BC, SELFPAY ==
--- NOTE | 2025-02-05 14:41 | NEURO ---
NCS and/or EMG Patient Report Ordering Doctor: Becki Larios DATE OF SERVICE: 02/05/25 Supa presents for electrodiagnostic testing of the left upper limb. He reports left-sided neck pain radiating down to the hand. Electrodiagnostic findings: Left median motor nerve demonstrates normal distal latency and amplitude with borderline reduced conduction velocity. Normal left ulnar motor response. Normal median and ulnar F?waves. Sensory responses are within normal limits. Needle EMG testing was performed in the left upper limb. 1+ fibrillations noted in the flexor carpi ulnaris, pronator teres and lower left cervical paraspinals. Motor unit action potentials are of normal amplitude and duration. Electrodiagnostic impression: This is an abnormal study. 1. Electrodiagnostic findings are consistent with an acute left C7 radiculopathy. Consider clinical correlation with cervical spine imaging. 2. No electrodiagnostic evidence is noted for peripheral neuropathy, including carpal tunnel or cubital tunnel syndrome. Multi Select Codes Neurology Neurology Interp Codes: 43399-76 Musc test done w/n test comp (interp) and 47349-85 Nrv cndj tst 5-6 studies (interp)
== END | disposition home or self-care (01) ==
LOC: PSN 13:31
PROVIDERS: PCP Internal Medicine; Referring Provider Internal Medicine; Visit Provider Internal Medicine
DX: M54.10 Radiculopathy, site unspecified (principal)
CPT/HCPCS: 95886; 95909

== ENCOUNTER → 2025-02-18 | Outpatient (CLI) | payer BC, SELFPAY ==
--- NOTE | 2025-02-18 16:22 | MRI_ITS ---
PROCEDURE: SPINE CERVICAL (ROUTINE) 02/18/2025 REASON FOR EXAM: RADICULOPATHY, ABNORMAL MRI TECHNIQUE: Procedure Code: MRISPC Modality: MR Procedure: SPINE CERVICAL (ROUTINE) Multiplanar and multisequence images were obtained without IV contrast administration. FINDINGS: Vertebrae: Cervical vertebral body heights are preserved. Bone marrow signal is unremarkable. Alignment: Normal. No spondylolisthesis. Spinal Cord: Cervical spinal cord is of normal size and signal intensities. Structures at the foramen magnum are unremarkable. C2-3: Disc osteophyte complex. Uncovertebral hypertrophy. Facet joint arthropathy. Severe canal stenosis. Severe right and moderate left foramina stenosis. C3-4: Disc osteophyte complex. Uncovertebral hypertrophy. Facet joints arthropathy. Severe bilateral foramina stenosis. Moderate canal stenosis. C4-5: Disc osteophyte complex. Disc desiccation uncovertebral hypertrophy. Facet joint arthropathy. Severe bilateral foramina stenosis. Moderate canal stenosis. C5-6: Disc osteophyte complex. Disc desiccation. Facet joint arthropathy. Moderate bilateral foramina stenosis. Moderate canal stenosis. C6-7: Disc desiccation. Disc osteophyte complex. Mild bilateral foramina stenosis. Mild canal stenosis. C7-T1: Unremarkable MRI/Spine Cervical (Routine) IMPRESSION: Degenerate changes, predominantly for severe canal stenosis and severe right an d moderate left foramina stenosis at C2-C3. Severe bilateral foramina stenosis and moderate canal stenosis at C3-C4. Severe bilateral foramina stenosis and moderate canal stenosis at C4-C5. Moderate bilateral foramina stenosis and moderate canal stenosis at C5-C6. Reading Location: [id number]
--- NOTE | 2025-02-18 16:45 | RAD_ITS ---
PROCEDURE: ORBITS FOR FOREIGN BODY 02/18/2025 REASON FOR EXAM: CLEARANCE FOR MRI EXAM TODAY TECHNIQUE: Procedure Code: [id number]. Modality: DX Procedure: ORBITS FOR FOREIGN BODY COMPARISON: None. FINDINGS: Unremarkable radiograph of the orbits and visualized cranium. No radiopaque foreign body is seen. No abnormal opacification of the paranasal sinuses or mastoid air cells appreciated. RAD/Orbits for Foreign Body IMPRESSION: Unremarkable exam. No radiopaque foreign body visualized. Reading Location: [id number]
--- OUTSIDE RECORDS SUMMARY | 2025-02-18 19:35 | XMS RPT_ITS | CCD ---
Author Organization [facility] Care Team Providers Care Butcher Name Role Phone Ying Hendricks Unavailable Marily Hendricksricia Y Unavailable Lizzy WILLIAMSON MD, Frank A [...] Physician, No Primary Primary Care Provider Unavailable Dr. Tami Vázquez MD Emergency Provider Unavailab miri Vázquez MD, Dr. Garrett Attending Provider Unavailab le Care Physician, No Primary Referring Provider Un available Lenora Guevara Attending Provider [phone] Harriet HUTSON, Dr. Connell Attending Provider Care Physician, No Primary Primary Care Physicia n Unavailable Dr. Tami Vázquez MD Attending Physician Unavaila izzy Vázquez MD, Dr. Garrett Emergency Department Physici an Unavailable Lenora Guevara Attending Physician [phone] Harriet HUTSON, Dr. Connell Attending Physician [phone] Dr. Becki Larios MD Primary Care Physician Dr. Becki Larios MD Referring Provider Salomón Peacock Attending Unavailable Becki Larios Referring Unavailable Harriet, Becki Primary Care Unavailable [place], Becki Consulting Unavailable Lenora Guevara Attending Unavail able Harriet, Becki Primary Care Unavailable [place], Jarrod Consulting Unavailable [place], Jarrod Referring Unavailable Lenora Guevara Attending Unavail able [place], Becki Primary Care Unavailable Care Physician, No Primary Referring Unava ilable Lenora Guevara Attending Unavail able Care Physician, No Primary Primary Care Unava ilable Care Physician, No Primary Referring Unava ilable Harriet, Becki Attending Unavailable Care Physician, No Primary Primary Care Unava ilable Care Physician, No Primary Referring Unava ilable Tami Vázquez Attending Unavailable Care Physician, No Primary Primary Care Unava ilable [place], Becki Primary Care Unavailable [place], Jarrod Attending Unavailable [place], Jarrod Referring Unavailable [place], Ebcki Referring Unavailable Harriet, Becki Primary Care Unavailable [place], Becki Attending Unavailable [place], Becki Attending Unavailable [place], Becki Referring Unavailable Harriet, Becki Primary Care Unavailable Harriet, Becki Attending Unavailable [place], Becki Referring Unavailable [place], Becki Primary Care Unavailable Allergies Allergy Classification Reported Allergen(s) Allergy Type Date of Onset Reaction(s) Facility (5 sources) Lisinopril Drug Allergy 11-13-2024 [facility] (1 source) Lisinopril Drug Allergy 12-25-2024 [facility] Repository Medications Current Medications Medication Drug Class(es) Dates Sig (Normalized) Sig (Original) aspirin 81 mg delayed release oral tablet (20 sources) Platelet Aggregation Inhibitor, Nonsteroidal Anti-inflammatory Drug Start: 08-11-2021 take 1 tablet by mouth once daily Start: 09-23-2019 End: 03-24-2021 take 1 tablet by mouth once daily Aspirin 81 mg tablet,delayed release (DR/EC) Discontinued 81 mg PO DAILY January 27, 2021 12:00am March 24, 2021 2:57pm Start: 09-11-2013 take 1 tablet by carlitos th once daily ASPIRIN 81 MG TABS One tablet by mouth daily ASPIRIN [id number] Zaki Fry MD Start: 09-11-2013 take 1 tablet by carlitos th once daily ASPIRIN EC 81 MG TBEC One tablet by mouth daily ASPIRIN [id number] Shey Reardon RN Comment on above: Take 1 tablet by carlitos once daily. Completed/Discontinued Medications Medication Drug Class(es) Dates Sig (Normalized) Sig (Original) atorvastatin 80 mg oral tablet (20 sources) HMG-CoA Reductase Inhibitor Start: 09-05-2013 take 1 tablet by mouth once daily LIPITOR 10 MG TABS One tablet by mouth daily ATORVASTATIN CALCIUM [id number] Brandy Sumner RN Start: 06-12-2013 End: 11-21-2024 take 1 tablet by mouth at bedtime Atorvastatin 80 mg tablet Discontinued 80 mg PO AT BEDTIME 90 February 23, 2024 9:38am November 21, 2024 3:15pm Start: 06-11-2013 End: 06-12-2013 take 1 tablet by mouth once daily Atorvastatin 10 MG tablet Discontinued 10 mg PO DAILY June 11, 2013 12:00am June 12, 2013 3:02pm Comment on above: Take 1 tablet by [facility] once daily. hydroCHLOROthiazide 12.5 mg oral capsule (20 sources) Thiazide Diuretic Start: 2020 End: 2024 take 1 capsule by mouth once daily Hydrochlorothiazide 12.5 mg capsule Discontinued 12.5 mg PO DAILY February 23, 2024 9:38am November 21, 2024 3:15pm Start: 09-05-2013 [facility] HYDROCHLOROTHIAZIDE 25 MG TABS One tablet by mouth daily HYDROCHLOROTHIAZIDE [id number] Brandy Sumner RN Start: 09-05-2013 take 1 tablet by carlitos once daily HYDROCHLOROTHIAZIDE 12.5 MG TABS One tablet by mouth daily HYDROCHLOROTHIAZIDE [id number] Zaki Fry MD Comment on above: Take 1 capsule by [facility] once daily. lisinopril 10 mg oral tablet (20 sources) Angiotensin Converting Enzyme Inhibitor Start: 4 End: take 1 tablet by mouth once daily Lisinopril 10 mg tablet Discontinued 10 mg PO DAILY March 13, 2023 12:28pm Cristiane 16th, 2024 3:50pm Comment on above: Take 1 tablet by carlitos th once daily. losartan potassium 50 mg oral tablet (13 sources) Angiotensin 2 Receptor Gustabo Start: End: take 1 tablet by mouth once daily Losartan 50 mg tablet Discontinued 50 mg PO DAILY 90 3 November 15, 2024 10:23am November 21, 2024 3:15pm 24 hr metoprolol succinate 25 mg extended release oral tablet (20 sources) beta-Adrenergic Gustabo Start: 4 METOPROLOL TARTRATE 25 MG TABS one half pill twice a day METOPROLOL TARTRATE [id number] Willie Rivera [employer] Start: 06-12-2013 End: 11-21-2024 take 1 tablet by mouth once daily Metoprolol Succinate 25 mg tablet extended release 24 hr Discontinued 25 mg PO DAILY 90 February 23, 2024 9:38am November 21, 2024 3:15pm Comment on above: Take 1 tablet by carlitos th once daily. Problems Active Problems Problem Classification Problem Date Documented Date Episodic/Chronic Administrative/social admission (3 sources) First encounter by subject; Translations: [Persons encountering health services in other specified circumstances] 12-16-2024 Episodic Cardiac dysrhythmias (20 sources) Supraventricular tachycardia; Translations: [Supraventricular tachycardia] Onset: 02-09-2021 Chronic Cardiac dysrhythmias (8 sources) Palpitations; Translations: [Palpitations] Onset: 01-17-2025 08-14-2022 Episodic Coronary atherosclerosis and other heart disease (20 sources) Atherosclerotic heart disease of [place] coronary artery without angina pectoris; Translations: [Coronary arteriosclerosis] Onset: 06-25-2013 09-05-2013 Chronic Disorders of lipid metabolism (20 sources) Hyperlipidemia; Translations: [Hyperlipidemia, unspecified] Onset: 05-09-2012 09-05-2013 Chronic Essential hypertension (20 sources) Hypertensive disorder; Translations: [Benign essential hypertension] [...] Chronic Other nutritional; endocrine; and metabolic disorders (8 sources) Obesity; Translations: [Obesity, unspecified] 06-30-2022 Chronic Other screening for suspected conditions (not mental disorders or infectious disease) (14 sources) Other specified abnormal findings of blood chemistry; Translations: [Elevated liver function tests] Onset: 02-09-2021 03-24-2021 Episodic Residual codes; unclassified (2 sources) Chews tobacco ; Translations: [Tobacco use] 12-16-2024 Episodic Residual codes; unclassified (2 sources) Medication refused; Translations: [Immunization not carried out because of patient refusal] 12-16-2024 Episodic Screening and history of mental health and substance abuse codes (2 sources) Patient encounter status; Translations: [Encounter for screening for depression] 12-16-2024 Episodic Spondylosis; intervertebral disc disorders; other back problems (16 sources) Backache; Translations: [Dorsalgia, unspecified] Onset: 12-16-2024 03-24-2021 Episodic Substance-related disorders (8 sources) Nicotine dependence; Translations: [Nicotine dependence, chewing tobacco, uncomplicated] 03-24-2021 Chronic Unclassified (1 source) Encounter for screening for malignant neoplasm of colon Unclassified (4 sources) Z12.11 - Encounter for screening for malignant neoplasm of colon Unclassified (2 sources) Patient encounter status Viral infection (20 sources) COVID-19; Translations: [Severe acute respiratory syndrome [...] 09-05-2013 Episodic Other aftercare (2 sources) Other intermediate card tender (current) drug therapy; Translations: [Other nursing home (current) drug therapy] Onset: 10-16-2014 10-16-2014 Episodic [...] Test Name Value Interpretation Reference Range Facility NCS and/or EMG Patienton NCS and/or EMG Patient [facility] Pulmonary Services/Neurology [address] [place] [address] MR#: [id number] Acct: [id number] Name: JMIENA ADLER Rep #: [id number] : 1965 59 From: Salomón Peacock MD Referring Dr: Becki Larios MD Status: REG [facility] Location: [facility] Date: 02/05/25 Sex: M C NCS and/or EMG Patient Report Ordering Doctor: Becki Larios DATE OF SERVICE: 02/05/25 Jimena presents for electrodiagnostic testing of the left upper limb. He reports left-sided neck pain radiating down to the hand. Electrodiagnostic findings: Left median motor nerve demonstrates normal distal latency and amplitude with borderline reduced conduction velocity. Normal left ulnar motor response. Normal median and ulnar F???waves. Sensory responses are within normal limits. Needle EMG testing was performed in the left upper limb. 1+ fibrillations noted in the flexor carpi ulnaris, pronator teres and lower left cervical paraspinals. Motor unit action potentials are of normal amplitude and duration. Electrodiagnostic impression: This is an abnormal study. 1. Electrodiagnostic findings are consistent with an acute left C7 radiculopathy. Consider clinical correlation with cervical spine imaging. 2. No electrodiagnostic evidence is noted for peripheral neuropathy, including carpal tunnel or cubital tunnel syndrome. Multi Select Codes Neurology Neurology Interp Codes: 10134-04 Musc test done w/n test comp (interp) and 61940-94 Nrv cndj tst 5-6 studies (interp) 02/05/25 1444 Date Salomón Peacock MD CC: Dr. Becki Larios MD; Dr. Salomón Peacock MD Date Dictated: 02/05/251440 Date Transcribed: 02/05/251440 Stereo Operator: AA Signed Normal [facility] Basic Metabolic Profile (BMP )on 02-03-2025 BUN/CRE 17.8 RATIO Normal 10-20 [facility] Comment on above: Performed By: #### L 100.0100, L500.2500 #### [facility] [address] [place], [address] Calcium [Mass/Vol] 9.0 mg/dL Normal 7.6-11.0 [facility] Comment on above: Performed By: #### L 100.0100, L500.2500 #### [facility] [address] [place], [address] Chloride [Moles/Vol] 103 mmol/L Normal 98-[address] [facility] Comment on above: Performed By: #### L 100.0100, L500.2500 #### [facility] [address] [place], [address] CO2 [Moles/Vol] 25.9 mmol/L Normal 21.0-32.0 [facility] Comment on above: Performed By: #### L 100.0100, L500.2500 #### [facility] [address] [place], [address] Creatinine [Mass/Vol] 0.94 mg/dL Normal 0.70-1.20 [facility] Comment on above: Performed By: #### L 100.0100, L500.2500 #### [facility] [address] [place], [address] GAP 10 Normal 5-15 [facility] Comment on above: Performed By: #### L 100.0100, L500.2500 #### [facility] [address] [place], [address] GFR/1.73 sq M.predicted among non-blacks MDRD (S/P/Bld) [Vol rate/Area] 93 mL/min/{1.73_m2} Normal >60 [facility] Comment on above: Result Comment: mL/m in/1.73m2 CKD-EPI Creatinine Equation (2020) Performed By: #### L 100.0100, L500.2500 #### [facility] [address] [place], [address] Glucose [Mass/Vol] 144 mg/dL High 70-99 [facility] Comment on above: Performed By: #### L 100.0100, L500.2500 #### [facility] [address] [place], [address] Potassium [Moles/Vol] 4.2 mmol/L Normal 3.3-5.1 [facility] Comment on above: Performed By: #### L 100.0100, L500.2500 #### [facility] [address] [place], [address] Sodium [Moles/Vol] 140 mmol/L Normal 133-145 [facility] Comment on above: Performed By: #### L 100.0100, L500.2500 #### [facility] [address] [place], [address] Urea nitrogen [Mass/Vol] 17 mg/dL Normal 4-19 [facility] Comment on above: Performed By: #### L 100.0100, L500.2500 #### [facility] [address] [place], [address] CBC W/Diff, Automatedon 11-0 3-2025 Absolute Lymph 2.47 X10 3/uL Normal 0.83-4.51 [facility] Comment on above: Performed By: #### L 100.0100, L500.2500 #### [facility] [address] [place], [address] Absolute Neut 4.9 X10 3/uL Normal 2.0-7.7 [facility] Comment on above: Performed By: #### L 100.0100, L500.2500 #### [facility] [address] [place], [address] Basophils/100 WBC (Bld) 0.7 % Normal 0-1 [facility] Comment on above: Performed By: #### L 100.0100, L500.2500 #### [facility] [address] [place], [address] Eosinophils/100 WBC (Bld) 3.6 % Normal 0-5 [facility] Comment on above: Performed By: #### L 100.0100, L500.2500 #### [facility] [address] [place], [address] Erythrocyte distribution width (RBC) [Ratio] 12.9 % Normal 11.6-14.6 [facility] Comment on above: Performed By: #### L 100.0100, L500.2500 #### [facility] [address] [place], [address] Hematocrit (Bld) [Volume fraction] 46.0 % Normal 40-54 [facility] Comment on above: Performed By: #### L 100.0100, L500.2500 #### [facility] [address] [place], [address] Hemoglobin (Bld) [Mass/Vol] 15.4 g/dL Normal 13.0-16.5 [facility] Comment on above: Performed By: #### L 100.0100, L500.2500 #### [facility] [address] [place], [address] IG% 0.600 Normal 0.0-0.9 [facility] Comment on above: Result Comment: IG% - Immature Granulocytes (promyelocytes, myelocytes and metamyelocytes) > 1% indicates that a LEFT SHIFT is Present. Performed By: #### L 100.0100, L500.2500 #### [facility] [address] [place], [address] Lymphocytes/100 WBC (Bld) 29.3 % Normal 19-41 [facility] Comment on above: Performed By: #### L 100.0100, L500.2500 #### [facility] [address] [place], [address] MCH (RBC) [Entitic mass] 29.0 pg Normal 27.0-32.0 [facility] Comment on above: Performed By: #### L 100.0100, L500.2500 #### [facility] [address] [place], [address] MCHC (RBC) [Mass/Vol] 33.5 g/dL Normal 32-36 [facility] Comment on above: Performed By: #### L 100.0100, L500.2500 #### [facility] [address] [place], [address] MCV (RBC) [Entitic vol] 86.6 fL Normal 80-94 [facility] Comment on above: Performed By: #### L 100.0100, L500.2500 #### [facility] [address] [place], [address] Monocytes/100 WBC (Bld) 7.7 % Normal 0-10 [facility] Comment on above: Performed By: #### L 100.0100, L500.2500 #### [facility] [address] [place], [address] Neutrophils/100 WBC (Bld) 58.1 % Normal 47-70 [facility] Comment on above: Performed By: #### L 100.0100, L500.2500 #### [facility] [address] [place], [address] Nucleated RBC (Bld) [#/Vol] 0 10*3/uL Normal 0-5 [facility] Comment on above: Performed By: #### L 100.0100, L500.2500 #### [facility] [address] [place], [address] Platelet mean volume (Bld) [Entitic vol] 9.3 fL Normal 6.2-12.0 [facility] Comment on above: Performed By: #### L 100.0100, L500.2500 #### [facility] [address] [place], [address] Platelets (Bld) [#/Vol] 301 10*3/uL Normal 150-450 [facility] Comment on above: Performed By: #### L 100.0100, L500.2500 #### [facility] [address] [place], [address] RBC (Bld) [#/Vol] 5.31 10*6/uL Normal 4.6-6.2 [facility] Comment on above: Performed By: #### L 100.0100, L500.2500 #### [facility] [address] [place], [address] RDW SD 40.8 fl Normal 35.1-43.9 [facility] Comment on above: Performed By: #### L 100.0100, L500.2500 #### [facility] [address] [place], [address] WBC (Bld) [#/Vol] 8.4 10*3/uL Normal 4.4-11.0 [facility] Comment on above: Performed By: #### L 100.0100, L500.2500 #### [facility] [address] [place], [address] Chest PA and Lateralon 02-03 Chest PA and Lateral [facility] Imaging Services [address] [place] [address] Chest PA and Lateral MR#: [id number] Acct: [id number] Name: JIMENA ADLER Rep #: [id number] : 1965 M 59 From: Chay Fuller PCP: Dr. Becki Larios MD Status: PRE [facility] [place] Study: Chest PA and Lateral Date of Exam: 02/03/25 Exam# [id number] Ordering Dr: Lenora Lee PROCEDURE: CHEST PA AND LATERAL 02/03/2025 REASON FOR EXAM: PREPROCEDURE TECHNIQUE: Procedure Code: RADCXR Modality: DX Procedure: CHEST PA AND LATERAL COMPARISON: None. RAD/Chest PA and Lateral IMPRESSION: Lungs are somewhat hypoinflated, but appear clear of acute disease. No pleural effusion or pneumothorax is noted. The cardiomediastinal silhouette is within the normal range. Mild thoracic spine degenerative changes plus DISH also noted. No evidence of acute cardiopulmonary disease. Reading Location: [place] [address] CC: Dr. Becki Larios MD; YRIS Emerson Stereo Operator: Signed Normal [facility] Cardiology Visit Reporton Cardiology Visit Report [facility] [address] [place] [address] OFFICE VISIT Date of Service: 12/25/24 MR#: [id number] Acct: [id number] Name: JIMENA ADLER Rep #: [id number] : 1965 Provider: YRIS Morillo Age/Sex: 59/M Location[place] [facility] [place] [place] Status: Signed HPI HPI History of Present Illness Details: Jimena Adler is 59-year-old man with a history [...] mild coronary calcifications noted. He presented to [facility] Emergency Department on 08/14/2022 with palpitations. [...] any symptoms since then. 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 Required: No Accompanied by: Is patient in pain?: No Allergies lisinopril Allergy (Unknown, Verified 12/25/24 09:38) cough Medications ???Medication ???Instructions ???Recorded ???Confirmed ???Type aspirin 81 mg tablet,delayed 81 mg PO DAILY 08/11/21 12/25/24 H istory release (Adult Aspirin Regimen) atorvastatin 80 mg tablet 80 mg PO QHS #90 tabs 11/21/24 Rx hydrochlorothiazide 12.5 mg capsule 12.5 mg PO DAILY #90 caps 11/2112/25/24 Rx losartan 50 mg tablet 50 mg PO DAILY #90 tabs 11/21/24 0 12/25/24 Rx metoprolol succinate 25 mg 25 mg PO DAILY #90 TABLETS 5 12/25/24 Rx tablet,extended release 24 hr Ejection fraction %: 60 Have you fallen in the past year?: No PFSH Medical History Obesity Atherosclerotic heart disease of [place] coronary artery without angina pectoris Pneumonia due to 2019 novel coronavirus (02/09/21) Supraventricular tachycardia (02/09/21) COVID-19 virus detected (01/27/21) Hyperlipidemia Essential hypertension Surgical History S/P colonoscopy History of left heart catheterization (06/12/13) Family History Father CAD (coronary artery disease), Onset Age: 68 Myocardial infarction Grandfather CAD (coronary artery disease) Brother CAD (coronary artery disease), Onset Age: 69 Sister CAD (coronary artery disease), Onset Age: 75 Brother Heart valve disease Mother Dementia Social History adopted: No household members: spouse and children number of children: 2 current occupational status: employed current occupation: [employer] pets and animals: Yes (1) pets and animals: dog(s) sexually active: Yes Smoking Status: Never smoker Smokeless tobacco user: chewing tobacco how long ago did patient quit smoking: Quit for 1 year, wants to quit again quit status: has quit before alcohol intake: current alcohol intake frequency: a few times a month Alcohol type: beer details: < 3 in 1 sitting substance use type: does not use caffeine: Yes (1-2) Type: coffee frequency: 1-2 times per week do you feel safe at home: Yes ROS Const Const: Negative for fatigue or weakness Eyes Eyes: Negative for change in vision ENT ENT: Negative for dizziness or balance problems Cardio Chest Pain: No Palpitations: No Edema: Bilateral (Mild) Resp Respiratory: Negative for SOB with activity, SOB at rest or SOB orthopnea SOB lying down GI GI: Negative nausea or heartburn Musc Musc: Negative for balance problems Neuro Neuro: Negative for dizziness, lightheadedness, near syncope, syncope or weakness Endo Endo: Negative for fatigue Cardiology Exam Const Appearance: cooperative, healthy appearing, comfortable and no acute distress Nutritional Tobias (more content not included)... Normal [facility] Absolute lymphocyte countOrd ered By: Becki Larios on 12-17-2024 Lymphocytes Auto (Unsp spec) [#/Vol] 2.50 10*3/uL 0.83-4.51 [facility] Absolute neutrophil countOrd ered By: Becki Larios on 12-17-2024 Neutrophils (Bld) [#/Vol] 3.6 10*3/uL 2.0-7.7 [facility] Anion gap in Serum or Plasma Ordered By: Becki Larios on 12-17-2024 Anion gap [Moles/Vol] 12 mmol/L 5-15 [facility] Automated blood erythrocyte countOrdered By: Becki Larios on 12-17-2024 RBC (Bld) [#/Vol] 5.02 10*6/uL Normal 4.6-6.2 [facility] Comment on above: Performed By: #### L 500.4100, L500.4050, L501.9985, L100.0100 #### [facility] [address] [place], [place], [id number] Automated blood hematocrit ( percentage)Ordered By: Becki Larios on 12-17-2024 Hematocrit (Bld) [Volume fraction] 44.1 % Normal 40-54 [facility] Comment on above: Performed By: #### L 500.4100, L500.4050, L501.9985, L100.0100 #### [facility] [address] [place], [place], [id number] Automated lymphocyte count a s percentage of total leukocytesOrdered By: Becki Larios on 12-17-2024 Lymphocytes/100 WBC Auto (Unsp spec) 35.3 % 19-41 [facility] BUN/creatinine ratioOrdered By: Becki Larios on 12-17-2024 Urea nitrogen/Creatinine [Mass ratio] 16.7 mg/mg 10-20 [facility] Basophil percentageOrdered B y: Becki Larios on 12-17-2024 Basophils/100 WBC (Bld) 0.8 % Normal 0-1 [facility] Comment on above: Performed By: #### L 500.4100, L500.4050, L501.9985, L100.0100 #### [facility] [address] [place], [address] Bilirubin, totalOrdered By: Becki Larios on 12-17-2024 Bilirubin [Mass/Vol] 0.33 mg/dL Normal 0.00-1.[address] [facility] Comment on above: Performed By: #### L 500.4100, L500.4050, L501.9985, L100.0100 #### [facility] [address] [place], [address] CBC W/Diff, Automatedon 12-02 Absolute Lymph 2.50 X10 3/uL Normal 0.83-4.51 [facility] Comment on above: Performed By: #### L 500.4100, L500.4050, L501.9985, L100.0100 #### [facility] [address] [place], [address] Absolute Neut 3.6 X10 3/uL Normal 2.0-7.7 [facility] Comment on above: Performed By: #### L 500.4100, L500.4050, L501.9985, L100.0100 #### [facility] [address] [place], [address] IG% 0.400 Normal 0.0-0.9 [facility] Comment on above: Result Comment: IG% - Immature Granulocytes (promyelocytes, myelocytes and metamyelocytes) > 1% indicates that a LEFT SHIFT is Present. Performed By: #### L 500.4100, L500.4050, L501.9985, L100.0100 #### [facility] [address] [place], [address] Lymphocytes/100 WBC (Bld) 35.3 % Normal 19-41 [facility] Comment on above: Performed By: #### L 500.4100, L500.4050, L501.9985, L100.0100 #### [facility] [address] [place], [address] Nucleated RBC (Bld) [#/Vol] 0 10*3/uL Normal 0-5 [facility] Comment on above: Performed By: #### L 500.4100, L500.4050, L501.9985, L100.0100 #### [facility] [address] [place], [address] RDW SD 42.0 fl Normal 35.1-43.9 [facility] Comment on above: Performed By: #### L 500.4100, L500.4050, L501.9985, L100.0100 #### [facility] [address] [place], [address] Calculated very low density lipoprotein (VLDL) cholesterol measurementOrdered By: Becki Larios on 12-17-2024 Calculated very low density lipoprotein (VLDL) cholesterol measurement 22 mg/dL 5-40 [facility] Carbon dioxide, total [Moles /volume] in Central venous bloodOrdered By: Becki Larios on 12-17-2024 CO2 [Moles/Vol] 24.5 mmol/L Normal 21.0-32.0 [facility] Comment on above: Performed By: #### L 500.4100, L500.4050, L501.9985, L100.0100 #### [facility] [address] [place], [address] Chloride assayOrdered By: Usman Larios on 12-17-2024 Chloride [Moles/Vol] 106 mmol/L Normal 98-[address] [facility] Comment on above: Performed By: #### L 500.4100, L500.4050, L501.9985, L100.0100 #### [facility] [address] [place], [address] Comprehensive Metabolic Prof ilon 12-17-2024 ALK PHOS 86 U/L Normal 40-129 [facility] Comment on above: Performed By: #### L 500.4100, L500.4050, L501.9985, L100.0100 #### [facility] [address] [place], [address] BUN/CRE 16.7 RATIO Normal 10-20 [facility] Comment on above: Performed By: #### L 500.4100, L500.4050, L501.9985, L100.0100 #### [facility] [address] [place], [address] GAP 12 Normal 5-15 [facility] Comment on above: Performed By: #### L 500.4100, L500.4050, L501.9985, L100.0100 #### [facility] [address] [place], [address] Potassium [Moles/Vol] 4.3 mmol/L Normal 3.3-5.1 [facility] Comment on above: Result Comment: Hemo lysis present, Results??could be affected. ?? Performed By: #### L 500.4100, L500.4050, L501.9985, L100.0100 #### [facility] [address] [place], [address] T PROT 6.9 g/dL Normal 5.9-8.4 [facility] Comment on above: Performed By: #### L 500.4100, L500.4050, L501.9985, L100.0100 #### [facility] [address] [place], [place], [address] Comprehensive Metabolic Prof ilOrdered By: Becki Larios on 12-17-2024 AST [Catalytic activity/Vol] 38 U/L Normal <=37 [facility] Comment on above: Performed By: #### L 500.4100, L500.4050, L501.9985, L100.0100 #### [facility] [address] [place], [address] Eosinophil percentageOrdered By: Becki Larios on 12-17-2024 Eosinophils/100 WBC (Bld) 4.9 % Normal 0-5 [facility] Comment on above: Performed By: #### L 500.4100, L500.4050, L501.9985, L100.0100 #### [facility] [address] [place], [address] Erythrocyte distribution wid th ratioOrdered By: Becki Larios on 12-17-2024 Erythrocyte distribution width (RBC) [Ratio] 13.1 % Normal 11.6-14.6 [facility] Comment on above: Performed By: #### L 500.4100, L500.4050, L501.9985, L100.0100 #### [facility] [address] [place], [address] Erythrocyte distribution wid th standard deviationOrdered By: Becki Larios on 12-17-2024 Erythrocyte distribution width (RBC) [Ratio] 42.0 fl 35.1-43.9 [facility] Glomerular filtration rate ( GFR) estimation/1.73 sq m using serum, plasma, or whole bOrdered By: Becki Larios on 12-17-2024 GFR/1.73 sq M.predicted among non-blacks MDRD (S/P/Bld) [Vol rate/Area] 89 mL/min/{1.73_m2} Normal >60 [facility] Comment on above: mL/min/1.73m2 CKD-EP I Creatinine Equation (2020) Result Comment: mL/m in/1.73m2 CKD-EPI Creatinine Equation (2020) Performed By: #### L 500.4100, L500.4050, L501.9985, L100.0100 #### [facility] [address] [place], [address] Hemoglobin A1c percentageOrd ered By: Becki Larios on 12-17-2024 HbA1c (Bld) [Mass fraction] 7.1 % High <=5.6 [facility] Comment on above: Normal < 5.7 % Predi abetic 5.7 - 6.4 % Diabetic >or= 6.5 % Please note range changes. Order Comment: RAUL Toth ADD A1C TO BLOOD DRAWN THIS AM Result Comment: Norm al < 5.7 % Prediabetic 5.7 - 6.4 % Diabetic >or= 6.5 % Please note range changes. Performed By: #### L 500.4100, L500.4050, L501.9985, L100.0100 #### [facility] [address] [place], [address] Hemoglobin measurementOrdere d By: Becki Larios on 12-17-2024 Hemoglobin (Bld) [Mass/Vol] 14.7 g/dL Normal 13.0-16.5 [facility] Comment on above: Performed By: #### L 500.4100, L500.4050, L501.9985, L100.0100 #### [facility] [address] [place], [address] Immature granulocytes/100 WB C Auto (Bld)Ordered By: Becki Larios on 12-17-2024 Immature granulocytes/100 WBC (Bld) 0.400 % 0.0-0.9 [facility] Comment on above: IG% - Immature Granu locytes (promyelocytes, myelocytes and metamyelocytes) > 1% indicates that a LEFT SHIFT is Present. LDL calc ser/plasOrdered By: Becki Larios on 12-17-2024 Cholesterol in LDL [Mass/Vol] 82 mg/dL Normal [facility] Comment on above: Kehcwvdvhy=700-255 m g/dL & Higher Yxdl=635 mg/dL or greaterFriedwald Equation for LDL-C Result Comment: Bord dackcq=132-094 mg/dL Higher Xqnv=617 mg/dL or greater Friedwald Equation for LDL-C Performed By: #### L 500.4100, L500.4050, L501.9985, L100.0100 #### [facility] [address] [place], [address] Lipid Profileon 12-17-2024 CHOL:HDL 5.[address] [facility] Comment on above: Performed By: #### L 500.4100, L500.4050, L501.9985, L100.0100 #### [facility] [address] [place], [address] Cholesterol in VLDL [Mass/Vol] 22 mg/dL Normal 5-40 [facility] Comment on above: Performed By: #### L 500.4100, L500.4050, L501.9985, L100.0100 #### [facility] [address] [place], [address] MCV (mean corpuscular volume ) determinationOrdered By: Becki Larios on 12-17-2024 MCV (RBC) [Entitic vol] 87.8 fL Normal 80-94 [facility] Comment on above: Performed By: #### L 500.4100, L500.4050, L501.9985, L100.0100 #### [facility] [address] [place], [address] Mean corpuscular hemoglobin (MCH) determinationOrdered By: Becki Larios on 12-17-2024 MCH (RBC) [Entitic mass] 29.3 pg Normal 27.0-32.0 [facility] Comment on above: Performed By: #### L 500.4100, L500.4050, L501.9985, L100.0100 #### [facility] [address] [place], [address] Mean corpuscular hemoglobin concentration (MCHC) determinationOrdered By: Becki Harriet on 12-17-2024 MCHC (RBC) [Mass/Vol] 33.3 g/dL Normal 32-36 [facility] Comment on above: Performed By: #### L 500.4100, L500.4050, L501.9985, L100.0100 #### [facility] [address] [place], [address] Mean platelet volume determi nationOrdered By: Becki Harriet on 12-17-2024 Platelet mean volume (Bld) [Entitic vol] 10.0 fL Normal 6.2-12.0 [facility] Comment on above: Performed By: #### L 500.4100, L500.4050, L501.9985, L100.0100 #### [facility] [address] [place], [address] Monocyte percentageOrdered B y: Becki [place] on 12-17-2024 Monocytes/100 WBC (Bld) 7.9 % Normal 0-10 [facility] Comment on above: Performed By: #### L 500.4100, L500.4050, L501.9985, L100.0100 #### [facility] [address] [place], [address] Neutrophil percentageOrdered By: Becki [place] on 12-17-2024 Neutrophils/100 WBC (Bld) 50.7 % Normal 47-70 [facility] Comment on above: Performed By: #### L 500.4100, L500.4050, L501.9985, L100.0100 #### [facility] [address] [place], [address] Nucleated red blood cell per centageOrdered By: Becki Larios on 12-17-2024 Nucleated RBC/100 WBC (Bld) [Ratio] 0 % 0-5 [facility] Platelet countOrdered By: Usman Larios on 12-17-2024 Platelets (Bld) [#/Vol] 256 10*3/uL Normal 150-450 [facility] Comment on above: Performed By: #### L 500.4100, L500.4050, L501.9985, L100.0100 #### [facility] [address] [place], [address] Potassium measurement (mass/ volume)Ordered By: Becki Larios on 12-17-2024 Potassium (Unsp spec) [Mass/Vol] 4.3 mmol/L 3.3-5.1 [facility] Comment on above: Hemolysis present, R esults could be affected. Screening total cholesterol/ high density lipoprotein (HDL) cholesterol ratioOrdered By: Becki Larios on 12-17-2024 Cholesterol.total/Choles terol in HDL [Mass ratio] 5.18 {ratio} [facility] Serum creatinine measurement (mass/volume)Ordered By: Becki Larios on 12-17-2024 Creatinine [Mass/Vol] 0.98 mg/dL Normal 0.70-1.20 [facility] Comment on above: Performed By: #### L 500.4100, L500.4050, L501.9985, L100.0100 #### [facility] [address] [place], [address] Serum globulin measurementOr dered By: Becki Larios on 12-17-2024 Globulin (S) [Mass/Vol] 2.7 g/dL Normal 2.2-4.2 [facility] Comment on above: Performed By: #### L 500.4100, L500.4050, L501.9985, L100.0100 #### [facility] [address] [place], [address] Serum glucose measurement (m ass/volume)Ordered By: Becki Larios on 12-17-2024 Glucose [Mass/Vol] 130 mg/dL High 70-99 [facility] Comment on above: Performed By: #### L 500.4100, L500.4050, L501.9985, L100.0100 #### [facility] [address] [place], [address] Serum or plasma alanine maxwell otransferase (ALT) measurementOrdered By: Becki Larios on 12-17-2024 ALT [Catalytic activity/Vol] 79 U/L High <=46 [facility] Comment on above: Performed By: #### L 500.4100, L500.4050, L501.9985, L100.0100 #### [facility] [address] [place], [address] Serum or plasma albumin igor urement (mass/volume)Ordered By: Becki Larios on 12-17-2024 Albumin [Mass/Vol] 4.2 g/dL Normal 3.4-4.8 [facility] Comment on above: Performed By: #### L 500.4100, L500.4050, L501.9985, L100.0100 #### [facility] [address] [place], [address] Serum or plasma albumin/glob ulin mass ratioOrdered By: Becki Larios on 12-17-2024 Albumin/Globulin [Mass ratio] 1.6 {ratio} Normal 0.9-2.4 [facility] Comment on above: Performed By: #### L 500.4100, L500.4050, L501.9985, L100.0100 #### [facility] [address] [place], [address] Serum or plasma alkaline chanel sphatase measurementOrdered By: Becki Larios on 12-17-2024 ALP [Catalytic activity/Vol] 86 U/L 40-129 [facility] Serum or plasma calcium igor urement (mass/volume)Ordered By: Becki Larios on 12-17-2024 Calcium [Mass/Vol] 9.6 mg/dL Normal 7.6-11.0 [facility] Comment on above: Performed By: #### L 500.4100, L500.4050, L501.9985, L100.0100 #### [facility] [address] [place], [place], [address] Serum or plasma cholesterol in HDL measurement (mass/volume)Ordered By: Becki Larios on 12-17-2024 Cholesterol in HDL [Mass/Vol] 25 mg/dL Low [facility] Comment on above: National Cholesterol Education Program (NCEP) guidelines:<40 mg/dL: Low HDL-cholesterol (major risk factor for CHD)>= 60 mg/dL: High HDL-cholesterol (negative risk factor for CHD)HDL-cholesterol is affected by a number of factors, e.g. smoking, exercise, hormones, sex and age. Result Comment: Marcella onal Cholesterol Education Program (NCEP) guidelines: <40 mg/dL: Low HDL-cholesterol (major risk factor for CHD) >= 60 mg/dL: High HDL-cholesterol (negative risk factor for CHD) HDL-cholesterol is affected by a number of factors, e.g. smoking, exercise, hormones, sex and age. Performed By: #### L 500.4100, L500.4050, L501.9985, L100.0100 #### [facility] [address] [place], [place], [address] Serum or plasma cholesterol measurement (mass/volume)Ordered By: Becki Larios on 12-17-2024 Cholesterol [Mass/Vol] 129 mg/dL Normal <=200 [facility] Comment on above: Cholesterol level, D esirable <200 mg/dLBorderline high cholesterol 200-239 mg/dLHigh cholesterol >=240 mg/dLRecommendations of the NCEP Adult Treatment Panel for the following risk-cutoff thresholds for the [place] population. Result Comment: Chol esterol level, Desirable <200 mg/dL Borderline high cholesterol 200-239 mg/dL High cholesterol >=240 mg/dL Recommendations of the NCEP Adult Treatment Panel for the following risk-cutoff thresholds for the [place] population. Performed By: #### L 500.4100, L500.4050, L501.9985, L100.0100 #### [facility] [address] [place], [address] Serum or plasma urea nitroge n measurement (mass/volume)Ordered By: Becki Larios on 12-17-2024 Urea nitrogen [Mass/Vol] 16 mg/dL Normal 4-19 [facility] Comment on above: Performed By: #### L 500.4100, L500.4050, L501.9985, L100.0100 #### [facility] [address] [place], [address] Sodium levelOrdered By: Nicol Larios on 12-17-2024 Sodium [Moles/Vol] 142 mmol/L Normal 133-145 [facility] Comment on above: Performed By: #### L 500.4100, L500.4050, L501.9985, L100.0100 #### [facility] [address] [place], [address] Total proteinOrdered By: Wiley Larios on 12-17-2024 Protein [Mass/Vol] 6.9 g/dL 5.9-8.4 [facility] Triglycerides measurementOrd ered By: Becki Lairos on 12-17-2024 Triglyceride [Mass/Vol] 110 mg/dL Normal [facility] Comment on above: The drugs N-Acetylcy steine and Metamizole may falsely depress this assay. Normal range: <150 mg/dLBorderline High: 150-199 mg/dLHigh: 200-499 mg/dLVery High: >500 mg/dL Result Comment: The drugs N-Acetylcysteine and Metamizole may falsely depress this assay. Normal range: <150 mg/dL Borderline High: 150-199 mg/dL High: 200-499 mg/dL Very High: >500 mg/dL Performed By: #### L 500.4100, L500.4050, L501.9985, L100.0100 #### [facility] [address] [place], [address] White blood cell (WBC) count Ordered By: Becki Larios on 12-17-2024 WBC (Bld) [#/Vol] 7.1 10*3/uL Normal 4.4-11.0 [facility] Comment on above: Performed By: #### L 500.4100, L500.4050, L501.9985, L100.0100 #### [facility] [address] [place], [place], [address] Internal Medicine Office Vis iton 12-12-2024 Internal Medicine Office Visit [facility] [address] [place], [place] [address] OFFICE VISIT Date of Service: 12/16/24 MR#: [id number] Acct: [id number] Name: JIMENA ADLER Rep #: [id number] : 1965 Provider: Dr. Becki diego MD Age/Sex: 59/M Location[place] [facility] Status: Signed Intake Vital Signs 12/18/23 15:24 08 09:25 12/16/24 14:19 12/16/24 17:34 Height 6 ft 1 in 6 ft 1 in 6 ft 1 in Weight: 259 lb BMI 34.2 BP 162/94 H 142/80 H Blood Pressure Location Lt brachial Position Sitting Respiration 18 Pulse 78 Pulse Source Monitor Temp 98.9 F Temp Source Temporal Pulse Oximetry (%) 98 Oxygen Delivery Method room air Intake Visit Reasons: EST CARE-PPW GIVEN Water Safety Instructor Required: No Is patient in pain?: Yes (Neck) Pain scale (1-10): 3 Allergies lisinopril Allergy (Unknown, Verified 12/16/24 14:00) cough Medications ???Medication ???Instructions ???Recorded ???Confirmed ???Type aspirin 81 mg tablet,delayed 81 mg PO DAILY 08/11/21 12/16/24 H istory release (Adult Aspirin Regimen) atorvastatin 80 mg tablet 80 mg PO QHS #90 tabs 11/21/24 Rx hydrochlorothiazide 12.5 mg capsule 12.5 mg PO DAILY #90 caps 11/2112/16/24 Rx losartan 50 mg tablet 50 mg PO DAILY #90 tabs 11/21/24 0 12/16/24 Rx metoprolol succinate 25 mg 25 mg PO DAILY #90 TABLETS 5 12/16/24 Rx tablet,extended release 24 hr Nurse's Note: Pt has correspondance w/ [facility]. Pt's previous pcp was [facility], so he has not seen a pcp in [facility]. Pt states for a month or so he has had neck pain, if he moves his L arm above his head or the wrong way it tingles down the arm to the finger. The intensity has not changed, it is described as stiff, and has been creaking and popping. this has occured w/o any known injury. Pt states it hurts all the time. States if he lays down a certain way it doesn't hurt. Pt has not tried any home remedies besides icy hot which did not work. Pt denies, dropping things, or loss of sensation in L arm. Pt is able to do ROM, when he moves his head L to R it gives a pulling sensation Pt states at the worst amount of pain it is a 7/10, and is typicallyat a 3/10 as it is today sitting there. Pt declines flu vaccine. [facility] Medical History Obesity Atherosclerotic heart disease of [place] coronary artery without angina pectoris Pneumonia due to 2019 novel coronavirus (02/09/21) Supraventricular tachycardia (02/09/21) COVID-19 virus detected (01/27/21) Hyperlipidemia Essential hypertension Surgical History S/P colonoscopy History of left heart catheterization (06/12/13) Family History (Updated 12/16/24 @ 14:[address] Becki Larios MD) Father CAD (coronary artery disease), Onset Age: 68 Myocardial infarction Grandfather CAD (coronary artery disease) Brother CAD (coronary artery disease), Onset Age: 69 Sister CAD (coronary artery disease), Onset Age: 75 Brother Heart valve disease Mother Dementia Social History (Updated 12/16/24 @ 14:[address] 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 pets and animals: Yes (1) pets and animals: dog(s) sexually active: Yes Smoking Status: Never smoker Smokeless tobacco user: chewing tobacco how long ago did patient quit smoking: Quit for 1 year, wants to quit again quit status: has quit before alcohol intake: current alcohol intake frequency: a few times a month Alcohol type: beer details: < 3 in 1 sitting substance use type: does not use caffeine: Yes (1-2) Type: coffee frequency: 1-2 times per week do you feel safe at home: Yes Questionnaire PQH-9 BMS Over the last 2 weeks, how often have you been bothered by any of the following problems? 1. Little interest or pleasure in doing things: not at all 2. Feeling down, depressed, or hopeless: not at all 3. Trouble falling or staying asleep, or sleeping too much: several days 4. Feeling tired or having little energy: several days 5. Poor appetite or overeating: not at all 6. Feeling bad about yourself - or that you are a failure or have let yourself and your family down: not at all 7. Trouble concentrating on things, such as reading the newspaper or watching television: not at all 8. Moving or speaking so slowly that other people could have noticed? - Or the opposite - being so fidgety or restless that you have been moving around a lot more than usual: not at all 9. Thoughts that you would be better off or of hurting yourself in some way: not at all Total score: 2 If you checked off any problems, how difficult have these problems made it for you t (more content not included)... Normal [facility] Cardiology Visit Reporton Cardiology Visit Report [facility] [address] [place] [address] OFFICE VISIT Date of Service: 11/21/24 MR#: [id number] Acct: [id number] Name: JIMENA ADLER Rep #: [id number] : 1965 Provider: YRIS Morillo Age/Sex: 59/M Location[place] [facility] Status: Signed HPI HPI History of Present Illness Details: Jimena Adler is 59-year-old man with a history [...] mild coronary calcifications noted. He presented to [facility] Emergency Department on 08/14/2022 with palpitations. [...] Oximetry (%) 95 Intake Visit Reasons: S/P [facility] 11/13 Water Safety Instructor Required: No Is patient in pain?: No [...] you fallen in the past year?: No PFSH Medical History Obesity Atherosclerotic heart disease of [place] coronary artery without angina pectoris Pneumonia due [...] Chest i (more content not included)... Normal [facility] Emergency Department Summary on 11-13-2024 Emergency Department Summary [facility] Medical Records Department [address] [place] [address] Emergency Department Summary 11/13/24 MR#: [id number] Acct: [id number] Name: JIMENA ADLER Rep #: [id number] : 1965 59 From: Tami Vázquez MD [...] Endorses some mild lightheadedness but no dizziness. [facility] Medical History Obesity Atherosclerotic heart disease of [place] coronary artery without angina pectoris Pneumonia due [...] pads. Respiratory (more content not included)... Normal [facility] Absolute lymphocyte countOrd ered By: Lui Lofton on 01-13-2023 Lymphocytes Auto (Unsp spec) [#/Vol] 2.34 10*3/uL 0.83-4.51 [facility] Basophil percentageOrdered B y: Lui Kirsty on 01-13-2023 Basophils/100 WBC (Bld) 1.1 % 0-1 [facility] Chloride [Moles/Vol] 108 mmol/L 98-[address] [facility] Eosinophils/100 WBC (Bld) 6.4 % 0-5 [facility] Glucose [Mass/Vol] 120 mg/dL 74-106 [facility] Comment on above: Fasting Glucose resu lt from 100 to 125 mg/dL suggests IMPAIRED HOMEOSTASIS per A.D.A. criteria. Neutrophils (Bld) [#/Vol] 3.6 10*3/uL 2.0-7.7 [facility] Neutrophils/100 WBC (Bld) 51.7 % 47-70 [facility] Potassium [Moles/Vol] 4.2 mmol/L 3.5-5.1 [facility] Sodium [Moles/Vol] 142 mmol/L 136-145 [facility] WBC (Bld) [#/Vol] 7.0 10*3/uL 4.4-11.0 [facility] Blood erythrocytes count (nu mber/volume)Ordered By: Lui Lofton on 01-13-2023 RBC (Bld) [#/Vol] 4.96 10*6/uL 4.6-6.2 [facility] Blood hemoglobin measurement (mass/volume)Ordered By: Lui Lofton on 01-13-2023 Hemoglobin (Bld) [Mass/Vol] 14.2 g/dL 13.0-16.5 [facility] Blood lymphocytes/100 leukoc ytesOrdered By: Lui Lofton on 01-13-2023 Lymphocytes/100 WBC (Bld) 33.3 % 19-41 [facility] Blood monocytes/100 leukocyt esOrdered By: Lui Lofton on 01-13-2023 Monocytes/100 WBC (Bld) 7.1 % 0-10 [facility] Blood platelet mean volumeOr dered By: Lui Lofton on 01-13-2023 Platelet mean volume (Bld) [Entitic vol] 9.6 fL 6.2-12.0 [facility] Determination of erythrocyte mean corpuscular volume (MCV)Ordered By: Lui Lofton on 01-13-2023 MCV (RBC) [Entitic vol] 89.1 fL 80-94 [facility] Hematocrit Auto (Bld) [Volum e fraction]Ordered By: Lui Lofton on 01-13-2023 Hematocrit (Bld) [Volume fraction] 44.2 % 40-54 [facility] - Chemistry and C hemistry - challengeOrdered By: Lui Lofton on 01-13-2023 CO2 [Moles/Vol] 30.0 mmol/L 21.0-32.0 [facility] Urea nitrogen/Creatinine [Mass ratio] 17.5 mg/mg 10-20 [facility] - Hematology and Cell countsOrdered By: Lui Lofton on 01-13-2023 Erythrocyte distribution width (RBC) [Entitic vol] 42.5 fL 35.1-43.9 [facility] Erythrocyte distribution width (RBC) [Ratio] 13.0 % 11.6-14.6 [facility] Immature granulocytes/100 WBC (Bld) 0.400 % 0.0-0.9 [facility] Comment on above: IG% - Immature Granu locytes (promyelocytes, myelocytes and metamyelocytes) > 1% indicates that a LEFT SHIFT is Present. MCH (RBC) [Entitic mass] 28.6 pg 27.0-32.0 [facility] Nucleated RBC/100 WBC (Bld) [Ratio] 0 % 0-5 [facility] MCHC Auto (RBC) [Mass/Vol]Or dered By: Lui Lofton on 01-13-2023 MCHC (RBC) [Mass/Vol] 32.1 g/dL 32-36 [facility] No Panel InformationOrdered By: Lui Lofton on 01-13-2023 Estimated GFR (MDRD) Amer 95 mL/min >60 [facility] Comment on above: GFR Calc Estimated GFR (MDRD) Non-Af Amer 79 mL/min >60 [facility] Comment on above: Non- GFR Calc Platelets bldOrdered By: Gabriel Lofton on 01-13-2023 Platelets (Bld) [#/Vol] 258 10*3/uL 150-450 [facility] Serum or plasma calcium igor urement (mass/volume)Ordered By: Lui Lofton on 01-13-2023 Calcium [Mass/Vol] 8.7 mg/dL 8.5-10.1 [facility] Serum or plasma creatinine m easurement (mass/volume)Ordered By: Lui Lofton on 01-13-2023 Creatinine [Mass/Vol] 1.03 mg/dL 0.70-1.30 [facility] Comment on above: The validity of the calculated GFR & GFRAA in patients over 70 years has not been determined. Clinical correlation is essential. Serum or plasma urea nitroge n measurement (mass/volume)Ordered By: Lui Lofton on 01-13-2023 Urea nitrogen [Mass/Vol] 18 mg/dL 7-18 [facility] Thin prep Papanicolaou smear with manual screeningOrdered By: Lui Lofton on 01-13-2023 Thin prep Papanicolaou smear with manual screening 4 5-15 [facility] Basophil percentageOrdered B y: Lenora Lee on 11-17-2022 Bilirubin [Mass/Vol] 0.70 mg/dL 0.20-1.[address] [facility] Comment on above: For patients on eltr ombopag therapy, use of [employer] TBIL is not recommended. Cholesterol [Mass/Vol] 146 mg/dL <200 [facility] Comment on above: <200 mg/dL Desirable 200-240 mg/dL Borderline >240 mg/dL High Risk Protein [Mass/Vol] 7.2 g/dL 6.4-8.2 [facility] Triglyceride [Mass/Vol] 103 mg/dL <199 [facility] Comment on above: The drugs N-Acetylcy steine and Metamizole may falsely depress this assay.Serum Triglycerides Reference Interval Normal <150 mg/dL Borderline high 150 - 199 mg/dL High 200 - 499 mg/dL Very High > or = 500 mg/dL Direct bilirubinOrdered By: Lenora Lee on 11-17-2022 Bilirubin.direct [Mass/Vol] 0.14 mg/dL 0.00-0.30 [facility] Laboratory - Chemistry and C hemistry - challengeOrdered By: Lneora Lee on 11-17-2022 ALP [Catalytic activity/Vol] 85 U/L 45-117 [facility] ALT [Catalytic activity/Vol] 72 U/L 16-61 [facility] Globulin (S) [Mass/Vol] 3.4 g/dL 2.2-4.2 [facility] Serum or plasma albumin igor urement (mass/volume)Ordered By: Lenora Lee on 11-17-2022 Albumin [Mass/Vol] 3.8 g/dL 3.2-5.0 [facility] Serum or plasma cholesterol in HDL measurement (mass/volume)Ordered By: Lenora Lee on 11-17-2022 Cholesterol in HDL [Mass/Vol] 32 mg/dL >40 [facility] Comment on above: The drugs N-Acetylcy steine and Metamizole may falsely depress this assay. Reference Range HDL <40 mg/dL Low HDL Cholesterol HDL >or= 60 mg/dL High HDL Cholesterol Serum or plasma cholesterol in VLDL measurement (mass/volume)Ordered By: Lenora Lee on 11-17-2022 Cholesterol in VLDL [Mass/Vol] 21 mg/dL 5-40 [facility] Serum or plasma low density lipoprotein (LDL) cholesterol measurement (mass/volume)Ordered By: Lenora Lee on 11-17-2022 Cholesterol in LDL [Mass/Vol] 93 mg/dL 0-130 [facility] Thin prep Papanicolaou smear with manual screeningOrdered By: Lenora Lee on 11-17-2022 Thin prep Papanicolaou smear with manual screening 24 U/L 15-37 [facility] Absolute lymphocyte countOrd ered By: Dr. Hernandez on 08-14-2022 Lymphocytes Auto (Unsp spec) [#/Vol] 2.05 10*3/uL 0.83-4.51 [facility] Basophil percentageOrdered B y: Dr. Hernandez on 08-14-2022 Basophils/100 WBC (Bld) 0.8 % 0-1 [facility] Chloride [Moles/Vol] 106 mmol/L 98-[address] [facility] Eosinophils/100 WBC (Bld) 3.9 % 0-5 [facility] Glucose [Mass/Vol] 140 mg/dL 74-106 [facility] Comment on above: Fasting Glucose resu lt greater than or equal to 126 mg/dL suggests DIABETES MELLITUS per A.D.A. criteria. Neutrophils (Bld) [#/Vol] 4.9 10*3/uL 2.0-7.7 [facility] Neutrophils/100 WBC (Bld) 62.2 % 47-70 [facility] Potassium [Moles/Vol] 3.6 mmol/L 3.5-5.1 [facility] Sodium [Moles/Vol] 140 mmol/L 136-145 [facility] WBC (Bld) [#/Vol] 7.9 10*3/uL 4.4-11.0 [facility] Blood erythrocytes count (nu mber/volume)Ordered By: Dr. Hernandez on 08-14-2022 RBC (Bld) [#/Vol] 5.04 10*6/uL 4.6-6.2 [facility] Blood hemoglobin measurement (mass/volume)Ordered By: Dr. Hernandez on 08-14-2022 Hemoglobin (Bld) [Mass/Vol] 14.5 g/dL 13.0-16.5 [facility] Blood lymphocytes/100 leukoc ytesOrdered By: Dr. Hernandez on 08-14-2022 Lymphocytes/100 WBC (Bld) 26.1 % 19-41 [facility] Blood monocytes/100 leukocyt esOrdered By: Dr. Hernandez on 08-14-2022 Monocytes/100 WBC (Bld) 6.9 % 0-10 [facility] Blood platelet mean volumeOr dered By: Dr. Hernandez on 08-14-2022 Platelet mean volume (Bld) [Entitic vol] 10.2 fL 6.2-12.0 [facility] Determination of erythrocyte mean corpuscular volume (MCV)Ordered By: Dr. Hernandez on 08-14-2022 MCV (RBC) [Entitic vol] 88.7 fL 80-94 [facility] Hematocrit Auto (Bld) [Volum e fraction]Ordered By: Dr. Hernandez on 08-14-2022 Hematocrit (Bld) [Volume fraction] 44.7 % 40-54 [facility] Laboratory - Chemistry and C hemistry - challengeOrdered By: Dr. Hernandez on 08-14-2022 CO2 [Moles/Vol] 26.0 mmol/L 21.0-32.0 [facility] Natriuretic peptide B (Bld) [Mass/Vol] 42.8 pg/mL 0-100 [facility] Urea nitrogen/Creatinine [Mass ratio] 19.1 mg/mg 10-20 [facility] Laboratory - Hematology and Cell countsOrdered By: Dr. Hernandez on 08-14-2022 Erythrocyte distribution width (RBC) [Entitic vol] 43.0 fL 35.1-43.9 [facility] Erythrocyte distribution width (RBC) [Ratio] 13.2 % 11.6-14.6 [facility] Immature granulocytes/100 WBC (Bld) 0.100 % 0.0-0.9 [facility] Comment on above: IG% - Immature Granu locytes (promyelocytes, myelocytes and metamyelocytes) > 1% indicates that a LEFT SHIFT is Present. MCH (RBC) [Entitic mass] 28.8 pg 27.0-32.0 [facility] Nucleated RBC/100 WBC (Bld) [Ratio] 0 % 0-5 [facility] MCHC Auto (RBC) [Mass/Vol]Or dered By: Dr. eHrnandez on 05-14-2023 MCHC (RBC) [Mass/Vol] 32.4 g/dL 32-36 [facility] No Panel InformationOrdered By: Dr. Hernandez on 08-14-2022 Estimated Creatinine Clearance Calc 91.92 ml/min [facility] Estimated GFR (MDRD) Amer 99 mL/min >60 [facility] Comment on above: GFR Calc Estimated GFR (MDRD) Non-Af Amer 82 mL/min >60 [facility] Comment on above: Non- GFR Calc Thyroid Stimulating Hormone (TSH) 1.15 uIU/mL 0.358-3.74 [facility] Troponin I High Sensitivity 5 pg/mL 3.0-78.0 [facility] Comment on above: Please Note: New Claudia t Units and Gender Specific Reference Ranges. For more information see Policy Stat Procedure Media High Sensitivity Troponin (TNIH) and attachments. Platelets bldOrdered By: Dr. Hernandez on 08-14-2022 Platelets (Bld) [#/Vol] 227 10*3/uL 150-450 [facility] Serum or plasma calcium igor urement (mass/volume)Ordered By: Dr. Hernandez on 08-14-2022 Calcium [Mass/Vol] 9.1 mg/dL 8.5-10.1 [facility] Serum or plasma creatinine m easurement (mass/volume)Ordered By: Dr. Hernandez on 08-14-2022 Creatinine [Mass/Vol] 0.99 mg/dL 0.70-1.30 [facility] Comment on above: The validity of the calculated GFR & GFRAA in patients over 70 years has not been determined. Clinical correlation is essential. Serum or plasma urea nitroge n measurement (mass/volume)Ordered By: Dr. Hernandez on 08-14-2022 Urea nitrogen [Mass/Vol] 19 mg/dL 7-18 [facility] Thin prep Papanicolaou smear with manual screeningOrdered By: Dr. Hernandez on 08-14-2022 Thin prep Papanicolaou smear with manual screening 8 5-15 [facility] Basophil percentageOrdered B y: Dr. Valle on 06-30-2022 Chloride [Moles/Vol] 106 mmol/L 98-[address] [facility] Glucose [Mass/Vol] 124 mg/dL 74-106 [facility] Comment on above: Fasting Glucose resu lt from 100 to 125 mg/dL suggests IMPAIRED HOMEOSTASIS per A.D.A. criteria. Potassium [Moles/Vol] 3.8 mmol/L 3.5-5.1 [facility] Sodium [Moles/Vol] 137 mmol/L 136-145 [facility] Laboratory - Chemistry and C hemistry - challengeOrdered By: Dr. Valle on 06-30-2022 CO2 [Moles/Vol] 23.0 mmol/L 21.0-32.0 [facility] Urea nitrogen/Creatinine [Mass ratio] 18.4 mg/mg 10-20 [facility] No Panel InformationOrdered By: Dr. Valle on 06-30-2022 Estimated Creatinine Clearance Calc 79.82 ml/min [facility] Estimated GFR (MDRD) Amer 85 mL/min >60 [facility] Comment on above: GFR Calc Estimated GFR (MDRD) Non-Af Amer 70 mL/min >60 [facility] Comment on above: Non- GFR Calc Serum or plasma calcium igor urement (mass/volume)Ordered By: Dr. Valle on 06-30-2022 Calcium [Mass/Vol] 9.0 mg/dL 8.5-10.1 [facility] Serum or plasma creatinine m easurement (mass/volume)Ordered By: Dr. Valle on 06-30-2022 Creatinine [Mass/Vol] 1.14 mg/dL 0.70-1.30 [facility] Comment on above: The validity of the calculated GFR & GFRAA in patients over 70 years has not been determined. Clinical correlation is essential. Serum or plasma urea nitroge n measurement (mass/volume)Ordered By: Dr. Valle on 06-30-2022 Urea nitrogen [Mass/Vol] 21 mg/dL 7-18 [facility] Thin prep Papanicolaou smear with manual screeningOrdered By: Dr. Valle on 06-30-2022 Thin prep Papanicolaou smear with manual screening 8 5-15 [facility] Basophil percentageon 2021 Bilirubin [Mass/Vol] 0.30 mg/dL 0.20-1.[address] [facility] Work Phone: Comment on above: For patients on eltr ombopag therapy, use of [employer] TBIL is not recommended. Cholesterol [Mass/Vol] 144 mg/dL <200 [facility] Work Phone: [phone] Comment on above: <200 mg/dL Desirable 200-240 mg/dL Borderline >240 mg/dL High Risk Protein [Mass/Vol] 7.3 g/dL 6.4-8.2 [facility] Work Phone: [phone] Triglyceride [Mass/Vol] 83 mg/dL <199 [facility] Work Phone: [phone] Comment on above: The drugs N-Acetylcy steine and Metamizole may falsely depress this assay.Serum Triglycerides Reference Interval Normal <150 mg/dL Borderline high 150 - 199 mg/dL High 200 - 499 mg/dL Very High > or = 500 mg/dL Direct bilirubinon Bilirubin.direct [Mass/Vol] 0.10 mg/dL 0.00-0.30 [facility] Work Phone: [phone] Laboratory - Chemistry and C hemistry - challengeon 02-21-2022 ALP [Catalytic activity/Vol] 90 U/L 45-117 [facility] Work Phone: [phone] ALT [Catalytic activity/Vol] 72 U/L 16-61 [facility] Work Phone: [phone] Globulin (S) [Mass/Vol] 3.3 g/dL 2.2-4.2 [facility] Work Phone: [phone] Serum or plasma albumin igor urement (mass/volume)on 02-21-2022 Albumin [Mass/Vol] 4.0 g/dL 3.2-5.0 [facility] Work Phone: [phone] Serum or plasma cholesterol in HDL measurement (mass/volume)on 02-21-2022 Cholesterol in HDL [Mass/Vol] 29 mg/dL >40 [facility] Work Phone: [phone] Comment on above: The drugs N-Acetylcy steine and Metamizole may falsely depress this assay. Reference Range HDL <40 mg/dL Low HDL Cholesterol HDL >or= 60 mg/dL High HDL Cholesterol Serum or plasma cholesterol in VLDL measurement (mass/volume)on 02-21-2022 Cholesterol in VLDL [Mass/Vol] 17 mg/dL 5-40 [facility] Work Phone: Serum or plasma low density lipoprotein (LDL) cholesterol measurement (mass/volume)on 02-21-2022 Cholesterol in LDL [Mass/Vol] 98 mg/dL 0-130 [facility] Work Phone: Thin prep Papanicolaou smear with manual screeningon 02-21-2022 Thin prep Papanicolaou smear with manual screening 28 U/L 15-37 [facility] Work Phone: CNOVon 10-18-2021 CNOV Office Visit ([facility] ) JIMENA ADLER ([id number]) 1965 M Date Time Provider Department 10/18/21 6:15 PM COLUMBA WICK [facility] During your visit today, we recorded the [...] DRAINAGE AFTER THE FIRST FEW HOURS. [facility] Columba Wick APRN.SHEET WRITER [address] [place] [address] APPOINTMENTS: Columba Wick APRN.CNP 10/18/2021 6:42 PM Signed Subjective HPI Jimena Adler is a 56 year old male [...] Hypertension Father - Ischemic Heart Disease Father PR - Diabetes Sister - Hypertension Brother - other (ASHD) Brother - other (TIA) Brother - Diabetes Brother - Prostate Cancer Brother - Ischemic Heart Disease Paternal Aunt PR Social History Tobacco Use - Smoking status: [...] or sooner if symptoms worsen. Columba Wick, VP DIRECTOR OF CREATIVE STRATEGY.SHEET WRITER Referring Provider: SELF [200] Allergies As of Date: 10/18/2021 (No Known Allergies) Date Review (more content not included)... Normal [facility] CNCOon 12-30-2020 CNCO Letter Text Normal [facility] CNOVon 12-30-2020 CNOV Office Visit ([facility]WSTR ) JIMENA ADLER ([id number]) 1965 M Date Time Provider Department 12/30/20 5:15 PM JERI RAZA [facility] During your visit today, we recorded the following information about you: Temperature Pulse Respiration Blood pressure 99 degrees 76/minute 16/minute 122/86 Weight 111.8 kg Jeri Raza PA-C 12/30/2020 7:53 PM Signed This note was created using [employer]. Subjective Jimena Adler is a 55 year old male. [...] Date - CARDIAC CATHETERIZATION: SCANNED RESULT / - COLONOSCOP W/ OR W/O [facility] SPEC 10/15/15 Colonoscopy FAMILY HISTORY Problem Relation Age of Onset - Alzheimer's Disease Mother - Hypertension Father - Ischemic Heart Disease Father PR - Diabetes Sister - Hypertension Brother - other (ASHD) Brother - other (TIA) Brother - Diabetes Brother - Prostate Cancer Brother - Ischemic Heart Disease Paternal Aunt PR Social History Tobacco Use - Smoking status: [...] XR HAND GENERAL 3V PA/LAT/OBL LT Jeri R Athy, PA-C Referring Provider: SELF [200] Allergies As of Date: 12/30/2020 (No Known Allergies) Date Reviewed: 12/30/2020 Reviewed by: Samira Moses MA - Fully Assessed Reason for Visit: Puncture Wound [1986] Cmt: L palm punctured with bolt x1 hour Primary Visit Diagnosis:Laceration of left hand with foreign body, initial encounter [S61 (more content not included)... Normal [facility] XR HAND 3V PA/LAT/OBL LTon 0 12-30-2020 XR HAND 3V PA/LAT/OBL LT * * *Final Repo rt* * * DATE OF EXAM: Dec 30 [...] spaces are maintained. IMPRESSION: Tiny foreign body. Stereo Operator: SAMANTHA Transcribe Date/Time: Dec 30 2020 6:13P Dictated by : PAOLA WALLACE MD This examination was interpreted and the report reviewed and electronically signed by: PAOLA WALLACE MD on Dec 30 2020 6:14PM EST [id number] Normal [facility] XR Hand - left PA and Latera l and Obliqueon 12-30-2020 IMPRESSION: Tiny foreign body. Stereo Operator: PSCB Transcribe Date/Time: Dec 30 2020 6:13P [...] spaces are maintained. DIVISION OF RADIOLOGY Provider, [facility] - 12/30/2020 * * *Final Report* * [...] are maintained. IMPRESSION IMPRESSION: Tiny foreign body. Stereo Operator: SAMANTHA Transcribe Date/Time: Dec 30 2020 6:13P Dictated by : PAOLA WALLACE MD This examination was interpreted and the report reviewed and electronically signed by: PAOLA WALLACE MD on Dec 30 2020 6:14PM [facility] Radiology [facility]ative[facility] XR Hand - left PA and Latera l and ObliqueOrdered By: Cc Provider on 12-30-2020 [facility] Office Visiton 11-10-2016 Fall risk assessment Fall risk assessment [facility] Work Phone: [phone] Protein mass conc Done [facility] Work Phone: [phone] Clinical Lists Update: Prelo chief unit forester 10-14-2015 Left ventricular Ejection fraction 65 % [facility] Work Phone: [phone] Lab Report: Lipid Profileon 10-16-2014 Cholesterol in HDL mass conc 29 mg/dL Low [facility] Work Phone: [phone] Cholesterol in LDL mass conc 67 mg/dL 0-130 [facility] Work Phone: [phone] Cholesterol mass conc 112 mg/dL [address] [facility] Work Phone: [phone] Lipoprotein.pre-beta mass conc 16 mg/dL 5-40 [facility] Work Phone: [phone] Triglyceride mass conc 79 mg/dL 0-199 [facility] Work Phone: [phone] Lab Report: Liver Profileon 10-16-2014 Albumin mass conc 3.8 g/dL 3.4-5.0 [facility] Work Phone: [phone] ALP enzyme act/vol (Bld) 75 U/L 50-136 [facility] Work Phone: [phone] ALT enzyme act/vol 47 U/L 12-78 [facility] Work Phone: [phone] AST enzyme act/vol 21 U/L 15-37 [facility] Work Phone: [phone] Bilirubin mass conc 0.50 mg/dL 0.20-1.00 [facility] Work Phone: [phone] Bilirubin.direct mass conc 0.14 mg/dL 0.00-0.30 [facility] Work Phone: [phone] Globulin mass conc (S) 3.3 g/dL 2.7-4.2 [facility] Work Phone: [phone] Protein mass conc 7.1 g/dL 6.4-8.2 [facility] Work Phone: [phone] Office Visiton 10-14-2014 Tobacco smoking status NHIS Former smoker [facility] Work Phone: [phone] Office Visit: [facility] 03-24-20 14 cardiac risk group C [facility] Work Phone: [phone] General cardiovascular disease 10Y risk [#] [place] N/A [facility] Work Phone: [phone] Lab Report: LIVERon 09-27-19 14 ALK 71 U/L Normal 45-117 [facility] Work Phone: [phone] Office Visiton 09-11-2013 Tobacco smoking status NHIS Current [facility] Work Phone: [phone] Clinical Lists Update: Prelo chief unit forester 06-11-2013 Anion gap molar conc 8 mmol/L [facility] Work Phone: [phone] basophils as percent of blood leukocytes, manual count 0.5 % [facility] Work Phone: [phone] Calcium mass conc 9.0 mg/dL [facility] Work Phone: [phone] Chloride molar conc 103 mmol/L [facility] Work Phone: [phone] CO2 ppres (BldV) 26.0 mmol/L [facility] Work Phone: [phone] Creatinine mass conc 1.1 mg/dL [facility] Work Phone: [phone] eosinophils as percent of blood leukocytes, manual count 2.1 % [facility] Work Phone: [phone] Erythrocyte distribution width Ratio (RBC) 13.5 % [facility] Work Phone: [phone] Glucose mass conc 101 mg/dL [facility] Work Phone: [phone] Hematocrit Volume Fraction (Bld) 45.5 % [facility] Work Phone: [phone] Hemoglobin mass conc (Bld) 15.8 g/dL [facility] Work Phone: [phone] Lymphocytes/100 WBC (Bld) 25.2 % [facility] Work Phone: [phone] MCH Entitic mass (RBC) 29.2 pg [facility] Work Phone: [phone] MCHC mass conc (RBC) 34.7 g/dL [facility] Work Phone: [phone] MCV Entitic volume (RBC) 83.9 fL [facility] Work Phone: [phone] Monocytes/100 WBC (Bld) 7.8 % [facility] Work Phone: [phone] neutrophils, band form as percent of blood leukocytes, manual count 64.2 % [facility] Work Phone: [phone] Platelet mean volume Entitic volume (Bld) 9.9 fL [facility] Work Phone: [phone] Platelets #/vol (Bld) 240 10*3/mm3 [facility] Work Phone: [phone] Potassium molar conc 3.6 mmol/L [facility] Work Phone: [phone] RBC #/vol (Bld) 5.42 10*6/uL [facility] Work Phone: [phone] Sodium molar conc 137 mmol/L [facility] Work Phone: [phone] Urea nitrogen mass conc 16 mg/dL [facility] Work Phone: [phone] Urea nitrogen/Creatinine mass ratio 14.5 mg/mg [facility] Work Phone: [phone] WBC #/vol (Bld) 8.1 10*3/uL [facility] Work Phone: [phone] Vital Signs Date Time Vital Sign Value Performing Clinician Gokul james 12-25-2024 09:35-0400 Body height 185.42 cm No Primary Care Physician [facility] 12-25-2024 09:35-0400 Body mass index (BMI) [Ratio] 34 kg/m2 No Primary Care Physician [facility] 12-25-2024 09:35-0400 Body weight 117.02 kg No Primary Care Physician [facility] 12-25-2024 09:35-0400 Diastolic blood pressure 80 mm[Hg] No Primary Care Physician [facility] 12-25-2024 09:35-0400 Heart rate 58 /min No Primary Care Physician [facility] 12-25-2024 09:35-0400 Respiratory rate 16 /min No Primary Care Physician [facility] 12-25-2024 09:35-0400 Systolic blood pressure 137 mm[Hg] No Primary Care Physician [facility] 12-16-2024 17:34-0400 Diastolic blood pressure 80 mm[Hg] No Primary Care Physician [facility] 12-16-2024 17:34-0400 Systolic blood pressure 142 mm[Hg] No Primary Care Physician [facility] 12-16-2024 14:19-0400 Body height 185.42 cm No Primary Care Physician [facility] 12-16-2024 14:19-0400 Body mass index (BMI) [Ratio] 34.2 kg/m2 No Primary Care Physician [facility] 12-16-2024 14:19-0400 Body temperature 98.9 [degF] No Primary Care Physician [facility] 12-16-2024 14:19-0400 Body weight 117.48 kg No Primary Care Physician [facility] 12-16-2024 14:19-0400 Diastolic blood pressure 94 mm[Hg] No Primary Care Physician [facility] 12-16-2024 14:19-0400 Heart rate 78 /min No Primary Care Physician [facility] 12-16-2024 14:19-0400 Respiratory rate 18 /min No Primary Care Physician [facility] 12-16-2024 14:19-0400 SaO2% (BldA) [Mass fraction] 98 % No Primary Care Physician [facility] 12-16-2024 14:19-0400 Systolic blood pressure 162 mm[Hg] No Primary Care Physician [facility] 11-21-2024 15:32-0400 Diastolic blood pressure 84 mm[Hg] No Primary Care Physician [facility] 11-21-2024 15:32-0400 Systolic blood pressure 128 mm[Hg] No Primary Care Physician [facility] 11-21-2024 09:25-0400 Body height 185.42 cm No Primary Care Physician [facility] 11-21-2024 09:25-0400 Body mass index (BMI) [Ratio] 34.2 kg/m2 No Primary Care Physician [facility] 11-21-2024 09:25-0400 Body weight 117.48 kg No Primary Care Physician [facility] 11-21-2024 09:25-0400 Diastolic blood pressure 92 mm[Hg] No Primary Care Physician [facility] 11-21-2024 09:25-0400 Heart rate 76 /min No Primary Care Physician [facility] 11-21-2024 09:25-0400 Respiratory rate 18 /min No Primary Care Physician [facility] 11-21-2024 09:25-0400 SaO2% (BldA) [Mass fraction] 95 % No Primary Care Physician [facility] 11-21-2024 09:25-0400 Systolic blood pressure 139 mm[Hg] No Primary Care Physician [facility] 11-13-2024 21:01-0400 Body temperature 97.9 [degF] No Primary Care Physician [facility] 11-13-2024 21:01-0400 Diastolic blood pressure 93 mm[Hg] No Primary Care Physician [facility] 11-13-2024 21:01-0400 Heart rate 106 /min No Primary Care Physician [facility] 11-13-2024 21:01-0400 Respiratory rate 20 /min No Primary Care Physician [facility] 11-13-2024 21:01-0400 SaO2% (BldA) [Mass fraction] 95 % No Primary Care Physician [facility] 11-13-2024 21:01-0400 Systolic blood pressure 139 mm[Hg] No Primary Care Physician [facility] 11-13-2024 19:43-0400 Body height 185.42 cm No Primary Care Physician [facility] 11-13-2024 19:43-0400 Body mass index (BMI) [Ratio] 33.8 kg/m2 No Primary Care Physician [facility] 11-13-2024 19:43-0400 Body weight 116.28 kg No Primary Care Physician [facility] 04-20-2023 15:16-0500 Body height 185.42 cm No Primary Care Physician [facility] 04-20-2023 15:16-0500 Body mass index (BMI) [Ratio] 32.7 kg/m2 No Primary Care Physician [facility] 04-20-2023 15:16-0500 Body weight 112.49 kg No Primary Care Physician [facility] 04-20-2023 15:16-0500 Diastolic blood pressure 78 mm[Hg] No Primary Care Physician [facility] 04-20-2023 15:16-0500 Heart rate 74 /min No Primary Care Physician [facility] 04-20-2023 15:16-0500 Respiratory rate 16 /min No Primary Care Physician [facility] 04-20-2023 15:16-0500 Systolic blood pressure 138 mm[Hg] No Primary Care Physician [facility] 08-14-2022 16:43-0400 Diastolic blood pressure 88 mm[Hg] [facility] 08-14-2022 16:43-0400 Heart rate 83 /min [facility] 08-14-2022 16:43-0400 Respiratory rate 16 /min [facility] 08-14-2022 16:43-0400 SaO2% (BldA) [Mass fraction] 98 % [facility] 08-14-2022 16:43-0400 Systolic blood pressure 156 mm[Hg] [facility] 08-14-2022 14:10-0400 Body height 185.[address] [facility] 08-14-2022 14:10-0400 Body mass index (BMI) [Ratio] 33.4 kg/m2 [facility] 08-14-2022 14:10-0400 Body temperature 98.3 [degF] [facility] 08-14-2022 14:10-0400 Body weight 114.[address] [facility] 06-30-2022 19:53-0400 Diastolic blood pressure 81 mm[Hg] [facility] 06-30-2022 19:53-0400 Heart rate 86 /min [facility] 06-30-2022 19:53-0400 Respiratory rate 20 /min [facility] 06-30-2022 19:53-0400 SaO2% (BldA) [Mass fraction] 96 % [facility] 06-30-2022 19:53-0400 Systolic blood pressure 133 mm[Hg] [facility] 06-30-2022 17:41-0400 Body mass index (BMI) [Ratio] 33.3 kg/m2 [facility] 06-30-2022 17:41-0400 Body temperature 97 [degF] [facility] 06-30-2022 17:41-0400 Body weight 114.[address] [facility] 02-21-2022 15:19-0500 Body height 185.42 cm No Primary Care Physician [facility] Work Phone: 02-21-2022 15:19-0500 Diastolic blood pressure 78 mm[Hg] No Primary Care Physician [facility] Work Phone: 02-21-2022 15:19-0500 Systolic blood pressure 128 mm[Hg] No Primary Care Physician [facility] Work Phone: 02-21-2022 15:19-0500 Body mass index (BMI) [Ratio] 33.2 kg/m2 No Primary Care Physician [facility] Work Phone: 02-21-2022 15:19-0500 Body weight 114.3 kg No Primary Care Physician [facility] Work Phone: 02-21-2022 15:19-0500 Heart rate 76 /min No Primary Care Physician [facility] Work Phone: 02-21-2022 15:19-0500 Respiratory rate 18 /min No Primary Care Physician [facility] Work Phone: 02-21-2022 15:19-0500 SaO2% (BldA) [Mass fraction] 95 % No Primary Care Physician [facility] Work Phone: 10-18-2021 18:11-0400 Body temperature 98.2 [degF] Columba Praisler-Wood VP DIRECTOR OF CREATIVE STRATEGY.SHEET WRITER Work Phone: [facility] 10-18-2021 18:11-0400 Body weight 111.58 kg Columba Praisler-Wood VP DIRECTOR OF CREATIVE STRATEGY.SHEET WRITER Work Phone: [facility] 10-18-2021 18:11-0400 Diastolic blood pressure 88 mm[Hg] Columba Praisler-Wood VP DIRECTOR OF CREATIVE STRATEGY.SHEET WRITER Work Phone: [facility] 10-18-2021 18:11-0400 Heart rate 70 /min Columba Praisler-Wood VP DIRECTOR OF CREATIVE STRATEGY.SHEET WRITER Work Phone: [facility] 10-18-2021 18:11-0400 Respiratory rate 20 /min Columba Praisler-Wood VP DIRECTOR OF CREATIVE STRATEGY.SHEET WRITER Work Phone: [facility] 10-18-2021 18:11-0400 SaO2% (BldA) [Mass fraction] 97 % Columba Praisler-Wood VP DIRECTOR OF CREATIVE STRATEGY.SHEET WRITER Work Phone: [facility] 10-18-2021 18:11-0400 Systolic blood pressure 136 mm[Hg] Columba Wick APRNHarshadSHEET WRITER Work Phone: [facility] 11-10-2016 16:18-0400 BMI (Body Mass Index) 32.19 kg/m2 [facility] Work Phone: 11-10-2016 16:18-0400 BP Diastolic 60 mm[Hg] [facility] Work Phone: 11-10-2016 16:18-0400 BP Systolic 110 mm[Hg] [facility] Work Phone: 11-10-2016 16:18-0400 Height 185.42 cm [facility] Work Phone: 11-10-2016 16:18-0400 Pulse (Heart Rate) 64 /min [facility] Work Phone: 11-10-2016 16:18-0400 Respiratory Rate 20 /min [facility] Work Phone: 11-10-2016 16:18-0400 Weight 110.68 kg [facility] Work Phone: 10-20-2015 15:49-0400 BSA (Body Surface Area) 2.33 m2 [facility] Work Phone: 10-14-2014 14:34-0400 BP Diastolic 60 mm[Hg] [facility] Work Phone: 10-14-2014 14:34-0400 BP Systolic 115 mm[Hg] [facility] Work Phone: Encounters Encounter Date Encounter Type Care Provider Facility Start: 02-20-2025 ambulatory Becki Harriet Facility :[facility] Start: 02-18-2025 ambulatory Becki Harriet Facility :[facility] Start: 02-11-2025 ambulatory Lenora ARNDT Facility:[facility] Start: 02-05-2025 ambulatory Salomón Peacock Facility:[facility] Start: 02-05-2025 ambulatory Becki Larios Facility :[facility] Start: 12-25-2024 End: 12-25-2024 Patient encounter procedure Lenora ARNDT -[facility] Work Phone: Start: 12-25-2024 End: 12-25-2024 ambulatory No Primary Care Physician -[facility] Start: 12-17-2024 End: 12-17-2024 ambulatory No Primary Care Physician -Laboratory Start: 12-17-2024 End: 12-17-[address] Becki Larios MD -Laboratory Work Phone: Start: 12-16-2024 End: 12-16-[address] Becki Larios MD -[facility] Work Phone: Start: 12-16-2024 End: 12-17-2024 ambulatory No Primary Care Physician -[facility] Start: 11-21-2024 End: 11-21-2024 Patient encounter procedure Lenora ARNDT -[facility] Work Phone: Start: 11-21-2024 End: 11-21-2024 ambulatory No Primary Care Physician -[facility] Start: 11-13-2024 End: 11-13-2024 Emergency department patient visit No Primary Care Physician -Emergency Department Work Phone: Start: 05-05-2023 End: 05-05-2023 ambulatory No Primary Care Physician [facility] Work Phone: Start: 05-05-2023 End: 05-05-2023 Patient encounter procedure No Primary Care Physician [facility]-Pre-Admission Testing Work Phone: Start: 04-20-2023 End: 04-20-2023 Patient encounter procedure No Primary Care Physician [facility] Work Phone: Start: 09-27-2022 Patient encounter status No Pr imary Care Physician [facility] Start: 09-27-2022 Preprocedural examin ation done No Primary Care Physician [facility] Start: 08-14-2022 End: 08-14-2022 Emergency department patient visit [facility] Start: 06-30-2022 End: 06-30-2022 Emergency department patient visit [facility] Start: 02-21-2022 End: 02-21-2022 ambulatory No Primary Care Physician [facility] Work Phone: Start: 02-21-2022 End: 02-21-2022 Patient encounter procedure No Primary Care Physician [facility] Start: 10-18-2021 End: 10-18-2021 Patient encounter procedure Columba Wick APRN.SHEET WRITER Work Phone: [facility] Comment on above: Laceration of left i ndex finger without foreign body without damage to nail, initial encounter (Primary Dx) Start: 12-30-2020 End: 12-30-2020 Subsequent hospital visit by physician [facility] Work Phone: Radiology Comment on above: Laceration of left h and with foreign body, initial encounter [S61.422A] Procedures Date Procedure Procedure Detail Performing Clinician Start: 08-14-2022 Plain chest X-ray Start: 12-30-2020 Radex hand minimum 3 views Jeri Raza PA-C Work Phone: Start: 07-17-2020 Adult depression scr eening assessment Columba Wick APRN.SHEET WRITER Work Phone: Start: 07-17-2020 Lipid 1996 panel - S gretchen or Plasma [facility] Work Phone: Start: 11-10-2016 End: 11-10-2016 Follow Up Appt 1 year Zaki Fry MD Start: 11-10-2016 End: 11-10-2016 JANET Fry MD Start: 10-20-2015 End: 10-20-2015 Follow Up Appt 1 year Zaki Fry MD Start: 10-20-2015 End: 10-20-2015 JANET Fry MD Start: 10-15-2015 Colonoscopy Columba ritterZandra SON Work Phone: Start: 10-14-2014 End: 10-16-2014 *Hepatic Function Panel Sunita Cardoso Start: 10-14-2014 End: 10-14-2014 DIESEL ROLLER OPERATOR Zaki Fry MD Start: 10-14-2014 End: 10-15-2014 Documentation of current medications Zaki Fry MD Start: 10-14-2014 End: 10-14-2014 Follow Up Appt 1 year Zaki Fry MD Start: 10-14-2014 End: 10-16-2014 Lipid Majo panel - Serum or Plasma Zaki Fry MD Start: 03-24-2014 End: 11-10-2016 DIESEL ROLLER OPERATOR Lenora Lee PA-C Work Phone: Start: 03-24-2014 End: 11-10-2016 Follow Up Appt 6 months Lenora becker PA-C Work Phone: Start: 09-11-2013 End: 09-26-2013 *Hepatic Function Panel Sunita Cardoso Start: 09-11-2013 End: 02-25-2014 Follow Up Appt 6 months Sunita Cardoso Start: 09-11-2013 End: 09-26-2013 Lipid 1996 panel - Serum or Plasma Zaki Fry MD Start: 09-11-2013 End: 02-25-2014 JANET Fry MD Plan of Treatment Date Care Activity Detail Author Start: 12-30-2030 Urine microalbumin profile [facility] Start: 10-14-2025 Colonoscopy COLONOSCOPY [facility] Start: 10-14-2025 COLORECTAL CANCER SCREENING COLORECTAL CANCER SCREENING [facility] Start: 10-14-2025 Screening for malignant neoplasm of colon [facility] Start: 07-17-2025 Lipid panel Lipid Screening [facility] Start: 07-17-2025 LIPID SCREEN LIPID SCREEN [facility] Start: 07-17-2025 PROSTATE CANCER SCREENING DISCUSSION PROSTATE CANCER SCREENING DISCUSSION [facility] Start: 07-17-2025 Prostate specific antigen measurement Prostate Cancer Screening Discussion [facility] Start: 02-05-2025 [facility] Start: 12-25-2024 End: 12-25-2024 Evaluation of diagnostic study results [facility] Start: 11-13-2024 [facility] Start: 12-03-2023 Covid-19 Vaccine () Covid-19 Vaccine () [facility] Start: 12-03-2023 Influenza vaccination Influenza Vaccine (#1) [facility] Start: 07-18-2023 DIABETES SCREEN DIABETES SCREEN [facility] Start: 07-18-2023 Diabetes Screening Diabetes Screening [facility] Start: 08-14-2022 [facility] Start: 08-14-[address] [facility] Start: 12-02-2021 Influenza vaccination INFLUENZA (#1) [facility] Start: 07-17-2021 Adult depression screening assessment DEPRESSION SCREENING [facility] Start: 07-17-2021 ANNUAL PCP TEAM CHRONIC DISEASE VISIT ANNUAL PCP TEAM CHRONIC DISEASE VISIT [facility] Start: 07-17-2021 Hepatitis B surface antibody level LDL CHOLESTEROL [facility] Start: 11-09-2017 End: 11-09-2017 Appointment [facility]ointment [facility] Work Phone: Start: 11-10-2016 End: 11-10-2016 Follow Up Appt 1 year Follow Up Appt 1 year [facility] Work Phone: Start: 11-10-2016 End: 11-10-2016 MMM MMM [facility] Work Phone: Start: 10-20-2015 End: 10-20-2015 *Hepatic Function Panel *Hepatic Function Panel [facility] Work Phone: Start: 10-20-2015 End: 10-20-2015 Follow Up Appt 1 year Follow Up Appt 1 year [facility] Work Phone: Start: 10-20-2015 End: 10-20-2015 Lipid 1996 panel *Lipid Profile CC PCP [facility] Work Phone: Start: 10-20-2015 End: 10-20-2015 MMM MMM [facility] Work Phone: Start: 04-20-2015 End: 10-16-2014 *Hepatic Function Panel *Hepatic Function Panel [facility] Work Phone: Start: 04-20-2015 End: 10-16-2014 Lipid 1996 panel *Lipid Profile CC PCP [facility] Work Phone: Start: 10-14-2014 End: 10-16-2014 *Hepatic Function Panel *Hepatic Function Panel [facility] Work Phone: Start: 10-14-2014 End: 10-14-2014 DIESEL ROLLER OPERATOR DIESEL ROLLER OPERATOR [facility] Work Phone: Start: 10-14-2014 End: 10-14-2014 Follow Up Appt 1 year Follow Up Appt 1 year [facility] Work Phone: Start: 10-14-2014 End: 10-16-2014 Lipid 1996 panel *Lipid Profile CC PCP [facility] Work Phone: Start: 2014 SHINGRIX VACCINE (1 of 2) SHINGRIX VACCINE (1 of 2) [facility] Start: 03-24-2014 End: 11-10-2016 DIESEL ROLLER OPERATOR DIESEL ROLLER OPERATOR [facility] Work Phone: Start: 03-24-2014 End: 11-10-2016 Follow Up Appt 6 months Follow Up Appt 6 months [facility] Work Phone: Start: 09-11-2013 End: 09-26-2013 *Hepatic Function Panel *Hepatic Function Panel [facility] Work Phone: Start: 09-11-2013 End: 02-25-2014 Follow Up Appt 6 months Follow Up Appt 6 months [facility] Work Phone: Start: 09-11-2013 End: 09-26-2013 Lipid 1996 panel *Lipid Profile CC PCP [facility] Work Phone: Start: 09-11-2013 End: 02-25-2014 MMM MMM [facility] Work Phone: Start: 2009 COLOGUARD (FIT-DNA) COLOGUARD (FIT-DNA) [facility] Start: [address] COLONOGRAPHY [facility] Start: 2009 FECAL OCCULT BLOOD FECAL OCCULT BLOOD [facility] Start: 2009 Screening for malignant neoplasm of colon [facility] Start: 2009 SIGMOIDOSCOPY SIGMOIDOSCOPY [facility] Start: 1982 Anxiety Screening Anxiety Screening [facility] Start: 1982 BP CONTROLLED (<130/80) BP CONTROLLED (<130/80) [facility] Start: 1982 Depression Screening Depression Screening [facility] Start: 1982 HEPATITIS C SCREENING HEPATITIS C SCREENING [facility] Start: 1982 Hepatitis C screening Hepatitis C Screening [facility] Start: 1982 HIV SCREENING HIV SCREENING [facility] Start: 1982 HIV screening HIV Screening [facility] Start: 1964 COVID-19 VACCINE (#1) COVID-19 VACCINE (#1) [facility] Basic metabolic 2008 panel with ionized calcium - Serum or Plasma [facility] CBC W Auto Different ial panel - Blood [facility] CBC W Auto Different ial panel - Blood [facility] Comprehensive metabo lic 2000 panel - Serum or Plasma [facility] Lipid 1996 panel - S gretchen or Plasma [facility] Patient Education [facility] Work Phone: Patient referral [facility] Work Phone: XR Chest [facility] Immunizations Immunization Date Immunization Notes Care Provider Ilya tamez 12-30-2020 tetanus toxoid, redu gloria diphtheria toxoid, and acellular pertussis vaccine, adsorbed Columba Wick VP DIRECTOR OF CREATIVE STRATEGY.SHEET WRITER Work Phone: [facility] 12-12-2008 tetanus toxoid, redu gloria diphtheria toxoid, and acellular pertussis vaccine, adsorbed Columba Wick APRN.IVORY Work Phone: [facility] Payers Date Payer Category Payer Self-pay [id number] 2024 Unknown [id number] 2024 Unknown [id number] 2021 Unknown [employer] [facility] [id number] 2021-[address] [place] [id number] PPO [id number] 2020 Unknown [employer] [facility] [id number] 2020-Present [phone] [place] [address] PPO [id number] 2020 Private Health Insurance [employer] POS [id number] 2020-Present [phone] [address] [place] [address] POS [id number] 2020 Private Health Insurance [employer] POS [id number] 2020-2020 [address] [place] [address] POS [id number] 2013 Private Health Insurance [employer] [id number] Unknown [employer] [id number] Unknown [id number] Unknown [id number] Unknown [id number] Unknown [id number] Unknown [id number] Unknown [id number] Unknown [id number] Unknown [id number] Unknown [id number] Unknown [id number] Social History Date Type Detail Facility Start: 06-25-[facility] History of tobacco use Cigarette Smoker [facility] Start: 06-25-2013 Tobacco use and exposure User of smokeless tobacco [facility] History of tobacco use Chews Tobacco [facility] Start: 12-30-2020 End: 10-18-2021 Alcohol intake Current drinker of alcohol (finding) [facility] Start: 12-31-2007 History SDOH Alcohol Comment once monthly [facility] Start: 12-12-2008 Tobacco Comment uses chew and states smokes less than one half a pack of cigs daily. Quit chewing 12/03/08, smokes less than 1 pk a month [facility] Start: 1965 Sex Assigned At Not on file [facility] Start: 10-08-2021 End: 10-18-2021 Exposure to SARS-CoV-2 (event) Not sure [facility] Start: 02-21-2022 End: 04-20-2023 Tobacco smoking status NHIS Unknown if ever smoked [facility] Start: 1965 Sex Assigned At Male [facility] History of tobacco use Current smoker [facility] Start: 03-08-2020 End: 12-30-2020 History of Social function [facility] Start: 03-08-2020 End: 12-30-2020 Tobacco use panel [facility] Adult Depression Screening Assessment 0 [facility] Start: 11-13-2024 End: 12-16-2024 Tobacco smoking status NHIS Never smoked tobacco (finding) [facility] Sexual Orientation Heterosexual (finding) [facility] Mental Status Date Assessment Result Facility 11-13-2024 Cognitive function Awake;Alert;A ppropriate;Follow s Commands [facility] Work Phone: 08-14-2022 Cognitive function Level Of Cons ciousness Awake;Alert;Appropriate;Follow s Commands [facility] Work Phone: 06-30-2022 Cognitive function Level Of Cons ciousness Awake;Alert;Appropriate;Follow s Commands [facility] Work Phone: Clinical Notes 12-30-2020 to 02-11-2025 Note Date & Type Note Facility 02-11-2025 Note [facility] Medical Records Department [address] [place] [address] History Physical Exam 02/11/25 1716 MR#: [id number] Acct: [id number] Name: JIMENA ADLER Rep #: [id number] : 1965 59 From: Lenora ARNDT PCP: Dr. Becki Larios MD Status:PRE [facility] Location: [facility] History and Physical Jimena Adler is 59-year-old man with a history [...] mild coronary calcifications noted. He presented to [facility] Emergency Department on 08/14/2022 with palpitations. His EKG showed normal sinus rhythm. His work-up was negative. It was recommended to proceed with ablation. On account of recurrent palpitations he was agreeable. This has however not been scheduled due to a variety of issues. His stress test in October 2022 was negative and showed hypertensive response to exercise. Pt was in the ER in Nov for SVT. He did convert with 6 mg of adenosine. He has not had any symptoms since then. [facility] Medical History Obesity Atherosclerotic heart disease of [place] coronary artery without angina pectoris Pneumonia due to 2019 novel coronavirus (02/09/21) Supraventricular tachycardia (02/09/21) COVID-19 virus detected (01/27/21) Hyperlipidemia Essential hypertension Surgical History S/P colonoscopy History of left heart catheterization (06/12/13) Family History Father CAD (coronary artery disease), Onset Age: 68 Myocardial infarction Grandfather CAD (coronary artery disease) Brother CAD (coronary artery disease), Onset Age: 69 Sister CAD (coronary artery disease), Onset Age: 75 Brother Heart valve disease Mother Dementia Social History adopted: No household members: spouse and children number of children: 2 current occupational status: employed 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 pets and animals: Yes (1) pets and animals: dog(s) sexually active: Yes Smoking Status: Never smoker Smokeless tobacco user: chewing tobacco how long ago did patient quit smoking: Quit for 1 year, wants to quit again quit status: has quit before alcohol intake: current alcohol intake frequency: a few times a month Alcohol type: beer details: < 3 in 1 sitting substance use type: does not use caffeine: Yes (1-2) Type: coffee frequency: 1-2 times per week do you feel safe at home: Yes ROS Const Const: Negative for fatigue or weakness Eyes Eyes: Negative for change in vision ENT ENT: Negative for dizziness or balance problems Cardio Chest Pain: No Palpitations: No Edema: Bilateral (Mild) Resp Respiratory: Negative for SOB with activity, SOB at rest or SOB orthopnea SOB lying down GI GI: Negative nausea or heartburn Musc Musc: Negative for balance problems Neuro Neuro: Negative for dizziness, lightheadedness, near syncope, syncope or weakness Endo Endo: Negative for fatigue Cardiology Exam [...] JVD Carotids: normal carotid upstroke Chest Chest inspection: normal inspection of the chest, symmetric chest movement and normal respiratory effort; Negative cough Auscultation: Bilateral: Clear to Auscultation Cardio Rate: regular rate Rhythm: regular rhythm Heart sounds: S1 normal and S2 normal; Negative rub, gallop or murmur GI GI: normal to inspection and obese Neuro General: patient alert, patient awake, patient oriented x3 and CN's II-XI intact bilaterally Skin Skin: no rashes or lesions noted Extremities Pulses: Normal: Right Posterior Tibial Pulse, Left Posterior Tibial Pulse, Right Radial Pulse and Left Radial Pulse Lower Extremity Edema: None: Bilateral Psych Psychological: normal affect Assessment Plan Assessment/Plan (1) Supraventricular tachycardia: PLAN: Patient will under (more content not included)... [facility] 12-25-[address] [facility] 11-21-2024 Evaluation note Diagnosis Onset Date Resolution Atherosclerotic heart disease of [place] coronary artery without angina pectoris chronic November 21, 2024 2:39pm Essential hypertension November 21, 2024 2:39pm Hyperlipidemia chronic November 2:39pm Supraventricular tachycardia February 09, 2021November 21, 2024 2:39pm Atherosclerotic heart disease of [place] coronary artery without angina pectoris December 16, 2024 1:58pm Essential hypertension chronic December 16, 2024 1:58pm Supraventricular tachycardia February 09, 2021 chronic December 16, 2024 1:58pm Encounter for screening for malignant neoplasm of colon noneactive December 16, 2024 1:58pm Establishing care with new doctor, encounter for noneactive December 16, 2024 1:58pm Radiculopathy affecting upper extremity noneactive December 16, 2024 1:58pm [facility] Work Phone: [phone]) 401-774808-21-2025 Evaluation note* Diagnosis Onset Date Resolution Status Admit Date Atherosclerotic heart disease of [place] coronary artery without angina pectoris November 21 2:39pm Essential hypertension chronic Au 2024 2:39pm Hyperlipidemia chronic November 2:39pm Supraventricular tachycardia February 09, 2021November 21, 2024 2:39pm Elevated LFTs February 09, 2021 acute Sep 2024 1:58pm Atherosclerotic heart disease of [place] coronary artery without angina pectoris chronic December 16, 2024 1:58pm Essential hypertension chronic Se ptember 2024 1:58pm Supraventricular tachycardia February 09, 2021December 1:58pm Chews tobacco noneactive December 022024 1:58pm Screening for depression noneactive December 16, 2024 1:58pm Immunization declined noneactive Dec 1:58pm Encounter for screening for malignant neoplasm of colon noneactive December 16, 2024 1:58pm Establishing care with new doctor, encounter for noneactive December 16, 2024 1:58pm Radiculopathy affecting upper extremity noneactive December 16, 2024 1:58pm Neck pain noneactive December 1:58pm Atherosclerotic heart disease of [place] coronary artery without angina pectoris chronic December 25, 2024 9:13am Essential hypertension chronic Se ptember 2024 9:13am Hyperlipidemia chronic December 25, 2024 9:13am Supraventricular tachycardia February 09, 2021December 9:13am [employer] [facility] Work Phone: [phone] David Cordova [facility] [place] August 14, 2022 4:36pm Note Date/Time August 14, 2022 2:26p [facility] Medical Records Department [address] [place] [address] Emergency Department Summary 08/14/22 MR#: [id number] Acct: [id number] Name: JIMENA ADLER Rep #:[id number] : 1965 57 From: Ian Flores PCP: Care Physician,No Primary Status :REG ER Location: ED HPI History of Present Illness Chief Complaint: Palpitations PFSH PFS Medical History Atherosclerotic heart disease of [place] coronary artery without angina pectoris COVID-19 virus [...] AVNRT, 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 Narrative: Patient was hemodynamically stable, afebrile, nontoxic-appearing. [...] % (Auto) 62.2 Lymph % (Auto) 26.1 Don[place] % (Auto) 6.9 Eos % (Auto) 3.9 [...] (Auto) Neut % (Auto) Lymph % (Auto) [place] % (Auto) Eos % (Auto) Baso % [...] your Primary Care Provider. Call [facility] ([phone]) or report to the closest Emergency Room. Call 911 if necessary. 08/14/22 1636 <Electronically signed by Ian Hernandez DO> Cosigner Signature (if applicable): CC: No Primary Care Physician ~ Signed [facility] Work Phone: [phone] NoteHNO ID: [id number] Author: Columba Wick APRN.SHEET WRITER Service: ? Author Type: Nurse Practitioner Type: Progress Notes Filed: 10/18/2021 6:42 PM Note Text: Subjective HPI Jimena Adler is a 56 year old male [...] Hypertension Father - Ischemic Heart Disease Father [place] - Diabetes Sister - Hypertension Brother - other (ASHD) Brother - other (TIA) Brother - Diabetes Brother - Prostate Cancer Brother - Ischemic Heart Disease Paternal Aunt PR Social History Tobacco Use - Smoking status: [...] or sooner if symptoms worsen. Columba Wick [facility] History of Present illness Narrative* Columba Wick APRN.IVORY - 10/18/2021 6:39 PM EDT Images from the original note were not included. Subjective HPI Jimena Adler is a 56 year old male [...] Date ASHD (arteriosclerotic heart disease) 06/25/2013 Hypertension 2009 Impaired fasting glucose 07/19/2020 Viral pneumonia, unspecified [...] Mother Hypertension Father Ischemic Heart Disease Father PR Diabetes Sister Hypertension Brother other (ASHD) Brother other (TIA) Brother Diabetes Brother Prostate Cancer Brother Ischemic Heart Disease Paternal Aunt PR Social History Tobacco Use Smoking status: Former [...] worsen. Columba Wick APRN.CNP [facility] Instructions* Patient Instructions* Columba Wick APRN.CNP - [...] DRAINAGE AFTER THE FIRST FEW HOURS. [facility] Columba Wick APRN.IVORY [address] [place] [address] APPOINTMENTS:[phone] documented in this encounterC[facility]11-09-2021 Evaluation note* Diagnosis Onset Date Resolution Status Essential hypertension acute Hyperlipidemia acute Supraventricular tachycardia February 09, [address] [facility] Work Phone: [phone]) 592-705511-09-2021 Evaluation note* Diagnosis Onset Date Resolution Status Atherosclerotic heart diseas e of [place] coronary artery without angina pectoris chronic Essential hypertension chron ic Hyperlipidemia chronic Supraventricular tachycardia February 09, 2021 [facility] Work Phone: [phone]) 460-470711-04-2021 NoteHNO ID: [id number] Author: Renee Quarles Population Health Navigator Service: [...] for Outreach Attribution: Provider Off-boarding Payer: Payor: [employer] / Plan: [employer] POS / Product Type: POS / Care Gap Reviewed:: Reminder: Reminder note to check Health Maintenance for items below Health Maintenance items due: COVID-19 VACCINE(1) Never done BP CONTROLLED (<130/80) Never done SHINGRIX VACCINE(1 of 2) Never done INFLUENZA(1) Never done Advanced Directives Completed: Have you ever planned for future healthcare decisions with a power of assistant prosecuting attorney, living will, or advance directives? No. Please bring a copy to your next appointment or email to [email or web address] Referrals: N/A Message Sent to Practice: NO Navigation Signature: Renee Quarles Population Health Navigator February 04, 2021 1:06 [facility]11-04-2021 NotePatient Outreach (NETNAV) JIMENA ADLER ([id number]) 1965 M Date Time Provider Department 02/04/21 [...] future healthcare decisions with a power of assistant prosecuting attorney, living will, or advance directives? No. Please bring a copy to your next appointment or email to [email or web address] Referrals: N/A Message Sent to Practice: NO [...] fasting glucose [R73.01] 07/19/2020 Encounter Status:Closed by ROBINA [place] EMERGENCY DEPARTMENT HEALTH NAVIGATORRENEE on 02/04/21[facility]-29-[facility] NoteHNO ID: [id number] Author: Jeri Raza PA-C Service: ? Author Type: Physician Keller Machine Operator Type: Progress Notes Filed: 12/30/2020 7:53 PM Note Text: This note was created using [employer] Infiniteriter. Subjective Jimena Adler is a 55 year old male. [...] Laterality Date - CARDIAC CATHETERIZATION: SCANNED RESULT COLONOSCOP W/ OR W/O [facility] SPEC 10/15/15 Colonoscopy FAMILY HISTORY Problem Relation Age of Onset - Alzheimer's Disease Mother - Hypertension Father - Ischemic Heart Disease Father PR - Diabetes Sister - Hypertension Brother - other (ASHD) Brother - other (TIA) Brother - Diabetes Brother - Prostate Cancer Brother - Ischemic Heart Disease Paternal Aunt PR Social History Tobacco Use - Smoking status: [...] XR HAND GENERAL 3V PA/LAT/OBL LT [facility]09-29-2021 NoteHNO ID: [id number] Author: RT Oksana(R) Service: ? Author Type: Technologist Type: Progress Notes Filed: 12/30/2020 6:09 PM Note Text: Radiology Service Progress Note PATIENT NAME: Jimena Adler DATE OF SERVICE: December 30, 2020 [...] BY: RT Oksana(R) December 30, 2020 6:01 [facility]09-29-2021 History of Present illness Narrative* Darian Garcia RT(R) - 12/30/2020 6:00 PM EDT Radiology Service Progress Note PATIENT NAME: Jimena Adler DATE OF SERVICE: December 30, 2020 [...] 30, 2020 6:01 PM [facility]* Diagnosis Laceration of left index finger without foreign body without damage to nail, initial encounter- Primary documented in this encounter [facility] noteNo assessment information availableWTwin City Hospital Work Phone: Evaluation note* Diagnosis Laceration of left hand with foreign body, initial encounter documented in this encounter [facility] note* Diagnosis Onset Date Resolution Status Admit Date Atherosclerotic heart diseas e of [place] coronary artery without angina pectoris chronic November 022024 2:39pm Essential hypertension chronic Au 2024 2:39pm Hyperlipidemia chronic November 2:39pm Supraventricular tachycardia February 09, 2021 chronic November 21, 2024 2:39pm [facility] Work Phone: Hospital Discharge instructions [...] care physician for further outpatient evaluation and management.[facility] Work Phone: Hospital Discharge instructionsAdditional Instructions [...] if your symptoms worsen or new symptoms develop.[facility] Work Phone: Hospital Discharge instructionsAmbulatory Orders* General Surgery Location: None Selected [facility] Work Phone: Progress note Author Lenora Lee [facility] Note Date/Time December 25, 2024 10:09am [facility] [facility] [place] [address] OFFICE VISIT Date of Service: 12/25/24 MR#: [id number] Acct: [id number] Name: JIMENA ADLER Rep #: [id number] : 1965 Provider: YRIS Emerson Age/Sex: 59/M Location[place] [facility] Status: Signed HPI HPI History of Present Illness Details: Jimena Adler is 59-year-old man with a history of hypertension, hyperlipidemia, tobacco abuse, who underwent a cardiac catheterization in 2013. He had no significant coronary artery disease noted. In February 2021 he had an episode of narrow complex tachycardia with a heart rate of 170. He did spontaneously convert with adenosine. He did have a recent diagnosis of COVID-19 and [address] a [address]of his chest to rule out PE but it did show mild bilateral pneumonia. Troponinswere essentially negative. There were mild coronary calcifications noted. He presented to [facility] Emergency Department on 08/14/2022 with palpitations. [...] any symptoms since then. Intake Vital Signs 11/21/24 09:25 12/16/24 14:19 12/25/24 09:35 Height 6 ft 1 in 6 ft 1 in 6 ft 1 in Weight: 259 lb 258 lb BMI 34.2 34.0 BP 162/94 H 137/80 H Blood Pressure Location Lt brachial Lt brachial Position Sitting Sitting Respiration 18 16 Pulse 78 58 L Pulse Source Monitor NIBP Temp 98.9 F Pulse Oximetry (%) 98 Oxygen Delivery Method room air Intake Visit Reasons: H&P/Ablation 02/20 Water Safety Instructor Required: No Accompanied by: Is patient in pain?: No Allergies lisinopril Allergy (Unknown, Verified 12/25/24 09:38) cough Medications ?Medication ?Instructions ?Recorded ?Confirmed ?Type aspirin 81 mg tablet,delayed 81 mg PO DAILY 08/11/21 0 12/25/24 History release (Adult Aspirin Regimen) atorvastatin 80 mg tablet 80 mg PO QHS #90 tabs 12/25/24 Rx hydrochlorothiazide 12.5 mg capsule 12.5 mg PO DAILY # 90 caps 11/21/24 12/25/24 Rx losartan 50 mg tablet 50 mg PO DAILY #90 tabs 11/0212/25/24 Rx metoprolol succinate 25 mg 25 mg PO DAILY #90 TABLETS 11/21/24 12/25/24 Rx tablet,extended release 24 hr Ejection fraction %: 60 Have you fallen in the past year?: No PFSH Medical History Obesity Atherosclerotic heart disease of [place] coronary artery without angina pectoris Pneumonia due to 2019 novel coronavirus (02/09/21) Supraventricular tachycardia (02/09/21) COVID-19 virus detected (01/27/21) Hyperlipidemia Essential hypertension Surgical History S/P colonoscopy History of left heart catheterization (06/12/13) Family History Father CAD (coronary artery disease), Onset Age: 68 Myocardial infarction Grandfather CAD (coronary artery disease) Brother CAD (coronary artery disease), Onset Age: 69 Sister CAD (coronary artery disease), Onset Age: 75 Brother Heart valve disease Mother Dementia Social History adopted: No household members: spouse and children number of children: 2 current occupational status: employed current occupation: [employer] pets and animals: Yes (1) pets and animals: dog(s) sexually active: Yes Smoking Status: Never smoker Smokeless tobacco user: chewing tobacco how long ago did patient quit smoking: Quit for 1 year, wants to quit again quit status: has quit before alcohol intake: current alcohol intake frequency: a few times a month Alcohol type: beer details: < 3 in 1 sitting substance use type: does not use caffeine: Yes (1-2) Type: coffee frequency: 1-2 times per week do you feel safe at home: Yes ROS Const Const: Negative for fatigue or weakness Eyes Eyes: Negative for change in vision ENT ENT: Negative for dizziness or balance problems Cardio Chest Pain: No Palpitations: No Edema: Bilateral (Mild) Resp Respiratory: Negative for SOB with activity, SOB at rest or SOB orthopnea\SOB lying down GI GI: Negative nausea or heartburn Musc Musc: Negative for balance problems Neuro Neuro: Negative for dizziness, lightheadedness, near syncope, syncope or weakness Endo Endo: Negative for fatigue Cardiology Exam [...] JVD Carotids: normal carotid upstroke Chest Chest inspection: normal inspection of the chest, symmetric chest movement and normal respiratory effort; Negative cough Auscultation: Bilateral: Clear to Auscultation Cardio Rate: regular rate Rhythm: regular rhythm Heart sounds: S1 normal and S2 normal; Negative rub, gallop or murmur GI GI: normal to inspection and obese Neuro General: patient alert, patient awake, patient oriented x3 and CN's II-XI intactbilaterally Skin Skin: no rashes or lesions noted Extremities Pulses: Normal: Right Posterior Tibial Pulse, Left Posterior Tibial Pulse, RightRadial Pulse and Left Radial Pulse Lower Extremity Edema: None: Bilateral Psych Psychological: normal affect Supplemental Info Supplemental Information ECHOCARDIOGRAM 04/09/2021 Interpretation Summary Normal LV size. Left ventricular systolic function is normal. The estimated ejection fraction is 60 %. Normal diastology for age. Stress Test from 10/24/2022: Conclusion: Normal exercise myocardial perfusion stress test at a moderate workload Preserved ejection fraction. Chest CTA 08/14/22 FINDINGS: PULMONARY ARTERIES: There is NO PE. Normal in caliber. No evidence of pulmonary embolism. AORTA: There is atherosclerotic calcification of the aortic arch with tortuosity and elongation of the aortic arch and descending thoracic aorta. Normal in caliber. No evidence of dissection. GREAT VESSELS OF AORTIC ARCH: Unremarkable. Normal in caliber. No evidence of dissection. LUNGS AND PLEURAL SPACES: There is bilateral pneumonia. No mass. No pleural effusion or thickening. HEART: There are calcifications of the coronary arteries. No pericardial effusion. No signs of right heart strain, ratio of right ventricle to left ventricle measures less than 1. Assessment and Plan Assessment and Plan (1) Supraventricular tachycardia: Status: Chronic Plan: Patient did have an episode of SVT earlier this month. He did convert with 6 mgof adenosine. He has not had any symptoms since then. He is agreeable to proceed with an ablation. He would like to have this scheduled for February. (2) Essential hypertension: Status: Chronic Plan: Initially elevated upon recheck better controlled. He will continue with his metoprolol, losartan and hydrochlorothiazide. (3) Hyperlipidemia: Status: Chronic Qualifiers: Hyperlipidemia type: mixed hyperlipidemia Qualified Code(s): E78.2 - Mixed hyperlipidemia Plan: Patient will continue with high intensity statin. Lipid panel from 11/17/2022 showed total cholesterol: 146, HDL: 32, LDL: 93, and triglycerides: 103. Will recheck his lipids at his next office visit (4) Atherosclerotic heart disease of [place] coronary artery without angina pectoris: Status: Chronic Qualifiers: [place] vs. transplanted heart: [place] heart Qualified Code(s): I25.10 -Atherosclerotic heart disease of [place] coronary artery without angina pectoris Plan: Heart catheterization on 06/12/2013 showed LAD with mild diffuse disease in RCA with 30-40% disease in multiple areas that include posterior descending artery and posterolateral artery. As he is proceeding with ablation, he underwent a stress test to ensure no progressive coronary arteries given his strong family history and history of residual disease. It was negative for ischemia. He will continue current medical therapy and we will continue to monitor. Orders: Orders Basic Metabolic Profile (BMP) 02/03/25 E78.2 - Mixed hyperlipidemia, I10 - Essential (primary) hypertension, I25.10 - Atherosclerotic heart disease of [place] coronary artery without angina pectoris, I47.1 - Supraventricular tachycardia CBC W/Diff, Automated 02/03/25 E78.2 - Mixed hyperlipidemia, I10 - Essential (primary) hypertension, I25.10 - Atherosclerotic heart disease of [place] coronary artery without angina pectoris, I47.1 - Supraventricular tachycardia Chest PA and Lateral 02/03/25 E78.2 - Mixed hyperlipidemia, I10 - Essential (primary) hypertension, I25.10 - Atherosclerotic heart disease of [place] coronary artery without angina pectoris, I47.1 - Supraventricular tachycardia 12 Lead EKG performed by [facility] E78.2 - Mixed hyperlipidemia, I10 - Essential (primary) hypertension, I25.10 - Atherosclerotic heart disease of [place] coronary artery without angina pectoris, I47.1 - Supraventricular tachycardia Patient Instructions: Your procedure is schedule for 02/20/25 at 1000, with an arrival time of 0830. This time may change. The bean sprout laborer will call you the day before with the exact time. Nothing to eat or drink after midnight. Stop your metoprolol 3 days prior to the procedure. you will hold this starting 02/17. With a small sip of water take your morning medications. You will need a spike driver. You may need to spend the night. Get your labs and CXR done the beginning of February. Plan Details Additional Comments: Thank you for allowing us to participate in the patients plan of care, if you have any questions please do not hesitate to call. This note was generated using a voice recognition system and there may be incorrect words, spelling or punctuation that were not noted when reviewing the office note prior to saving. Portions of this documentation were copied and pasted from previous office visitnotes to provide a cohesive continuity of the history. The note has been reviewed, edited, and updated, as necessary. 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 transplanted heart: [place] heart Coding Level of Care Code Off vis,est,level 3 Diagnoses Supraventricular tachycardia I47.1 Essential hypertension I10 Mixed hyperlipidemia E78.2 Hyperlipidemia type: mixed hyperlipidemia Atherosclerosis of [place] coronary artery of [place] heart without angina pectoris I25.10 [place] vs. transplanted heart: [place] heart Clinical Quality Measures Falls Risk Screening/Assistive Devices Have you fallen in the past year?: No Cardiac Ejection fraction %: 60 12/25/24 1019 <Electronically signed by Lenora Delgado> Date _ Lenora ARNDT Cosigner Signature: Date (if applicable) CC: Dr. Becki Larios MD ~ [facility] Work Phone: Reason for referral (narrative)* Diagnostic Procedure Only (Urgent) - Closed Specialty Diagnoses / Procedures Referred By Contac t Referred To Contact XR IMAGING Diagnoses Laceration of left hand with foreign body, initial encounter Procedures XR HAND GENERAL 3V PA/LAT/OBL LT X-RAY HAND MINIMUM 3 VIEWS Jeri Raza PA-C [address] [place] [address] [place] [id number] Referral ID Status Reason Start Date Expiration Date V isits Requested Visits Authorized [id number] Closed Auto-Generate d Referral 12/30/2020 01/29/2022 1 1 [facility] for referral (narrative)No reason for referral information availableWTwin City Hospital Work Phone: Reason for visit Narrative* Diagnostic Procedure Only (Urgent) - Closed Specialty Diagnoses / Procedures Referred By Deuce t Referred To Contact XR IMAGING Diagnoses Laceration of left hand with foreign body, initial encounter Procedures XR HAND GENERAL 3V PA/LAT/OBL LT X-RAY HAND MINIMUM 3 VIEWS Jeri Raza, PARosmeryC [address] [place] [address] [place] [id number] Referral ID Status Reason Start Date Expiration Date V isits Requested Visits Authorized [id number] Closed Auto-Generate d Referral 12/30/2020 01/29/2022 1 1 [facility] Advance Directives No Advanced Directives Records FoundDocuments on File Type Date Recorded 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 Advance Directive(s) 10/15/2015 7:30 AM Advance Directive Response Recorded Date/ Time Advance Directives No May 7:51am Living Will No May 26, 7:51am Power of Senior Pl Sql Developer No May 26, 2021 7:51am Advance Directive Response Recorded Date/ Time Advance Directives No May 8:51am Living Will No August 14, 2022 2 :18pm Power of Senior Pl Sql Developer No August 14, 2022 2:18pm Advance Directive Response Recorded Date/ Time Advance Directives No May 7:51am Living Will No August 14, 2022 1 :18pm Power of Senior Pl Sql Developer No August 14, 2022 1:18pm Advance Directive Response Recorded Date/ Time Do you have a Healthcare Power of Senior Pl Sql Developer? No November 13, 2024 8:03pm Advance Directives No May 8:51am Summary Purpose Family History No Family History Records Found Relationship Condition Age at Onset Recorded Date/T [...] EP Ablation of SVT / Atrial Flut (11719) Reason for Visit Atherosclerotic hear t disease of [place] coronary artery without angina pectoris Essential hypertension Hyperlipidemia Supraventricular tachycardia Chief Complaint Admit Date AFIB November 13, 2024 7: 42pm Chief Complaint Admit Date AFIB November 13, 2024 7: 42pm S/P [facility] 11/13November 21, 2024 2: 39pm Reason for Visit Admit Date Atherosclerotic heart diseas e of [place] coronary artery without angina pectoris November 21, 2024 2:39pm Essential hypertension November 21, 2024 2:39pm Hyperlipidemia November 21, 2024 2: 39pm Supraventricular tachycardia November 2:39pm Chief Complaint Admit Date AFIB November 13, 2024 7: 42pm S/P [facility] 11/13November 21, 2024 2: 39pm EST CARE-PPW GIVEN December 16, 2024 1:58pm Reason for Visit Admit Date Atherosclerotic heart diseas e of [place] coronary artery without angina pectoris November 21, 2024 2:39pm Essential hypertension November 21, 2024 2:39pm Hyperlipidemia November 21, 2024 2: 39pm Supraventricular tachycardia November 2:39pm Atherosclerotic heart diseas e of [place] coronary artery without angina pectoris December 16, 2024 1:58pm Essential hypertension December 16, 2 025 1:58pm Supraventricular tachycardia December 022024 1:58pm Encounter for screening for malignant ne oplasm of colon December 16, 2024 1:58pm Establishing care with new doctorpaulette for December 16, 2024 1:58pm Radiculopathy affecting upper extremity December 16, 2024 1:58pm Chief Complaint Admit Date AFIB November 13, 2024 7: 42pm S/P [facility] 11/13November 21, 2024 2: 39pm EST CARE-PPW GIVEN December 16, 2024 1:58pm INT LABS December 17, 2024 5:54am H&P/Ablation 02/20December 25, 2024 9:13am Reason for Visit Admit Date Atherosclerotic heart diseas e of [place] coronary artery without angina pectoris November 21, 2024 2:39pm Essential hypertension November 21, 2024 2:39pm Hyperlipidemia November 21, 2024 2: 39pm Supraventricular tachycardia November 2:39pm Elevated LFTs December 16, 2024 1:58pm Atherosclerotic heart diseas e of [place] coronary artery without angina pectoris December 16, 2024 1:58pm Essential hypertension December 16 025 1:58pm Supraventricular tachycardia December 022024 1:58pm Chews tobacco December 16, 2024 1:58pm Screening for depression December 16, 2024 1:58pm Immunization declined December 16 1:58pm Encounter for screening for malignant ne oplasm of colon December 16, 2024 1:58pm Establishing care with new doctor, paulette ware for December 16, 2024 1:58pm Radiculopathy affecting upper extremity December 16, 2024 1:58pm Neck pain December 16, 2024 1:58pm Atherosclerotic heart diseas e of [place] coronary artery without angina pectoris December 25, 2024 9:13am Essential hypertension December 25 025 9:13am Hyperlipidemia December 25, 2024 9:13am Supraventricular tachycardia December 032024 9:13am Additional Source Comments Source Comments (unrecognize d section and content) In the event this informatio n is protected by the Federal Confidentiality of Alcohol and Drug Abuse Patient Records regulations: The Federal rules restrict any use of the information to criminally investigate or prosecute any alcohol or drug abuse patient.[facility] the event this information is protected by the Federal Confidentiality of Alcohol and Drug Abuse Patient Records regulations: The Federal rules restrict any use of the information to criminally investigate or prosecute any alcohol or drug abuse patient.[facility] Reason for Visit (unrecogniz ed section and content) Reason Comments Finger Injury L hand 2nd finger hi t with hammer x30 mins Care Teams (unrecognized sec tion and content) [place] Relationship Specialty Start Date End Date Darien Ball III, MD NO FORWARDING ADDRESS PCP General 01/24/02 Team Status: Active Member Role [...] Physician Primary Care Provider Active Lui Lofton METEOROLOGIST LIAISON, METEOROLOGIST LIAISON-C Other Provider Active [place] Relationship Specialty Start Date End Date Darien Ball III, MD NO FORWARDING ADDRESS PCP General 01/24/02 Team Status: Active Member Role/Relationship Status Dates No Primary Care Physician Primary Care Provider Active Team Status: Inactive Member Role/Relationship Status Dates No Primary Care Physician Primary Care Provider Active Start: November 13, 2024 End: November 13, 2024 Dr. Tami Vázquze MD Emergency Provider Active S tart: November [...] 21, 2024 End: November 21, 2024 Lenora ARNDT PA Attending Provider Active Start: November 21, [...] December 16, 2024 End: December 16, 2024 Team Status: Active Member Role/Relationship Status Dates Dr. Becki Larios MD Primary care physician Active Team Status: Inactive Member Role/Relationship Status Dates No Primary Care Physician Primary care physician Activ e Start: November 13, 2024 End: November 13, 2024 Dr. Tami Vázquez MD Attending physician Active Start: November 13, 2024 End: November 13, 2024 Dr. Tami [facility]áz[facility] Active Start: November 13, 2024 End: November 13, 2024 Team Status: Inactive Member Role/Relationship Status Dates No Primary Care Physician Primary care physician Activ e Start: November 21, 2024 End: November 21, 2024 No Primary Care Physician Referring Provider Active Start: November 21, 2024 End: November 21, 2024 Lenora ARNDT PA Attending physician Active Start: November 21, 2024 End: November 21, 2024 Team Status: Inactive Member Role/Relationship Status Dates No Primary Care Physician Primary care physician Activ e Start: December 16, 2024 End: December 16, 2024 No Primary Care Physician Referring Provider Active Start: December 16, 2024 End: December 16, 2024 Dr. Becki Larios MD Attending physician Active Start: December 16, 2024 End: December 16, 2024 Team Status: Inactive Member Role/Relationship Status Dates Dr. Becki Larios MD Primary care physician Active Start: December 17, 2024 End: December 17, 2024 Dr. Becki Larios MD Attending physician Active Start: December 17, 2024 End: December 17, 2024 Dr. Becki Larios MD Referring Provider Active Start: December 17, 2024 End: December 17, 2024 Team Status: Inactive Member Role/Relationship Status Dates No Primary Care Physician Referring Provider Active Start: December 25, 2024 End: December 25, 2024 Lenora ARNDT, PA Attending physician Active Start: December 25, 2024 End: December 25, 2024 Dr. Becki Larios MD Primary care physician Active Start: December 25, 2024 End: December 25, 2024 (unrecognized sect ion and content) No Status Records FoundNo Status Records Found INFORMATION SOURCE (unrecogn ized section and content) DATE CREATED AUTHOR 10/22/2021 [facility] DATE CREATED AUTHOR AUTHOR'S ORGANIZ ATION 02/13/[address] [facility] Goals (unrecognized section and content) Goals [...] BE BASED ON THE PRIMARY CLINICAL RECORDS. [employer] provides no warranty or guarantee of the accuracy or completeness of information in this document.
== END | disposition home or self-care (01) ==
LOC: MRI 16:18
PROVIDERS: PCP Internal Medicine; Referring Provider Internal Medicine; Visit Provider Internal Medicine
DX: M54.12 Radiculopathy, cervical region (principal)
CPT/HCPCS: 70030; 72141

== ENCOUNTER 2025-02-20 08:22 | Day surgery (SDC) | payer BC, SELFPAY ==
--- NOTE | 2025-02-03 07:01 | RAD_ITS ---
PROCEDURE: CHEST PA AND LATERAL 02/03/2025 REASON FOR EXAM: PREPROCEDURE TECHNIQUE: Procedure Code: RADCXR Modality: DX Procedure: CHEST PA AND LATERAL COMPARISON: None. RAD/Chest PA and Lateral IMPRESSION: Lungs are somewhat hypoinflated, but appear clear of acute disease. No pleural effusion or pneumothorax is noted. The cardiomediastinal silhouette is within the normal range. Mild thoracic spine degenerative changes plus DISH also noted. No evidence of acute cardiopulmonary disease. Reading Location: [place] [id number]
[2025-02-03 07:39] LABS: Hematocrit 46.0 % (40-54); Hemoglobin 15.4 g/dL (13.0-16.5); Immature Granulocytes Count 0.050 X10^3/uL (0.0-0.0); Mean Corp Hgb Conc 33.5 g/dL (32-36); Mean Corpuscular Volume 86.6 fL (80-94); Mean Platelet Vol. 9.3 fl (6.2-12.0); NRBC Flagged by Analyzer 0 % (0-5); Platelet Count 301 K/mm3 (150-450); RBC Distribution Width CV 12.9 % (11.6-14.6); RBC Distribution Width SD 40.8 fl (35.1-43.9); Red Blood Count 5.31 M/mm3 (4.6-6.2); White Blood Count 8.4 K/mm3 (4.4-11.0)
[2025-02-03 08:38] LABS: Anion Gap 10 (5-15); BUN 17 mg/dL (4-19); BUN/Creat Ratio 17.8 RATIO (10-20); Calcium,Total 9.0 mg/dL (7.6-11.0); Carbon Dioxide 25.9 mmol/L (21.0-32.0); Chloride 103 mmol/L (98-108); Glucose 144 mg/dL (70-99); Potassium 4.2 mmol/L (3.3-5.1)
--- NOTE | 2025-02-11 17:16 | HP.PCM_ITS ---
History and Physical Supa Johnson is 59-year-old man with a history of hypertension, hyperlipidemia, tobacco abuse, who underwent a cardiac catheterization in 2013. He had no significant coronary artery disease noted. In February 2021 he had an episode of narrow complex tachycardia with a heart rate of 170. He did spontaneously convert with adenosine. He did have a recent diagnosis of COVID-[address] of his chest to rule out PE but it did show mild bilateral pneumonia. Troponins were essentially negative. There were mild coronary calcifications noted. He presented to [facility] Emergency Department on 08/14/2022 with palpitations. His EKG showed normal sinus rhythm. His work-up was negative. It was recommended to proceed with ablation. On account of recurrent palpitations he was agreeable. This has however not been scheduled due to a variety of issues. His stress test in October 2022 was negative and showed hypertensive response to exercise. Pt was in the ER in Nov for SVT. He did convert with 6 mg of adenosine. He has not had any symptoms since then. [facility] Medical History Obesity Atherosclerotic heart disease of [place] coronary artery without angina pectoris Pneumonia due to 2019 novel coronavirus (02/09/21) Supraventricular tachycardia (02/09/21) COVID-19 virus detected (01/27/21) Hyperlipidemia Essential hypertension Surgical History S/P colonoscopy History of left heart catheterization (06/12/13) Family History Father CAD (coronary artery disease), Onset Age: 68 Myocardial infarction Grandfather CAD (coronary artery disease) Brother CAD (coronary artery disease), Onset Age: 69 Sister CAD (coronary artery disease), Onset Age: 75 Brother Heart valve disease Mother Dementia Social History adopted: No household members: spouse and children number of children: 2 current occupational status: employed 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 pets and animals: Yes (1) pets and animals: dog(s) sexually active: Yes Smoking Status: Never smoker Smokeless tobacco user: chewing tobacco how long ago did patient quit smoking: Quit for 1 year, wants to quit again quit status: has quit before alcohol intake: current alcohol intake frequency: a few times a month Alcohol type: beer details: < 3 in 1 sitting substance use type: does not use caffeine: Yes (1-2) Type: coffee frequency: 1-2 times per week do you feel safe at home: Yes ROS Const Const: Negative for fatigue or weakness Eyes Eyes: Negative for change in vision ENT ENT: Negative for dizziness or balance problems Cardio Chest Pain: No Palpitations: No Edema: Bilateral (Mild) Resp Respiratory: Negative for SOB with activity, SOB at rest or SOB orthopnea\SOB lying down GI GI: Negative nausea or heartburn Musc Musc: Negative for balance problems Neuro Neuro: Negative for dizziness, lightheadedness, near syncope, syncope or weakness Endo Endo: Negative for fatigue Cardiology Exam Const Appearance: cooperative, healthy appearing, comfortable and no acute distress Nutritional Appearance: well nourished and obese Orientation: alert, awake and oriented x3 Head Head: normal to inspection Ears: hearing grossly normal bilaterally Nose: external nose normal Face and Sinus: face symmetric Mouth: moist mucous membranes Eyes General: appearance normal, both eyes and all related structures Eyelids: eyelids normal EOM: EOM intact bilaterally Neck Neck: normal visual inspection and no JVD Carotids: normal carotid upstroke Chest Chest inspection: normal inspection of the chest, symmetric chest movement and normal respiratory effort; Negative cough Auscultation: Bilateral: Clear to Auscultation Cardio Rate: regular rate Rhythm: regular rhythm Heart sounds: S1 normal and S2 normal; Negative rub, gallop or murmur GI GI: normal to inspection and obese Neuro General: patient alert, patient awake, patient oriented x3 and CN's II-XI intact bilaterally Skin Skin: no rashes or lesions noted Extremities Pulses: Normal: Right Posterior Tibial Pulse, Left Posterior Tibial Pulse, Right Radial Pulse and Left Radial Pulse Lower Extremity Edema: None: Bilateral Psych Psychological: normal affect Assessment & Plan Assessment/Plan (1) Supraventricular tachycardia: PLAN: Patient will undergo his SVT ablation and follow-up accordingly. (2) Essential hypertension: PLAN: He will continue with his metoprolol, losartan and hydrochlorothiazide. (3) Hyperlipidemia: QUALIFIERS: Hyperlipidemia type: mixed hyperlipidemia Qualified Code(s): E78.2 - Mixed hyperlipidemia PLAN: Patient will continue with high intensity statin. (4) Atherosclerotic heart disease of [place] coronary artery without angina pectoris: QUALIFIERS: [place] vs. transplanted heart: [place] heart Qualified Code(s): I25.10 - Atherosclerotic heart disease of [place] coronary artery without angina pectoris PLAN: Heart catheterization on 06/12/2013 showed LAD with mild diffuse disease in RCA with 30-40% disease in multiple areas that include posterior descending artery and posterolateral artery. As he is proceeding with ablation, he underwent a stress test to ensure no progressive coronary arteries given his strong family history and history of residual disease. It was negative for ischemia. He will continue current medical therapy and we will continue to monitor.
[2025-02-19 09:07] VITALS: BMI 34.0
[2025-02-20] VITALS (13 sets, daily range): BP systolic 135–155; BP diastolic 69–96; PULSE 75–89; RESP 16–19; TEMP 36.6–37.1; O2SAT 93–99; BMI 34.0
--- NOTE | 2025-02-20 11:25 | ELECTROSTU_ITS ---
Electrophysiology Report Electrophysiology Report Samuel Johnson is a 59 year old male who has a past medical history of CAD, HTN, and SVT, who presented to the [place] [facility] lab for further evaluation regarding SVT. Procedure Summary * Patient prepped and draped in sterile fashion. * Right groin infiltrated with lidocaine. * Right femoral access obtained x3 with ultrasound guidance. * Sheaths inserted into femoral veins via Seldinger technique. * Catheters inserted through right groin. * EPS results listed below in conclusions. * Sheaths pulled in lab and hemostasis achieved per protocol. Findings: BASELINE ISUPREL SCL: 824ms SCL: N/A ms AH: 83ms AH: N/Ams HV: 50ms HV: N/Ams Maximum SNRT: 1100ms CSNRT: 276 ms AVBCL: 370ms AVBCL: N/Ams VABCL: 490ms VABCL: N/Ams Decremental Conduction? Y Decremental Conduction? N/A Concentric: Y Concentric: N/A AP BCL: N/Ams AVN ERP <200ms @ 600ms AVN ERP N/Ams @ N/Ams AP ERP N/Ams @ N/Ams AP ERP N/Ams @ N/Ams VAERP 380ms @ 600ms VERP N/Ams @ N/Ams BASELINE ISUPREL Inducible Tachycardia: Y Inducible Tachycardia: N/A Diagnosis: AVNRT Diagnosis: N/A VA interval at Hisduring tachycardia: <70ms VA interval at Hisduring tachycardia: N/A Ablation of: slow pathway Ablation Parameters: power titration Ablation Catheter Used: irrigated RF Results of Ablation Site of Ablation: slow pathway Successful Post Ablation Testing BASELINE ISUPREL SCL: 780ms SCL: N/Ams AH: 78ms AH: N/Ams HV: 50ms HV: N/Ams AVBCL: 420ms AVBCL: N/Ams AVN ERP 420ms @ 600ms AVN ERP N/Ams @ N/Ams VA BCL: 490 ms VA BCL: N/Ams Bidirectional Block Achieved: N/A Septal to Lateral Block Conduction Time: N/A Lateral to septal Block Conduction Time: N/A Conclusions 1. Baseline rhythm is sinus rhythm. 2. Normal sinus node function (longest SNRT 1100ms). 3. Normal AV node function, normal infranodal conduction (HV= 50ms). 4. No evidence of accessory pathway. 5. 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 6. VA conduction present and is decremental. 7. Rf applied to slow pathway with multiple junctional beats. No inducible tachycardia post ablation. Recommendations 1. Routine post-procedure monitoring. observe overnight 2. Bedrest for 3 hours 3. The patient can continue to follow-up with Dr. Fry.
[2025-02-21] VITALS: PULSE 57
[2025-02-21 02:12] VITALS: BP 130/83; PULSE 66; RESP 17; TEMP 36.7; O2SAT 97
[2025-02-21 03:00] VITALS: BP 130/83; PULSE 53; RESP 14; TEMP 36.9; O2SAT 95
[2025-02-21 03:50] LABS: Hematocrit 41.3 % (40-54); Hemoglobin 13.8 g/dL (13.0-16.5); Mean Corp Hgb Conc 33.4 g/dL (32-36); Mean Corpuscular Volume 86.9 fL (80-94); Mean Platelet Vol. 9.3 fl (6.2-12.0); Platelet Count 197 K/mm3 (150-450); RBC Distribution Width CV 12.8 % (11.6-14.6); RBC Distribution Width SD 40.8 fl (35.1-43.9); Red Blood Count 4.75 M/mm3 (4.6-6.2); White Blood Count 7.8 K/mm3 (4.4-11.0)
[2025-02-21 04:13] LABS: Anion Gap 10 (5-15); BUN 15 mg/dL (4-19); BUN/Creat Ratio 16.3 RATIO (10-20); Calcium,Total 8.4 mg/dL (7.6-11.0); Carbon Dioxide 23.9 mmol/L (21.0-32.0); Chloride 105 mmol/L (98-108); Estimated Creatinine Clearance 113.20 ml/min (50-250); Glucose 145 mg/dL (70-99); Potassium 4.1 mmol/L (3.3-5.1)
[2025-02-21] MEDS: 0.9% Saline Lock 10 ML Syringe IV (04:21)
[2025-02-21 05:02] LABS: Partial Thromboplast Time 26.8 Seconds (24.1-36.2); Prothrombin Time (Protime)PT. 13.5 SECONDS (11.7-14.9)
--- NOTE | 2025-02-21 06:42 | PN.CARD_ITS ---
Subjective Subjective Patient seen and evaluated. Appears to be doing well. Objective Data Vital Signs: Vital Signs Temp Pulse Resp BP Pulse Ox O2 Del Method 98.5 F 53 L 14 130/83 H 95 Room Air 02/21/25 03:00 02/21/25 03:00 02/21/25 03:00 02/21/25 03:00 02/21/25 03:00 02/21/25 05:42 Oxygen Delivery Method Room Air Weight: 258 lb 0.006 oz Body Mass Index (BMI) 34.0 Intake & Output: Intake and Output for Last 24 Hours 02/19/25 02/20/25 02/21/25 23:59 23:59 23:59 Intake Total 570 / 570 Balance 570 / 570 Lab / Micro Data 02/21/25 03:44 02/21/25 03:44 Labs: Laboratory Results - last 24 hr 02/21/25 03:44: WBC 7.8, RBC 4.75, Hgb 13.8, Hct 41.3, MCV 86.9, MCH 29.1, MCHC 33.4, RDW Std Deviation 40.8, RDW Coeff of Luis Armando 12.8, Plt Count 197, MPV 9.3, PT Cancelled, INR Cancelled, APTT Cancelled, Sodium 138, Potassium 4.1, Chloride 105, Carbon Dioxide 23.9, Anion Gap 10, BUN 15, Creatinine 0.93, Estim Creat Clear Calc 113.20, Est GFR (MDRD) Non-Af 94, BUN/Creatinine Ratio 16.3, Glucose 145 H, Calcium 8.4 02/21/25 04:32: PT 13.5, INR 1.0, APTT 26.8 Cardiology Labs/Tests 02/21/25 03:44: WBC 7.8, RBC 4.75, Hgb 13.8, Hct 41.3, MCV 86.9, MCH 29.1, MCHC 33.4, Plt Count 197, MPV 9.3, PT Cancelled, INR Cancelled, APTT Cancelled, Sodium 138, Potassium 4.1, Chloride 105, Carbon Dioxide 23.9, Anion Gap 10, BUN 15, Creatinine 0.93, Est GFR (MDRD) Non-Af 94, BUN/Creatinine Ratio 16.3, G lucose 145 H, Calcium 8.4 02/21/25 04:32: PT 13.5, INR 1.0, APTT 26.8 Rhythm: EKG: ECHO: Stress Test: Cardiac Cath: PCI: CT Surgery: Holter monitor: EPS: PPM: CXR: Chest CT Scan: Physical Exam Const alert and oriented x3 Orientation / Consciousness: awake Eyes PERRL Neck full ROM Carotids: normal carotid upstroke Chest inspection of chest normal Cardio regular rhythm Extremity normal to inspection Assessment & Plan Assessment/Plan (1) Supraventricular tachycardia: PLAN: History of supraventricular tachycardia status post ablation. Patient will be followed up in the office. Appears to be doing well at this time.
--- NOTE | 2025-02-21 06:46 | DCINST_ITS ---
Discharge Instructions DC O2, CPAP, BIPAP needs Home O2 Discharge instructions: No Dressing / Incision Discharge Activity: Return to Normal Activity Lifting Restrictions: 10 pounds and also avoid any pushing or pulling for 3 days after your test. Additional Activity Instructions:: You must have someone drive you home. Do not drive until instructed by your doctor. You must have someone stay with you all night after your test. Rest in bed or on the couch until the next morning. Limit the number of times you go up and down stairs the day of your test. Apply pressure to the puncture site if you sneeze or cough. Dressing / Incision Call your doctor if your incision/area has: Increased Pain/ Swelling, Increased Redness, Foul Smelling Discharge and Swelling at the incision site Call your doctor if you observe: Fever of 101 or Higher Additional Dressing/Incision Instructions:: Keep the dressing (bandage) on until the next morning. You may then shower, but do not take a tub bath for 5 days after your test. It is normal to have some tenderness and discomfort at the puncture site. Sometimes bruising also occurs. However, if pain, numbness, or coldness occurs below the puncture site (in your leg, toes, arms or fingers) call your doctor at once. You may have a small, marble sized knot at the puncture site. This is normal. Do not rub it. It will go away in 4-6 weeks. Bleeding can occur from the area where the puncture was done. Blood may spurt or drip from the site. If blood spurts, apply pressure right away to stop bleeding and call 911. Although rare, bleeding into the tissue (hematoma) can also occur. If this happens, a large, firm area "goose egg" under the skin will appear. If any of these occur, lie down as flat as you can and have someone apply firm pressure to the cath site with a gauze pad or a clean washcloth for 10-15 minutes. Call 911 or go to the Emergency Department. Follow Up Care Test Results: Test results from this visit will be discussed in further detail at your follow- up appointment, if applicable. Discharge Plan Admission Attending Provider: Jarrod Crain Primary Care Provider: Becki Larios Instructions Print Language: Bel[place]ian Discharge Orders/Prescriptions Prescriptions: Continued aspirin [Adult Aspirin Regimen] 81 mg tablet,delayed release (DR/EC) 81 mg PO DAILY losartan 50 mg tablet 50 mg PO DAILY Qty: 90 3RF atorvastatin 80 mg tablet 80 mg PO DAILY Patient Comments: cholesterol lowering hydrochlorothiazide 12.5 mg capsule 12.5 mg PO DAILY Qty: 90 3RF metoprolol succinate 25 mg tablet extended release 24 hr 25 mg PO DAILY Qty: 90 3RF Patient Comments: blood pressure Referrals / Follow Up: Becki Larios MD [Primary Care Provider, Internal Medicine] Disposition Disposition (needs filled in before D/C Order can be placed): Home, Self Care
[2025-02-21 07:30] VITALS: BP 143/79; PULSE 61; RESP 16; TEMP 36.6; O2SAT 95
--- NOTE | 2025-02-21 07:31 | PHA.DC.MR.R ---
Pharmacy [place] Med Reconciliation Pharmacy Service has performed discharge medication reconciliation for this patient. The patient's discharge medication list was reviewed for discrepancies and discrepancies were resolved. Medications at Discharge Home Medications aspirin 81 mg tablet,delayed release (Adult Aspirin Regimen) 81 mg PO DAILY 08/11/21 losartan 50 mg tablet 50 mg PO DAILY #90 tabs 11/21/24 hydrochlorothiazide 12.5 mg capsule 12.5 mg PO DAILY #90 caps 02/13/25 metoprolol succinate 25 mg tablet,extended release 24 hr 25 mg PO DAILY #90 TABLETS 02/13/25 atorvastatin 80 mg tablet 80 mg PO DAILY 02/20/25
== END 2025-02-21 07:45 | disposition home or self-care (01) ==
LOC: CLSP 08:23 → ICU 11:56
PROVIDERS: Physician Assistant Medical; PCP Internal Medicine; Referring Provider Internal Medicine; Visit Provider Internal Medicine
DX: I47.10 Supraventricular tachycardia, unspecified (principal); I10 Essential (primary) hypertension; E78.5 Hyperlipidemia, unspecified; I25.10 Atherosclerotic heart disease of native coronary artery without angina pectoris; Z86.16 Personal history of COVID-19; Z79.899 Other long term (current) drug therapy
CPT/HCPCS: 36415; 71046; 76937; 80048; 85025; 85027; 85610; 85730; 93653; 99152; 99153; C1730; C1894; C2630; A4216